=== PATIENT | female | born 1935 | race Caucasian/White ===

== ENCOUNTER → 2016-06-30 | Outpatient (CLI) | payer OTHER ==
[~2016-06-30] MED LIST: ALPR-411 PO; ASPI81TA28 PO; ATOR-22 PO; BROM0.0911 OPR; CALC-214 PO; CHOL20009 PO; CLIN1CAP51 PO; HYDR25TA4 PO; LEVO50TA6 PO; METO1TAB68 PO; MULT-513 PO; POTA20TA16 PO; PRED1SUS3 OPR; TAMO20TA47 PO
[2016-06-30 12:44] LABS: BLOOD UREA NITROGEN 16 mg/dl (7-18)
== END | disposition home or self-care (01) ==
LOC: C.LABPVFM 10:10
PROVIDERS: ATTEND Radiology Radiation Oncology
DX: C50.112 Malignant neoplasm of central portion of left female breast (principal); R91.8 Other nonspecific abnormal finding of lung field

== ENCOUNTER → 2016-07-31 | Outpatient (CLI) | payer OTHER ==
[2016-07-31 13:05] LABS: BLOOD UREA NITROGEN 16 mg/dl (7-18); BUN/CREATININE RATIO 13.5 (10-20); CARBON DIOXIDE 26 mmol/L (21-32); CHLORIDE 100 mmol/L (98-107); GLUCOSE 107 mg/dl (70-99); POTASSIUM 3.7 mmol/L (3.5-5.1); SODIUM 137 mmol/L (136-145)
== END | disposition home or self-care (01) ==
LOC: C.LABPVFM 09:35
PROVIDERS: ATTEND Family Medicine
DX: I10 Essential (primary) hypertension (principal); E03.8 Other specified hypothyroidism; E03.4 Atrophy of thyroid (acquired)

== ENCOUNTER 2022-12-16 22:29 | Inpatient (IN) ==
--- NOTE | 2022-12-16 23:38 | Emergency Department Note ---
History of Present Illness General Chief complaint: Hip Pain Stated complaint: FELL,HURT LEFT HIP Time Seen by Provider: 12/16/22 23:05 History of Present Illness Maximum Pain Intensity: 8 87-year-old female presents to the emergency department accompanied by daughter for evaluation of left hip pain. Patient states she was emptying her garbage can yesterday off of her deck and lost her balance and fell landing onto the left hip. Deck height approximately 1.5 feet. She denies hitting her head or loss of consciousness. She is not on any blood thinner. She notes pain in her left groin and hip and is unable to ambulate. She typically walks with a cane but has been unable to since incident yesterday. She denies numbness/tingling into the distal extremity. She did denies previous hip injury or surgery. She did have her left knee replaced a long time ago. She denies chest pain, shortness of breath, abdominal pain, rib pain, upper extremity pain, fever/chills, nausea/vomiting. She took Tylenol at 1030 for her symptoms. Home Medications Medication Instructions Recorded Confirmed Type ASPIRIN (ASPIRIN EC) 81 mg PO HS ##0 11/24/15 History ATORVASTATIN (LIPITOR) 1 tab PO HS ##0 11/24/15 History Clindamycin HCl 4 cap PO prior to dental ##0 11/24/15 History LEVOTHYROXINE SODIUM 1 tab PO QAM ##0 11/24/15 History METOPROLOL SUCCINATE (TOPROL XL) 1 tab PO QAM ##0 11/24/15 History Multivitamins/Minerals (Mvi With 1 tab PO NOON #0 tabs 11/24/15 History Minerals) CALCIUM W/ MAGNESIUM (CALCIUM & 1 tab PO QAM ##0 11/30/15 History MAGNESIUM) CHOLECALCIFEROL (VITAMIN D) 1 tab PO QAM ##0 11/30/15 History Allergies Allergy/AdvReac Type Severity Reaction Status Date / Time celecoxib Allergy Intermediate shaking Unverified 01/17/16 06:51 sensations erythromycin base Allergy Intermediate ABDOMINAL Verified 01/17/16 06:51 PAIN latex Allergy Intermediate dermatitis Unverified 01/17/16 06:51 Penicillins Allergy Intermediate SWELLING Verified 01/17/16 06:51 Sulfa (Sulfonamide Allergy Intermediate SWELLING Verified 01/17/16 06:51 Antibiotics) NARCOTICS Allergy Intermediate PAIN, Uncoded 11/30/15 08:19 SHAKES, VOMITING Past Med/Surg History Social History Smoking Status: Former smoker Hx Alcohol Use: Yes Alcohol type: wine Hx Substance Use: No Preferred Language: Spanish C Python Developer Required: No Beliefs That Will Affect Care: None Current Living Situation: Alone Feels Safe at Home: Yes Assistive Devices: Cane Physical Exam Vital Signs Vital Signs - 24 hr 12/16/22 22:32 12/17/22 01:31 12/17/22 02:31 Temperature 36.9 C Temperature Source Temporal Artery Scan Pulse Rate 70 Pulse Rate [Apical] 80 68 Respiratory Rate 19 18 17 Respiratory Effort / Characteristics Respiratory Depth Respiratory Pattern Blood Pressure 176/80 H Blood Pressure [Right Arm] 182/98 H 196/96 H Blood Pressure Mean 112 Blood Pressure Mean [Right Arm] 126 129 Pulse Oximetry 95 95 97 Oxygen Delivery Method Room Air Room Air Room Air Sepsis Recent Fever Within 48 Hours No Sepsis New/Unexplained Change in Mental Status N/A Sepsis Action Taken by Nursing No Action Required 12/17/22 04:07 12/17/22 05:26 Temperature Temperature Source Pulse Rate Pulse Rate [Apical] 81 79 Respiratory Rate 14 16 Respiratory Effort / Characteristics Non-Labored Spontaneous Non-Labored Spontaneous Respiratory Depth Normal Normal Respiratory Pattern Regular Blood Pressure Blood Pressure [Right Arm] 182/91 H 202/95 H Blood Pressure Mean Blood Pressure Mean [Right Arm] 121 130 Pulse Oximetry 98 94 Oxygen Delivery Method Room Air Room Air Sepsis Recent Fever Within 48 Hours Sepsis New/Unexplained Change in Mental Status Sepsis Action Taken by Nursing Constitutional: alert and oriented x3. no acute distress. nontoxic. HEENT: normocephalic, atraumatic. normal conjunctiva.PERRLA. EOM's grossly intact. TMs pearly alvarez without effusion. Pharynx pink without exudate. Tonsils nonenlarged. Mucus membranes moist Neck: neck is supple, nontender. midline C-spine nontender Respiratory: lungs are clear to auscultation without wheezes, rhonchi, or rales bilaterally. equal chest rise. normal respiratory effort, no accessory muscle use. Cardiovascular: normal heart sounds without murmur. regular rate and rhythm. GI: abdomen is soft, nontender. No palpable masses. No rebound tenderness or guarding. No CVA tenderness MSK: Tender to palpation left groin. Nontender over the left lateral hip/femur. Knee and ankle nontender. No extremity shortening or rotation. Pain elicited with hip flexion. Left lower extremity range of motion intact. Strength +4 and equal bilateral lower extremities Peripheral vascular: Lower extremities warm and well perfused with palpable pedal pulses. Brisk capillary refill of all digits. Sensation intact Psych:appropriate mood and affect. Course Administered Medications Calcium/Vitamin D (Calcium 600mg + Vit D 400 Iu Tab) [facility] [place]: 01/16/23 08:59 Last Admin: 12/17/22 10:08 Dose: 1 tab Documented By: ANASTACIO Heparin Sodium (Porcine) (Heparin Sod 5,000 Unit/0.5 Ml Vial) 5,000 units SQ Q8 [facility] Stop: 01/16/23 08:49 Last Admin: 12/17/22 10:12 Dose: 5,000 units Documented By: ANASTACIO Hydralazine HCl (Hydralazine Hcl 20 Mg/Ml Vial) 7.5 mg IV Q6H PRN PRN Reason: Hypertension Stop: 01/16/23 08:49 Last Admin: 12/17/22 09:06 Dose: 7.5 mg Documented By: ANASTACIO Levothyroxine Sodium (Levothyroxine Sodium 50 Mcg Tablet) [facility]cg [facility] Stop: 01/16/23 06:29 Last Admin: 12/17/22 10:08 Dose: 50 mcg Documented By: ANASTACIO Metoprolol Succinate (Metoprolol Succ 50mg Ext Rel Tab) 100 mg PO [facility] Stop: 01/16/23 08:59 Last Admin: 12/17/22 10:07 Dose: 100 mg Documented By: ANASTACIO Multivitamins/Minerals (Cerovite Adv Formula Tab) 1 tab PO DAILY@1200 [facility] Stop: 01/16/23 11:59 Last Admin: 12/17/22 10:08 Dose: 1 tab Documented By: ANASTACIO Vitamin D (Cholecalciferol 1,000 Units 25 Mcg Tab) 2,000 units PO QAM TIM Stop: 01/16/23 08:59 Last Admin: 12/17/22 10:07 Dose: 2,000 units Documented By: ANASTACIO Discontinued Medications Sodium Chloride (Nss 1000ml) 1,000 mls @ 75 mls/hr IV .[id number] TIM Stop: 12/17/22 22:09 Last Admin: 12/17/22 09:06 Dose: 75 mls/hr Documented By: ANASTACIO Medical Decision Making Differential Diagnosis Fracture, subluxation, dislocation, contusion, ligamentous injury, neurovascular, compartment syndrome, rhabdomyolysis, as well as other pathologies. Laboratory Data Attestation: I reviewed the patient's lab results. 12/17/22 00:41 12/17/22 09:06 Lab Results 12/17/22 12/17/22 12/17/22 Range/Units 00:41 00:41 01:30 WBC 6.16 (4.8-10.8) K/ul RBC 3.31 L (4.20-5.40) M/uL Hgb 11.0 L (12.0-16.0) g/dl Hct 31.7 L (37.0-47.0) % MCV 95.8 (80.0-100.0) fL MCH 33.2 (25.0-34.0) pg MCHC 34.7 (32.0-36.0) g/dL RDW Std Deviation 40.2 (36.4-46.3) fL RDW Coeff of Gayle 11.5 (11.5-14.5) % Plt Count 184 (130-400) K/uL MPV 9.9 (9.4-12.4) fL Immature Gran % (Auto) 0.3 % Neut % (Auto) 69.0 % Lymph % (Auto) 16.9 % [place] % (Auto) 13.1 % Eos % (Auto) 0.5 % Baso % (Auto) 0.2 % Neut # (Auto) 4.25 (1.40-6.50) K/uL Lymph # (Auto) 1.04 L (1.2-3.4) K/uL [place] # (Auto) 0.81 H (0.11-0.59) K/uL Eos # (Auto) 0.03 (0-0.50) K/uL Baso # (Auto) 0.01 (0-0.2) K/uL Immature Gran # (Auto) 0.02 (0.01-0.20) K/uL Sodium 126 L (136-145) mmol/L Potassium 4.1 (3.5-5.1) mmol/L Chloride 95 L (98-107) mmol/L Carbon Dioxide 25 (21-32) mmol/L Anion Gap 6 (3-11) BUN 16 (6-23) mg/dl Creatinine 1.06 (0.6-1.2) mg/dl Est Cr Clr Drug Dosing Not Reportable Est GFR ( Amer) 55.4 ml/min Est GFR (Non-Af Amer) 47.8 ml/min BUN/Creatinine Ratio 15.1 (10-20) Glucose 121 H (70-99(Fasting)) mg/dl Calcium 9.4 (8.6-10.3) mg/dl SARS-CoV-2, RNA, NAAT NEGATIVE (NEGATIVE) Imaging Data My Impression: Left hip with pelvis x-ray per my interpretation demonstrates left inferior ramus pubic fracture Radiologist's Impression: Hip/Pelvis X-Ray 12/16/22 23:32 XR hip LT 2V w pelvis CLINICAL HISTORY: fall, groin pain COMPARISON: None FINDINGS: No proximal femoral fractures are present. Lucency and subtle cortical irregularity of the medial left pubic bone favors a fracture. There is also a suspected acute nondisplaced inferior left pubic ramus fracture. IMPRESSION: 1. Acute left pubic ring fractures, as above. 2. No proximal femoral fractures. ACT 112: Negative or not required by law. Electronically signed by: Joseph Peña M.D. 12/17/2022 7:[address] 12/17/22 00:04 Exam(s): CT PELVIS Without Contrast EXAM: CT Pelvis Without Intravenous Contrast CLINICAL HISTORY: Reason for exam: concern for L inferior ramus fx on xr. TECHNIQUE: Axial computed tomography images of the pelvis without intravenous contrast. Automated exposure control was utilized for the study. A dose lowering technique was utilized adhering to the principles of ALARA. COMPARISON: No relevant prior studies available. FINDINGS: Bowel: Unremarkable. No obstruction. No mucosal thickening. Appendix: No findings to suggest acute appendicitis. Intraperitoneal space: Unremarkable. No free air. No significant fluid collection. Bladder: Unremarkable. No stones. Reproductive: Unremarkable as visualized. Bones/joints: There is a nondisplaced fracture of the left inferior pubic ramus (image 98 series 3). There are degenerative changes of the lumbar spine. No dislocation. Soft tissues: Residual suture material in the rectus musculature. Vasculature: There is diffuse atherosclerotic calcification of the aorta and its major branch vessels. No lower abdominal aortic aneurysm. Lymph nodes: Unremarkable. No enlarged lymph nodes. IMPRESSION: Nondisplaced left inferior pubic ramus fracture. Electronically signed by: Alvaro Feliciano MD 12/17/22 01:08 AM MDM Narrative 87-year-old female who presents to the emergency department accompanied by family for evaluation of left groin/hip pain s/p mechanical fall yesterday. Review of pertinent visits and past medical history performed. Vital signs stable, afebrile. On exam, patient is nontoxic-appearing in no acute distress. She is tender to palpation over the left groin. No significant tenderness over the left lateral hip. No obvious lower extremity shortening or rotation. Range of motion is intact with pain elicited during hip flexion. The left lower extremity is neurovascularly intact. X-ray of the left hip with pelvis was performed and demonstrates possible left inferior ramus fracture. CT of the pelvis was performed for definitive diagnosis and demonstrate nondisplaced left inferior pubic ramus fracture. Patient declined need for pain medications while in the ED. Upon reevaluation, patient remained stable with no new concerns. They were updated on all exam findings and test results. She has sustained a nondisplaced pelvic fracture. Left lower extremity is neurovascularly intact and her pain is currently adequately controlled. An ambulatory trial was attempted but patient was unable to perform secondary to pain. We discussed treatment options. Given ambulatory dysfunction, I do feel admission to the hospital for inpatient rehab is warranted at this time. Patient and family are agreeable to this. Basic labs were obtained for admission and significant for hyponatremia of 126. Case was discussed with hospitalist, Dr. Lazaro, who graciously excepted patient to his service for further management. Patient was admitted in stable condition. Impression & Plan Pelvic fracture, Hyponatremia Discharge Plan Visit Data Chief Complaint: Hip Pain Stated Complaint: FELL,HURT LEFT HIP ED Provider: Lita Lemus ED Midlevel Provider: Tamy Maier Discharge Problem: Pelvic fracture, Hyponatremia Patient Disposition: Admitted As Inpatient Discharge Instructions Interventions: ED Discharge Assessment Last Done: 12/17/22 08:21
--- NOTE | 2022-12-17 01:09 | CT Scan Report ---
Exam(s): CT PELVIS Without Contrast EXAM: CT Pelvis Without Intravenous Contrast CLINICAL HISTORY: Reason for exam: concern for L inferior ramus fx on xr. TECHNIQUE: Axial computed tomography images of the pelvis without intravenous contrast. Automated exposure control was utilized for the study. A dose lowering technique was utilized adhering to the principles of ALARA. COMPARISON: No relevant prior studies available. FINDINGS: Bowel: Unremarkable. No obstruction. No mucosal thickening. Appendix: No findings to suggest acute appendicitis. Intraperitoneal space: Unremarkable. No free air. No significant fluid collection. Bladder: Unremarkable. No stones. Reproductive: Unremarkable as visualized. Bones/joints: There is a nondisplaced fracture of the left inferior pubic ramus (image 98 series 3). There are degenerative changes of the lumbar spine. No dislocation. Soft tissues: Residual suture material in the rectus musculature. Vasculature: There is diffuse atherosclerotic calcification of the aorta and its major branch vessels. No lower abdominal aortic aneurysm. Lymph nodes: Unremarkable. No enlarged lymph nodes. IMPRESSION: Nondisplaced left inferior pubic ramus fracture. Electronically signed by: Alvaro Feliciano MD 12/17/22 01:08 AM
[2022-12-17 01:20] LABS: Basophils # (auto) 0.01 K/uL (0-0.2); Basophils % (auto) 0.2 %; Eosinophils # (auto) 0.03 K/uL (0-0.50); Eosinophils % (auto) 0.5 %; Hematocrit (blood only) 31.7 % (37.0-47.0); Immature Granulocytes # (auto) 0.02 K/uL (0.01-0.20); Immature Granulocytes % (auto) 0.3 %; Lymphocytes # (auto) 1.04 K/uL (1.2-3.4); Lymphocytes % (auto) 16.9 %; Mean Corpuscular Hemoglobin 33.2 pg (25.0-34.0); Mean Corpuscular Hgb Conc 34.7 g/dL (32.0-36.0); Mean Corpuscular Volume 95.8 fL (80.0-100.0); Mean Platelet Volume 9.9 fL (9.4-12.4); Monocytes # (auto) 0.81 K/uL (0.11-0.59); Monocytes % (auto) 13.1 %; Neutrophils # (auto) 4.25 K/uL (1.40-6.50); Platelet Count 184 K/uL (130-400); RDW Coefficient of Variation 11.5 % (11.5-14.5); RDW Standard Deviation 40.2 fL (36.4-46.3); Red Blood Count 3.31 M/uL (4.20-5.40); White Blood Count 6.16 K/ul (4.8-10.8)
[2022-12-17 01:27] LABS: Anion Gap 6 (3-11); BUN Creatinine Ratio 15.1 (10-20); Blood Urea Nitrogen 16 mg/dl (6-23); Calcium 9.4 mg/dl (8.6-10.3); Carbon Dioxide 25 mmol/L (21-32); Chloride 95 mmol/L (98-107); Est GFR (African American) 55.4 ml/min; Est GFR (Non-African American) 47.8 ml/min; Glucose 121 mg/dl (70-99(Fasting)); Potassium 4.1 mmol/L (3.5-5.1); Sodium 126 mmol/L (136-145)
--- NOTE | 2022-12-17 06:28 | History & Physical Report ---
Date of Service December 17, 2022 Assessment & Plan (1) Pelvic fracture: Plan: 87-year-old female s/p mechanical fall and found to have left pelvic fracture and also hyponatremia. Mechanical fall Left pelvic fracture nondisplaced Pain control Gentle fluids Ortho consult PT OT when able to Hyponatremia Sodium of 126 Getting gentle fluids We will monitor labs closely Urine osmolality, serum osmolality, urine sodium levels, Nephro consult for further recommendations Hypertension Continue on home metoprolol succinate, losartan IV hydralazine as needed Hyperlipidemia On statin Hypothyroidism On Synthyroid DVT prophylaxis heparin subcu Disposition to be determined Full code (2) Hyponatremia: History of Present Illness Chief Complaint: Fall and pelvic fracture Primary Care Provider: Juan Diego Del Rio MD 87-year-old female past medical significant for hypothyroidism, hyperlipidemia, hypertension, chronic kidney disease stage III, congenital absence of 1 kidney, history of cancer of left breast, presents with fall and found to have left pelvic fracture. Day before yesterday evening on dec she was trying to take the trash out when she slipped and fell on the left side, did not hit her head. Was able to get up and walk except for some some soreness in the left hip region. Yesterday evening she was having a lot of pain call her daughter that she has to go to the ER. Patient is very hard of hearing, daughter is in the room helped with H&P. No recent fever chills. No nausea. No chest pain or shortness of breath. No abdominal pain. Normal bowel and bladder movements. Resting comfortably and hemodynamically stable. Past medical history as mentioned above Past surgical history total knee arthroplasty, left breast biopsy, right breast biopsy, cataract surgery, , left knee arthroscopy, left partial mastectomy in 2016 and radiation treatment. Social history former smoker minimal history. Alcohol on holidays. No drug use. Family history father had colon cancer mother had colon cancer Sister with leukemia father had CHF and stroke. Allergies Allergy/AdvReac Type Severity Reaction Status Date / Time celecoxib Allergy Intermediate shaking Unverified 01/17/16 06:51 sensations erythromycin base Allergy Intermediate ABDOMINAL Verified 01/17/16 06:51 PAIN latex Allergy Intermediate dermatitis Unverified 01/17/16 06:51 Penicillins Allergy Intermediate SWELLING Verified 01/17/16 06:51 Sulfa (Sulfonamide Allergy Intermediate SWELLING Verified 01/17/16 06:51 Antibiotics) NARCOTICS Allergy Intermediate PAIN, Uncoded 11/30/15 08:19 SHAKES, VOMITING Home Medications Medication Instructions Recorded Confirmed Type ASPIRIN (ASPIRIN EC) 81 mg PO HS ##0 11/24/15 History ATORVASTATIN (LIPITOR) 1 tab PO HS ##0 11/24/15 History Clindamycin HCl 4 cap PO prior to dental ##0 11/24/15 History LEVOTHYROXINE SODIUM 1 tab PO QAM ##0 11/24/15 History METOPROLOL SUCCINATE (TOPROL XL) 1 tab PO QAM ##0 11/24/15 History Multivitamins/Minerals (Mvi With 1 tab PO NOON #0 tabs 11/24/15 History Minerals) CALCIUM W/ MAGNESIUM (CALCIUM & 1 tab PO QAM ##0 11/30/15 History MAGNESIUM) CHOLECALCIFEROL (VITAMIN D) 1 tab PO QAM ##0 11/30/15 History Past Med/Surg History Social History Smoking Status: Never smoker Preferred Language: Armenian Feels Safe at Home: Yes Review of Systems Review of Systems: All systems reviewed & are unremarkable except as noted in Subjective Physical Exam Physical Exam: General- Not in distress, Hard of hearing Head- atraumatic Eyes- PERRL ENT- oropharynx clear Neck- supple, no JVD, Lungs- clear to auscultation and percussion Heart- regular rhythm; no murmur, no gallop, no rub appreciated Abdomen- normal bowel sounds, soft, nontender, no distension. Extremities- no pretibial edema, no erythema. Neuro- alert, oriented x 3; PERRL, EOMI; no facial palsy; no dysarthria;Moves extremities. Skin- warm & dry Results & Data Results & Data Vital Signs (Past 12 Hours) Vital Signs Temp Pulse Pulse Resp BP BP Pulse Ox 12/17/22 05:26 79 16 202/95 H 94 12/17/22 04:07 81 14 182/91 H 98 12/17/22 02:31 68 17 196/96 H 97 12/17/22 01:31 80 18 182/98 H 95 12/16/22 22:32 36.9 C 70 19 176/80 H 95 O2 Del Method 12/17/22 05:26 Room Air 12/17/22 04:07 Room Air 12/17/22 02:31 Room Air 12/17/22 01:31 Room Air 12/16/22 22:32 Room Air Diagnostic Findings Laboratory Results WBC 6.16 K/ul (4.8-10.8) 12/17/22 00:41 RBC 3.31 M/uL (4.20-5.40) L 12/17/22 00:41 Hgb 11.0 g/dl (12.0-16.0) L 12/17/22 00:41 Hct 31.7 % (37.0-47.0) L 12/17/22 00:41 MCV 95.8 fL (80.0-100.0) 12/17/22 00:41 MCH 33.2 pg (25.0-34.0) 12/17/22 00:41 MCHC 34.7 g/dL (32.0-36.0) 12/17/22 00:41 RDW Std Deviation 40.2 fL (36.4-46.3) 12/17/22 00:41 RDW Coeff of Gayle 11.5 % (11.5-14.5) 12/17/22 00:41 Plt Count 184 K/uL (130-400) 12/17/22 00:41 MPV 9.9 fL (9.4-12.4) 12/17/22 00:41 Immature Gran % (Auto) 0.3 % 12/17/22 00:41 Neut % (Auto) 69.0 % 12/17/22 00:41 Lymph % (Auto) 16.9 % 12/17/22 00:41 [place] % (Auto) 13.1 % 12/17/22 00:41 Eos % (Auto) 0.5 % 12/17/22 00:41 Baso % (Auto) 0.2 % 12/17/22 00:41 Neut # (Auto) 4.25 K/uL (1.40-6.50) 12/17/22 00:41 Lymph # (Auto) 1.04 K/uL (1.2-3.4) L 12/17/22 00:41 [place] # (Auto) 0.81 K/uL (0.11-0.59) H 12/17/22 00:41 Eos # (Auto) 0.03 K/uL (0-0.50) 12/17/22 00:41 Baso # (Auto) 0.01 K/uL (0-0.2) 12/17/22 00:41 Immature Gran # (Auto) 0.02 K/uL (0.01-0.20) 12/17/22 00:41 Sodium 126 mmol/L (136-145) L 12/17/22 00:41 Potassium 4.1 mmol/L (3.5-5.1) 12/17/22 00:41 Chloride 95 mmol/L (98-107) L 12/17/22 00:41 Carbon Dioxide 25 mmol/L (21-32) 12/17/22 00:41 Anion Gap 6 (3-11) 12/17/22 00:41 BUN 16 mg/dl (6-23) 12/17/22 00:41 Creatinine 1.06 mg/dl (0.6-1.2) 12/17/22 00:41 Est Cr Clr Drug Dosing Not Reportable 12/17/22 00:41 Est GFR ( Amer) 55.4 ml/min 12/17/22 00:41 Est GFR (Non-Af Amer) 47.8 ml/min 12/17/22 00:41 BUN/Creatinine Ratio 15.1 (10-20) 12/17/22 00:41 Glucose 121 mg/dl (70-99(Fasting)) H 12/17/22 00:41 Calcium 9.4 mg/dl (8.6-10.3) 12/17/22 00:41 SARS-CoV-2, RNA, NAAT NEGATIVE (NEGATIVE) 12/17/22 01:[address] 12/17/22 00:04 Exam(s): CT PELVIS Without Contrast EXAM: CT Pelvis Without Intravenous Contrast CLINICAL HISTORY: Reason for exam: concern for L inferior ramus fx on xr. TECHNIQUE: Axial computed tomography images of the pelvis without intravenous contrast. Automated exposure control was utilized for the study. A dose lowering technique was utilized adhering to the principles of ALARA. COMPARISON: No relevant prior studies available. FINDINGS: Bowel: Unremarkable. No obstruction. No mucosal thickening. Appendix: No findings to suggest acute appendicitis. Intraperitoneal space: Unremarkable. No free air. No significant fluid collection. Bladder: Unremarkable. No stones. Reproductive: Unremarkable as visualized. Bones/joints: There is a nondisplaced fracture of the left inferior pubic ramus (image 98 series 3). There are degenerative changes of the lumbar spine. No dislocation. Soft tissues: Residual suture material in the rectus musculature. Vasculature: There is diffuse atherosclerotic calcification of the aorta and its major branch vessels. No lower abdominal aortic aneurysm. Lymph nodes: Unremarkable. No enlarged lymph nodes. IMPRESSION: Nondisplaced left inferior pubic ramus fracture. Electronically signed by: Alvaro Feliciano MD 12/17/22 01:08 AM Code Status & VTE Plan VTE Prophylaxis Plan VTE Prophylaxis will be ordered: Yes
--- NOTE | 2022-12-17 07:48 | XRay Report ---
XR hip LT 2V w pelvis CLINICAL HISTORY: fall, groin pain COMPARISON: None FINDINGS: No proximal femoral fractures are present. Lucency and subtle cortical irregularity of the medial left pubic bone favors a fracture. There is also a suspected acute nondisplaced inferior left pubic ramus fracture. IMPRESSION: 1. Acute left pubic ring fractures, as above. 2. No proximal femoral fractures. ACT 112: Negative or not required by law. Electronically signed by: Joseph Peña M.D. 12/17/2022 7:47 AM
[2022-12-17] MEDS ORDERED: SODIUM CHLORIDE 0.9% 1000ML 1,000 ML IV SCH (08:50)
[2022-12-17] MEDS ORDERED: POLYETHYLENE (MIRALAX) 17 GM PACK PO PRN (08:50)
[2022-12-17] MEDS ORDERED: ACETAMINOPHEN 325 MG TAB PO PRN (08:50)
[2022-12-17] MEDS: hydrALAZINE HCL 20 MG/ML VIAL IV PRN (09:06)
[2022-12-17 09:39] LABS: BUN Creatinine Ratio 15.6 (10-20); Calcium 9.6 mg/dl (8.6-10.3); Creatinine Clr Calc Pharmacy 39.4 ml/min; Est GFR (African American) 67.6 ml/min; Est GFR (Non-African American) 58.3 ml/min; Potassium 4.1 mmol/L (3.5-5.1)
[2022-12-17] MEDS: CHOLECALCIFEROL 1,000 UNITS 25 MCG TAB PO SCH (10:07)
[2022-12-17] MEDS: METOPROLOL SUCC 50MG EXT REL TAB PO SCH (10:07)
[2022-12-17] MEDS: CALCIUM 600MG + VIT D 400 IU TAB PO SCH (10:08)
[2022-12-17] MEDS: LEVOTHYROXINE SODIUM 50 MCG TABLET PO SCH (10:08)
[2022-12-17] MEDS: CEROVITE ADV FORMULA TAB PO SCH (10:08)
[2022-12-17] MEDS: HEPARIN SOD 5,000 UNIT/0.5 ML VIAL SQ SCH ×3 (10:12→22:28)
--- NOTE | 2022-12-17 11:57 | Nephrology Consultation ---
Date of Consultation December 17, 2022 Assessment & Plan (1) Hyponatremia: Seems like chronic problem for the last few years. Last outpatient blood work from September 2021 showed a serum sodium of 130. On admission yesterday was 126 and with the use of saline went up slightly to 128. Urine osmolarity is on the lower side she is euvolemic and urine sodium is around 70. 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 However given that she has had somewhat low sodium for years we do not necessarily have to get it although back to normal. At this point daily BMPs is enough and no need for further work-up for hyponatremia. Blood pressure is running high. Will use losartan. Continue IV fluid at 75 mill per hour as long as she is n.p.o. (2) Pelvic fracture: As per primary team. Ortho consult pending History of Present Illness Reason for Consultation: Hyponatremia Attending Physician: Pina Venegas DO History of Present Illness 87-year-old female being seen for hyponatremia. She presented to the hospital following fall and was found to have hyponatremia with a serum sodium of 126. Since being admitted she has received normal saline and this morning sodium is 128. She was not on any medications known to cause hyponatremia at home. Blood work from a few years back also showed slightly low sodium. Last outpatient blood work was from September 2021 and she had a serum sodium of 130. urine sodium is 70 urine osmolarity is 260. Blood pressure is running high. PMH and past surgical hist: Hypertension hyperlipidemia hypothyroidism chronic back pain Review of system----12 systems reviewed and negative she is complaining of pain. Otherwise negative Physical Exam Physical Exam: General- Not in distress, Hard of hearing Head- atraumatic Eyes- PERRL ENT- oropharynx clear Neck- supple, no JVD, Lungs- clear to auscultation and percussion Heart- regular rhythm; no murmur, no gallop, no rub appreciated Abdomen- normal bowel sounds, soft, nontender, no distension. Extremities- no pretibial edema, no erythema. Neuro- alert, oriented x 3; PERRL, EOMI; no facial palsy; no dysarthria;Moves extremities. Skin- warm & dry Allergies Allergy/AdvReac Type Severity Reaction Status Date / Time celecoxib Allergy Intermediate shaking Unverified 01/17/16 06:51 sensations erythromycin base Allergy Intermediate ABDOMINAL Verified 01/17/16 06:51 PAIN latex Allergy Intermediate dermatitis Unverified 01/17/16 06:51 Penicillins Allergy Intermediate SWELLING Verified 01/17/16 06:51 Sulfa (Sulfonamide Allergy Intermediate SWELLING Verified 01/17/16 06:51 Antibiotics) NARCOTICS Allergy Intermediate PAIN, Uncoded 11/30/15 08:19 SHAKES, VOMITING Home Medications Medication Instructions Recorded Confirmed Type ASPIRIN (ASPIRIN EC) 81 mg PO HS ##0 11/24/15 History ATORVASTATIN (LIPITOR) 1 tab PO HS ##0 11/24/15 History Clindamycin HCl 4 cap PO prior to dental ##0 11/24/15 History LEVOTHYROXINE SODIUM 1 tab PO QAM ##0 11/24/15 History METOPROLOL SUCCINATE (TOPROL XL) 1 tab PO QAM ##0 11/24/15 History Multivitamins/Minerals (Mvi With 1 tab PO NOON #0 tabs 11/24/15 History Minerals) CALCIUM W/ MAGNESIUM (CALCIUM & 1 tab PO QAM ##0 11/30/15 History MAGNESIUM) CHOLECALCIFEROL (VITAMIN D) 1 tab PO QAM ##0 11/30/15 History Patient History Social History Smoking Status: Former smoker Hx Alcohol Use: Yes Alcohol type: wine Hx Substance Use: No Preferred Language: [place] Citizen [employer] Manager Required: No Beliefs That Will Affect Care: None Current Living Situation: Alone Feels Safe at Home: Yes Assistive Devices: Cane Results & Data Vital Signs (Past 12 Hours) Vital Signs Temp Pulse Pulse Resp BP Pulse Ox O2 Del Method 12/17/22 10:12 90 182/86 H 12/17/22 08:15 36.7 C 65 18 218/81 H 95 Room Air 12/17/22 08:28 36.7 C 71 16 207/91 H 97 Room Air 12/17/22 07:00 75 16 197/89 H 93 Room Air 12/17/22 05:26 79 16 202/95 H 94 Room Air 12/17/22 04:07 81 14 182/91 H 98 Room Air 12/17/22 02:31 68 17 196/96 H 97 Room Air 12/17/22 01:31 80 18 182/98 H 95 Room Air Laboratory Results Serum sodium on admission 126 most recent 128 and most recent outpatient was from September 2021 and it was 130
--- NOTE | 2022-12-17 12:35 | Hospitalist Progress Note ---
Date of Service December 17, 2022 Assessment & Plan (1) Pelvic fracture: (2) Hyponatremia: (3) HTN (hypertension): Plan 87-year-old female s/p mechanical fall and found to have left pelvic fracture and also hyponatremia. Mechanical fall Left pelvic fracture nondisplaced Pain control WBAT per ortho PT/OT XR of left foot and ankle for soft tissue swelling revealed no acute fractures. 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 Hypertension-uncontrolled Continue on home metoprolol succinate, losartan IV hydralazine as needed Hyperlipidemia chronic, stable, cont statin Hypothyroidism chronic, stable. Cont Synthyroid Heparin Full code Dispo- per PT/OT recommendations. DO [facility] Hospitalist Admission and Anticipated Discharge Date Admission Date: December 17, 2022 Subjective 87 yo F presents after mechanical fall and pelvic fracture pain present with movement but not at rest some pain and dorsal swelling of her left foot describes allergic reactions to narcotics in the past. Physical Exam Physical Exam: CONSTITUTIONAL: WNWD, vitals as above, generally well-appearing, NAD EYES: normal conjunctivae, no scleral icterus ENT: external ear and nose normal NECK: trachea midline RESPIRATORY: clear to auscultation bilaterally, no crackles, rales or wheezes, normal respiratory effort CARDIOVASCULAR: regular rate and rhythm, S1 and 2 heard without murmurs, gallops or rubs, no JVD, no peripheral edema CHEST: inspection of chest was normal GASTROINTESTINAL: soft, nontender, ND, no guarding MUSCULOSKELETAL: generalized limitation in movement related to pelvic fracture. head is normocephalic and atraumatic SKIN: warm and dry NEUROLOGIC: CN 2-12 grossly intact, no sensory deficit, normal cognition, normal speech, no tremor PSYCHIATRIC: alert cooperative and oriented to person, place and time. Results & Data Results & Data Vital Signs (Past 12 Hours) Vital Signs Temp Pulse Pulse Resp BP Pulse Ox O2 Del Method 12/17/22 10:12 90 182/86 H 12/17/22 08:15 36.7 C 65 18 218/81 H 95 Room Air 12/17/22 08:28 36.7 C 71 16 207/91 H 97 Room Air 12/17/22 07:00 75 16 197/89 H 93 Room Air 07/23/23 05:26 79 16 202/95 H 94 Room Air 12/17/22 04:07 81 14 182/91 H 98 Room Air 12/17/22 02:31 68 17 196/96 H 97 Room Air 12/17/22 01:31 80 18 182/98 H 95 Room Air Laboratory Results Short CBC 12/17/22 Range/Units 00:41 WBC 6.16 (4.8-10.8) K/ul Hgb 11.0 L (12.0-16.0) g/dl Hct 31.7 L (37.0-47.0) % Plt Count 184 (130-400) K/uL BMP 12/17/22 12/17/22 00:41 09:06 Sodium 126 L 128 L Potassium 4.1 4.1 Chloride 95 L 95 L Carbon Dioxide 25 27 BUN 16 14 Creatinine 1.06 0.90 Glucose 121 H 105 H Calcium 9.4 9.6 Diagnostic Findings Hip/Pelvis X-Ray 12/16/22 23:32 XR hip LT 2V w pelvis CLINICAL HISTORY: fall, groin pain COMPARISON: None FINDINGS: No proximal femoral fractures are present. Lucency and subtle cortical irregularity of the medial left pubic bone favors a fracture. There is also a suspected acute nondisplaced inferior left pubic ramus fracture. IMPRESSION: 1. Acute left pubic ring fractures, as above. 2. No proximal femoral fractures. ACT 112: Negative or not required by law. Electronically signed by: Joseph Peña M.D. 12/17/2022 7:[address] 12/17/22 00:04 Exam(s): CT PELVIS Without Contrast EXAM: CT Pelvis Without Intravenous Contrast CLINICAL HISTORY: Reason for exam: concern for L inferior ramus fx on xr. TECHNIQUE: Axial computed tomography images of the pelvis without intravenous contrast. Automated exposure control was utilized for the study. A dose lowering technique was utilized adhering to the principles of ALARA. COMPARISON: No relevant prior studies available. FINDINGS: Bowel: Unremarkable. No obstruction. No mucosal thickening. Appendix: No findings to suggest acute appendicitis. Intraperitoneal space: Unremarkable. No free air. No significant fluid collection. Bladder: Unremarkable. No stones. Reproductive: Unremarkable as visualized. Bones/joints: There is a nondisplaced fracture of the left inferior pubic ramus (image 98 series 3). There are degenerative changes of the lumbar spine. No dislocation. Soft tissues: Residual suture material in the rectus musculature. Vasculature: There is diffuse atherosclerotic calcification of the aorta and its major branch vessels. No lower abdominal aortic aneurysm. Lymph nodes: Unremarkable. No enlarged lymph nodes. IMPRESSION: Nondisplaced left inferior pubic ramus fracture. Electronically signed by: Alvaro Feliciano MD 12/17/22 01:08 AM Medications Administered Current Inpatient Medications Acetaminophen (Acetaminophen 325 Mg Tab) 650 mg PO Q4H PRN PRN Reason: pain/fever Stop: 01/16/23 08:49 Aspirin (Aspirin 81 Mg Ectab) 81 mg PO HS [facility] Stop: 01/16/23 20:59 Atorvastatin Calcium (Atorvastatin 20 Mg Tab) 20 mg PO HS [facility] Stop: 01/16/23 20:59 Calcium/Vitamin D (Calcium 600mg + Vit D 400 Iu Tab) [facility] [place] [facility]: 01/16/23 08:59 Last Admin: 12/17/22 10:08 Dose: 1 tab Heparin Sodium (Porcine) (Heparin Sod 5,000 Unit/0.5 Ml Vial) 5,000 units SQ Q8 [facility] Stop: 01/16/23 08:49 Last Admin: 12/17/22 10:12 Dose: 5,000 units Hydralazine HCl (Hydralazine Hcl 20 Mg/Ml Vial) 7.5 mg IV Q6H PRN PRN Reason: Hypertension Stop: 01/16/23 08:49 Last Admin: 12/17/22 09:06 Dose: 7.5 mg Levothyroxine Sodium (Levothyroxine Sodium 50 Mcg Tablet) [facility] Stop: 01/16/23 06:29 Last Admin: 12/17/22 10:08 Dose: 50 mcg Losartan Potassium (Losartan Potassium 50 Mg Tab) [facility] [place] Stop: 01/16/23 12:29 Metoprolol Succinate (Metoprolol Succ 50mg Ext Rel Tab) 100 mg PO [facility] Stop: 01/16/23 08:59 Last Admin: 12/17/22 10:07 Dose: 100 mg Multivitamins/Minerals (Cerovite Adv Formula Tab) 1 tab PO DAILY@1200 [facility] Stop: 01/16/23 11:59 Last Admin: 12/17/22 10:08 Dose: 1 tab Polyethylene Glycol (Polyethylene (Miralax) 17 Gm Pack) 17 gm PO DAILY PRN PRN Reason: Constipation Stop: 01/16/23 08:49 Urea (Urea (Urea-Na) 15 Gm Pack) 15 gm PO BID TIM Stop: 01/16/23 11:59 Vitamin D (Cholecalciferol 1,000 Units 25 Mcg Tab) 2,000 units PO QAM TIM Stop: 01/16/23 08:59 Last Admin: 12/17/22 10:07 Dose: 2,000 units
[2022-12-17] MEDS: UREA (UREA-NA) 15 GM PACK PO SCH ×2 (12:54→20:16)
[2022-12-17] MEDS: LOSARTAN POTASSIUM 50 MG TAB PO SCH (12:54)
[2022-12-17 14:35] LABS: Calcium 9.3 mg/dl (8.6-10.3); Potassium 4.2 mmol/L (3.5-5.1)
--- NOTE | 2022-12-17 14:39 | Orthopedic Consultation ---
Date of Service December 17, 2022 Assessment & Plan (1) Pelvic fracture: Patient has a stable pelvis fracture. This fracture with healed with weightbearing as tolerated. The first 2 weeks of fairly typically painful but gets to get markedly better after that. It is okay for her to get up and ambulate. She will likely need a walker for the first 2 to 4 weeks. She can weight-bear as tolerated. She needs to follow-up in our clinic in about 6 weeks. I DVT prophylaxis as per the primary care service. Any orthopedic questions can be direct ca [phone] History of Present Illness Reason for Consultation: . Pelvis fracture Requesting Physician: . Attending Physician: Pina Venegas DO . Patient is an 87-year-old elderly active female who sustained a fall 2 days ago. She was apparently out on her patio and emptying a garbage can when it was some water when she lost her balance and fell on her left hip. She was initially initially able to get up and walk but yesterday was unable to walk due to severe left groin pain. No pre-existing hip problems. She was brought to emergency room x-rays of the pelvis fracture along with hyponatremia. She has been admitted by the medicine service. We have been consulted for management of her pelvis fracture. Allergies Allergy/AdvReac Type Severity Reaction Status Date / Time celecoxib Allergy Intermediate shaking Unverified 01/17/16 06:51 sensations erythromycin base Allergy Intermediate ABDOMINAL Verified 01/17/16 06:51 PAIN latex Allergy Intermediate dermatitis Unverified 01/17/16 06:51 Penicillins Allergy Intermediate SWELLING Verified 01/17/16 06:51 Sulfa (Sulfonamide Allergy Intermediate SWELLING Verified 01/17/16 06:51 Antibiotics) NARCOTICS Allergy Intermediate PAIN, Uncoded 11/30/15 08:19 SHAKES, VOMITING Home Medications Medication Instructions Recorded Confirmed Type ASPIRIN (ASPIRIN EC) 81 mg PO HS ##0 11/24/15 History ATORVASTATIN (LIPITOR) 1 tab PO HS ##0 11/24/15 History Clindamycin HCl 4 cap PO prior to dental ##0 11/24/15 History LEVOTHYROXINE SODIUM 1 tab PO QAM ##0 11/24/15 History METOPROLOL SUCCINATE (TOPROL XL) 1 tab PO QAM ##0 11/24/15 History Multivitamins/Minerals (Mvi With 1 tab PO NOON #0 tabs 11/24/15 History Minerals) CALCIUM W/ MAGNESIUM (CALCIUM & 1 tab PO QAM ##0 11/30/15 History MAGNESIUM) CHOLECALCIFEROL (VITAMIN D) 1 tab PO QAM ##0 11/30/15 History Past Med/Surg History Social History Smoking Status: Former smoker Hx Alcohol Use: Yes Alcohol type: wine Hx Substance Use: No Preferred Language: [employer] As[employer]er Required: No Beliefs That Will Affect Care: None Current Living Situation: Alone Feels Safe at Home: Yes Assistive Devices: Cane Review of Systems All systems reviewed & are unremarkable except as noted in HPI & below. Physical Exam . Physical examination reveals a pleasant elderly female. She is fairly hard of hearing. She is lying in bed looks completely comfortable watching TV. Examination of both lower extremities reveals no visible deformity. Her leg lengths are equal. She does have some bruising over her left suarez and her right toes. She is unable to do a leg lift on her left side. She is got significant groin pain with any attempted leg lift. On the left side. Minimal pain with passive hip motion. No knee effusion. She is neurologically intact. Examination the right hip reveals the patient can do a good leg lift. No pain with Hip motion. She is neurologically intact. Results & Data Results & Data Laboratory Results . Diagnostic Findings . X-rays of the pelvis and left hip reveal superior and inferior. Pubic rami fractures on the left side. No displacement. Some mild diffuse osteopenia. CT scan was reviewed. Also confirmed the rami fractures on the left side. Minimal displacement. PG Care Time/CCT Total # of Minutes Spent Total Time Spent with Patient: Total time spent is greater than 50% in coordination of care (as documented) at patient's floor/unit and/or counseling patient: Coding Level of Care Code 95322 IN/OBS CONSULT LVL 4,60M Diagnoses Pelvic fracture S32.9XXA
[2022-12-17 14:41] LABS: BUN Creatinine Ratio 19.6 (10-20); Creatinine Clr Calc Pharmacy 33.1 ml/min; Est GFR (African American) 54.8 ml/min; Est GFR (Non-African American) 47.3 ml/min
[2022-12-17] MEDS ORDERED: KETOROLAC TROMETHAMINE 15 MG/ML VIAL IV STA (16:51)
--- NOTE | 2022-12-17 17:37 | XRay Report ---
XR ankle LT min 3V routine CLINICAL HISTORY: left dorsal foot pain and swelling COMPARISON: None FINDINGS: Alignment of the left ankle is anatomic. There is no fracture. There is no osseous lesion. Talar dome is intact. IMPRESSION: Unremarkable left ankle radiographs. ACT 112: Negative or not required by law. Electronically signed by: Joseph Peña M.D. 12/17/2022 5:35 PM
--- NOTE | 2022-12-17 17:38 | XRay Report ---
XR foot LT min 3V routine CLINICAL HISTORY: left dorsal foot pain and swelling COMPARISON: None FINDINGS: There is mild hallux valgus. Alignment of the left foot is otherwise anatomic. The tarsome tatarsal joints are intact. There is no fracture. There is no osseous lesion. There is moderate osteo arthritis of the left first MTP joint. There is moderate mid foot osteoarthritis soft tissue swelling . IMPRESSION: 1. No fracture or dislocation within the left foot. 2. Moderate left first MTP joint osteoarthritis. 3. 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 ACT 112: Negative or not required by law. Electronically signed by: Joseph Peña M.D. 12/17/2022 5:37 PM
[2022-12-17] MEDS: ACETAMINOPHEN 500 MG TAB PO SCH (20:16)
[2022-12-17] MEDS: ATORVASTATIN 20 MG TAB PO SCH (20:17)
[2022-12-17] MEDS: ASPIRIN 81 MG ECTAB PO SCH (20:17)
[2022-12-17 21:48] LABS: Calcium 9.1 mg/dl (8.6-10.3); Potassium 4.1 mmol/L (3.5-5.1)
[2022-12-17 22:05] LABS: Creatinine Clr Calc Pharmacy 29.8 ml/min; Est GFR (African American) 48.2 ml/min; Est GFR (Non-African American) 41.6 ml/min
[2022-12-17] MEDS ORDERED: hydrALAZINE HCL 20 MG/ML VIAL IV STA (22:33)
[2022-12-18 03:29] LABS: Basophils # (auto) 0.02 K/uL (0-0.2); Basophils % (auto) 0.4 %; Eosinophils # (auto) 0.05 K/uL (0-0.50); Eosinophils % (auto) 0.9 %; Hematocrit (blood only) 32.6 % (37.0-47.0); Hemoglobin 11.2 g/dl (12.0-16.0); Immature Granulocytes # (auto) 0.01 K/uL (0.01-0.20); Immature Granulocytes % (auto) 0.2 %; Lymphocytes # (auto) 1.44 K/uL (1.2-3.4); Lymphocytes % (auto) 25.9 %; Mean Corpuscular Hemoglobin 32.7 pg (25.0-34.0); Mean Corpuscular Hgb Conc 34.4 g/dL (32.0-36.0); Mean Corpuscular Volume 95.3 fL (80.0-100.0); Mean Platelet Volume 10.2 fL (9.4-12.4); Monocytes # (auto) 0.91 K/uL (0.11-0.59); Monocytes % (auto) 16.3 %; Neutrophils # (auto) 3.14 K/uL (1.40-6.50); Neutrophils % (auto) 56.3 %; Platelet Count 204 K/uL (130-400); RDW Coefficient of Variation 11.8 % (11.5-14.5); RDW Standard Deviation 40.5 fL (36.4-46.3); Red Blood Count 3.42 M/uL (4.20-5.40); White Blood Count 5.57 K/ul (4.8-10.8)
[2022-12-18 03:46] LABS: BUN Creatinine Ratio 47.8 (10-20); Calcium 9.5 mg/dl (8.6-10.3); Creatinine Clr Calc Pharmacy 31.3 ml/min; Est GFR (African American) 51.3 ml/min; Est GFR (Non-African American) 44.3 ml/min; Magnesium 1.4 mg/dl (1.7-2.4); Potassium 4.4 mmol/L (3.5-5.1)
[2022-12-18] MEDS: ACETAMINOPHEN 500 MG TAB PO SCH ×3 (06:09→20:54)
[2022-12-18] MEDS: HEPARIN SOD 5,000 UNIT/0.5 ML VIAL SQ SCH ×3 (06:09→21:04)
[2022-12-18] MEDS: LEVOTHYROXINE SODIUM 50 MCG TABLET PO SCH (06:10)
[2022-12-18] MEDS: MAGNESIUM SULFATE / D5W 1 GM/100 ML BAG IV SCH ×2 (07:50→09:36)
[2022-12-18] MEDS: CALCIUM 600MG + VIT D 400 IU TAB PO SCH (08:37)
[2022-12-18] MEDS: CHOLECALCIFEROL 1,000 UNITS 25 MCG TAB PO SCH (08:37)
[2022-12-18] MEDS: METOPROLOL SUCC 50MG EXT REL TAB PO SCH (08:38)
[2022-12-18] MEDS: LOSARTAN POTASSIUM 50 MG TAB PO SCH (08:38)
[2022-12-18] MEDS: UREA (UREA-NA) 15 GM PACK PO SCH ×2 (08:39→20:55)
[2022-12-18 09:22] LABS: Calcium 9.7 mg/dl (8.6-10.3); Magnesium 1.7 mg/dl (1.7-2.4); Potassium 4.2 mmol/L (3.5-5.1)
[2022-12-18 09:27] LABS: Est GFR (African American) 54.8 ml/min; Est GFR (Non-African American) 47.3 ml/min
[2022-12-18 09:28] LABS: BUN Creatinine Ratio 42.1 (10-20); Creatinine Clr Calc Pharmacy 33.1 ml/min
[2022-12-18] MEDS ORDERED: SODIUM CHLORIDE 1 GM TABLET PO STA (09:35)
--- NOTE | 2022-12-18 11:08 | Nephrology Progress Note ---
Date of Service December 18, 2022 Assessment & Plan (1) Hyponatremia: Plan: Seems like chronic problem for the last few years. Last outpatient blood work from September 2021 showed a serum sodium of 130. On admission yesterday was 126 and down to 124 today. Urine osmolarity is 265 and urine sodium is around 70. 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 However given that she has had somewhat low sodium for years we do not necessarily have to get it although back to normal. At this point daily BMPs is enough and no need for further work-up for hyponatremia. -Stop IV fluids -Change to regular diet and allowed salt her food. Recommend high-protein diet. -Continue urea 15 g twice daily (2) Pelvic fracture: Plan: As per primary team. Ortho consult pending Admission and Anticipated Discharge Date Admission Date: December 17, 2022 Subjective Seen in follow-up for hyponatremia. She feels better today. Sodium is down to 124. Patient was receiving normal saline. Review of Systems Review of Systems: All other systems were reviewed and negative except as noted in HPI Physical Exam Physical Exam: General exam: Appears comfortable, no acute distress HEENT: Pupils are equal and reactive to light Neck: No JVD, neck is supple trachea is midline Respiratory system: Clear breath sounds bilaterally. Gastrointestinal: Abdomen is soft, non distended, non tender, bowel sounds are present CVS: Regular rate and rhythm. No murmurs, rubs or gallops Musculoskeletal: No joint or muscle tenderness Extremities: Non tender, no edema, peripheral pulses are present Neuro: Oriented, no tremors, no focal neurological deficits Skin: No rashes Results & Data Vital Signs (Past 12 Hours) Vital Signs Temp Pulse Resp BP Pulse Ox O2 Del Method 12/18/22 07:51 36.6 C 77 18 155/77 H 95 Room Air 12/17/22 23:50 89 148/67 H Laboratory Results 12/18/22 08:33 12/18/22 02:59 WBC 5.57 RBC 3.42 L MCV 95.3 MCH 32.7 MCHC 34.4 RDW Std Deviation 40.5 RDW Coeff of Gayle 11.8 Plt Count 204 MPV 10.2
[2022-12-18] MEDS: CEROVITE ADV FORMULA TAB PO SCH (12:33)
[2022-12-18] MEDS: SODIUM CHLORIDE 1 GM TABLET PO SCH ×2 (13:16→20:55)
--- NOTE | 2022-12-18 13:52 | Hospitalist Progress Note ---
Date of Service December 18, 2022 Assessment & Plan (1) Pelvic fracture: (2) Hyponatremia: (3) HTN (hypertension): Plan 87-year-old female s/p mechanical fall and found to have left pelvic fracture and also hyponatremia. Mechanical fall Left pelvic fracture nondisplaced Pelvis CT - Nondisplaced left inferior pubic ramus fracture Pain control w/ scheduled Tylenol. Patient intolerant to narcotics. WBAT per ortho PT/OT Follow-up with Ortho in 6 weeks PT recommending rehab, case management following Hyponatremia SIADH Na+ has been in the mid-high 120s during admission Na+ 124 today (down from 126 yesterday) Outpatient records show Na+ 130 09/2021 Nephrology consulted, likely SIADH Started on urea 15 g BID on 12/17, salt tab 1 g TID started today Daily BMP Hypertension BPs initially uncontrolled, pain likely contributing. Losartan 100mg daily added on 12/17 by nephro BPs now improved. Continue on home metoprolol succinate. IV hydralazine as needed Hyperlipidemia chronic, stable, cont statin Hypothyroidism chronic, stable. Cont Synthyroid DVT PROPHYLAXIS SQ heparin Dispo -PT/OT recommending rehab, case management following, referral to [facility] pending Patient seen in collaboration with Dr. Noonan. Admission and Anticipated Discharge Date Admission Date: December 17, 2022 Supervising Physician Co-Signing Physician Notes Patient seen and examined at bedside as a follow-up of mechanical fall/left pelvic fracture nondisplaced, orthopedic evaluated, WBAT per Ortho. Patient is also being managed for chronic hyponatremia, sodium slightly low today at 124, nephrology on board, appreciate recommendation. Patient has been declining rehab, patient advised to go to rehab before transitioning to home. On examination: Patient on room air, heart/lung/abdomen examination fairly WNL, systolic murmur at the aortic area, left hip tender. I have seen and examined the patient and have discussed the case with the provider above. I agree with the assessment and plan as stated. Subjective Follow-up for pelvic fracture, hyponatremia. Patient seen and examined. Resting in bed, worked with therapy this afternoon and was able to ambulate in the [place] with walker. Pain is controlled current regimen. Denies chest pain and shortness of breath. No lightheadedness or dizziness. Denies abdominal pain and nausea. Urinating and + BM. Review of Systems Review of Systems: ROS per HPI, all other systems reviewed and negative Physical Exam Constitutional: WD/WN, vitals as above Respiratory: normal respiratory effort, lungs clear to auscultation Cardiovascular: Rate/Rhythm: regular rate and regular rhythm Vessels: normal peripheral pulses Extremities: no edema Gastrointestinal (Abdomen): normal bowel sounds, soft, nontender, no hepatosplenomegaly Musculoskeletal: left groin pain that radiates down the left leg with movement Skin: no rashes, warm and dry Neurologic: no focal motor deficits Psychiatric: A+Ox3, euthymic affect Results & Data Results & Data Vital Signs (Past 12 Hours) Vital Signs Temp Pulse Resp BP Pulse Ox O2 Del Method 12/18/22 07:51 36.6 C 77 18 155/77 H 95 Room Air Laboratory Results Short CBC 12/18/22 Range/Units 02:59 WBC 5.57 (4.8-10.8) K/ul Hgb 11.2 L (12.0-16.0) g/dl Hct 32.6 L (37.0-47.0) % Plt Count 204 (130-400) K/uL BMP 12/17/22 12/17/22 12/18/22 14:13 21:07 02:59 Sodium 129 L 126 L 126 L Potassium 4.2 4.1 4.4 Chloride 96 L 95 L 95 L Carbon Dioxide 25 24 24 BUN 21 44 H D 54 H Creatinine 1.07 1.19 1.13 Glucose 127 H 133 H 105 H Calcium 9.3 9.1 9.5 12/18/22 08:33 Sodium 124 L Potassium 4.2 Chloride 94 L Carbon Dioxide 22 BUN 45 H Creatinine 1.07 Glucose 163 H Calcium 9.7
[2022-12-18] MEDS: ATORVASTATIN 20 MG TAB PO SCH (20:54)
[2022-12-18] MEDS: ASPIRIN 81 MG ECTAB PO SCH (20:54)
[2022-12-18] MEDS: hydrALAZINE HCL 20 MG/ML VIAL IV PRN (21:19)
[2022-12-18] MEDS ORDERED: KETOROLAC TROMETHAMINE 15 MG/ML VIAL IV ONE (22:28)
[2022-12-19] MEDS: ACETAMINOPHEN 500 MG TAB PO SCH ×3 (04:12→20:37)
[2022-12-19] MEDS: LEVOTHYROXINE SODIUM 50 MCG TABLET PO SCH (05:29)
[2022-12-19] MEDS: HEPARIN SOD 5,000 UNIT/0.5 ML VIAL SQ SCH ×3 (05:29→21:22)
[2022-12-19 07:18] LABS: BUN Creatinine Ratio 51.4 (10-20); Calcium 9.6 mg/dl (8.6-10.3); Creatinine Clr Calc Pharmacy 33.7 ml/min; Est GFR (African American) 56.1 ml/min; Est GFR (Non-African American) 48.4 ml/min; Potassium 4.2 mmol/L (3.5-5.1)
[2022-12-19] MEDS: CALCIUM 600MG + VIT D 400 IU TAB PO SCH (08:17)
[2022-12-19] MEDS: CHOLECALCIFEROL 1,000 UNITS 25 MCG TAB PO SCH (08:17)
[2022-12-19] MEDS: METOPROLOL SUCC 50MG EXT REL TAB PO SCH (08:18)
[2022-12-19] MEDS: SODIUM CHLORIDE 1 GM TABLET PO SCH (08:18)
[2022-12-19] MEDS: LOSARTAN POTASSIUM 50 MG TAB PO SCH (08:18)
[2022-12-19] MEDS: UREA (UREA-NA) 15 GM PACK PO SCH (08:19)
--- NOTE | 2022-12-19 10:11 | Student Report ---
[facility] Student Progress Note Advanced Practice Practitioner Student Attestation: Not to be used for clinical decision making or plan of care formulation. Date of Service Date of service: December 19, 2022 Subjective Subjective: NAEO. Pt OOB in chair. Only c/o pain are pelvis with movement/ambulation. Feels pain is more tolerable with current pain medications and feels that it has eased some as well. Pt reports having a good nights rest and is looking forward to working with PT today. She denies fever, chills, CP SOB, N/V/D, trouble with bowel/bladder habits. Reports BM yesterday. She is feeling a little anxious about going to rehab, but is hopeful that she will be able to return home afterwards. ROS ROS: See above for pertinent positives & negatives. A total of 10 systems reviewed and were otherwise negative. Physical Exam Physical Exam: Vital signs reviewed. General: Well-appearing, in no significant distress. Converses easily and appropriately. HEENT: No scleral icterus, PERRLA, neck supple. Atraumatic. Cardiovascular: Regular rate and rhythm, no extra sounds. Pulmonary: Clear to auscultation bilaterally, normal work of breathing. Abdomen: Soft, nontender, nondistended, positive bowel sounds. Musculoskeletal: Atraumatic, no peripheral edema. Neurologic: Patient awake alert and oriented x 3, full strength in BUE extremities, +4 BLE. Skin: Warm, dry, no rash Results Results: Laboratory Results WBC 5.57 K/ul (4.8-10.8) 12/18/22 02:59 RBC 3.42 M/uL (4.20-5.40) L 12/18/22 02:59 Hgb 11.2 g/dl (12.0-16.0) L 12/18/22 02:59 Hct 32.6 % (37.0-47.0) L 12/18/22 02:59 MCV 95.3 fL (80.0-100.0) 12/18/22 02:59 MCH 32.7 pg (25.0-34.0) 12/18/22 02:59 MCHC 34.4 g/dL (32.0-36.0) 12/18/22 02:59 RDW Std Deviation 40.5 fL (36.4-46.3) 12/18/22 02:59 RDW Coeff of Gayle 11.8 % (11.5-14.5) 12/18/22 02:59 Plt Count 204 K/uL (130-400) 12/18/22 02:59 MPV 10.2 fL (9.4-12.4) 12/18/22 02:59 Immature Gran % (Auto) 0.2 % 12/18/22 02:59 Neut % (Auto) 56.3 % 12/18/22 02:59 Lymph % (Auto) 25.9 % 12/18/22 02:59 [place] % (Auto) 16.3 % 12/18/22 02:59 Eos % (Auto) 0.9 % 12/18/22 02:59 Baso % (Auto) 0.4 % 12/18/22 02:59 Neut # (Auto) 3.14 K/uL (1.40-6.50) 12/18/22 02:59 Lymph # (Auto) 1.44 K/uL (1.2-3.4) 12/18/22 02:59 [place] # (Auto) 0.91 K/uL (0.11-0.59) H 12/18/22 02:59 Eos # (Auto) 0.05 K/uL (0-0.50) 12/18/22 02:59 Baso # (Auto) 0.02 K/uL (0-0.2) 12/18/22 02:59 Immature Gran # (Auto) 0.01 K/uL (0.01-0.20) 12/18/22 02:59 Sodium 127 mmol/L (136-145) L 12/19/22 05:59 Potassium 4.2 mmol/L (3.5-5.1) 12/19/22 05:59 Chloride 96 mmol/L (98-107) L 12/19/22 05:59 Carbon Dioxide 24 mmol/L (21-32) 12/19/22 05:59 Anion Gap 7 (3-11) 12/19/22 05:59 BUN 54 mg/dl (6-23) H 12/19/22 05:59 Creatinine 1.05 mg/dl (0.6-1.2) 12/19/22 05:59 Est Cr Clr Drug Dosing 33.7 ml/min 12/19/22 05:59 Est GFR ( Amer) 56.1 ml/min 12/19/22 05:59 Est GFR (Non-Af Amer) 48.4 ml/min 12/19/22 05:59 BUN/Creatinine Ratio 51.4 (10-20) H 12/19/22 05:59 Glucose 106 mg/dl (70-99(Fasting)) H 12/19/22 05:59 Osmolality 273 mOsm/kg (280-300) L 12/17/22 09:06 Calcium 9.6 mg/dl (8.6-10.3) 12/19/22 05:59 Magnesium 1.7 mg/dl (1.7-2.4) 12/18/22 08:33 25-OH Vitamin D Total 52.3 ng/ml (30-100) 12/19/22 05:59 Urine Osmolality 265 mOsm/kg (500-800) L 12/17/22 Unknown Ur Random Sodium 70 mmol/L 12/17/22 Unknown SARS-CoV-2, RNA, NAAT NEGATIVE (NEGATIVE) 12/17/22 01:30 Impressions Hip/Pelvis X-Ray 12/16/22 23:32 XR hip LT 2V w pelvis CLINICAL HISTORY: fall, groin pain COMPARISON: None FINDINGS: No proximal femoral fractures are present. Lucency and subtle cortical irregularity of the medial left pubic bone favors a fracture. There is also a suspected acute nondisplaced inferior left pubic ramus fracture. IMPRESSION: 1. Acute left pubic ring fractures, as above. 2. No proximal femoral fractures. ACT 112: Negative or not required by law. Electronically signed by: Joseph Peña M.D. 12/17/2022 7:[address] 12/17/22 00:04 Exam(s): CT PELVIS Without Contrast EXAM: CT Pelvis Without Intravenous Contrast CLINICAL HISTORY: Reason for exam: concern for L inferior ramus fx on xr. TECHNIQUE: Axial computed tomography images of the pelvis without intravenous contrast. Automated exposure control was utilized for the study. A dose lowering technique was utilized adhering to the principles of ALARA. COMPARISON: No relevant prior studies available. FINDINGS: Bowel: Unremarkable. No obstruction. No mucosal thickening. Appendix: No findings to suggest acute appendicitis. Intraperitoneal space: Unremarkable. No free air. No significant fluid collection. Bladder: Unremarkable. No stones. Reproductive: Unremarkable as visualized. Bones/joints: There is a nondisplaced fracture of the left inferior pubic ramus (image 98 series 3). There are degenerative changes of the lumbar spine. No dislocation. Soft tissues: Residual suture material in the rectus musculature. Vasculature: There is diffuse atherosclerotic calcification of the aorta and its major branch vessels. No lower abdominal aortic aneurysm. Lymph nodes: Unremarkable. No enlarged lymph nodes. IMPRESSION: Nondisplaced left inferior pubic ramus fracture. Electronically signed by: Alvaro Feliciano MD 12/17/22 01:08 AM Ankle X-Ray 12/17/22 16:52 XR ankle LT min 3V routine CLINICAL HISTORY: left dorsal foot pain and swelling COMPARISON: None FINDINGS: Alignment of the left ankle is anatomic. There is no fracture. There is no osseous lesion. Talar dome is intact. IMPRESSION: Unremarkable left ankle radiographs. ACT 112: Negative or not required by law. Electronically signed by: Joseph Peña M.D. 12/17/2022 5:35 PM Foot X-Ray 12/17/22 16:52 XR foot LT min 3V routine CLINICAL HISTORY: left dorsal foot pain and swelling COMPARISON: None FINDINGS: There is mild hallux valgus. Alignment of the left foot is otherwise anatomic. The tarsometatarsal joints are intact. There is no fracture. There is no osseous lesion. There is moderate osteoarthritis of the left first MTP joint. There is moderate mid foot osteoarthritis soft tissue swelling. IMPRESSION: 1. No fracture or dislocation within the left foot. 2. Moderate left first MTP joint osteoarthritis. 3. 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 ACT 112: Negative or not required by law. Electronically signed by: Joseph Peña M.D. 12/17/2022 5:37 PM Vital Signs Temp 36.5 C 12/19/22 08:10 Pulse 82 12/19/22 08:10 Resp 16 12/19/22 08:10 BP 167/82 H 12/19/22 08:10 Pulse Ox 97 12/19/22 08:10 O2 Del Method Room Air 12/19/22 08:10 Intake & Output 12/18/22 12/19/22 12/19/22 18:59 06:59 18:59 Intake Total 188.333 / 188.333 Output Total 2 / 2 Balance 186.333 / 186.333 Intake: IV 188.333 / 188.333 Magnesium Sulfate / D5w 1 gm In 188.333 / 188.333 100 ml @ 50 mls/hr IV Q2H TIM Rx#:[id number] Output: # Bowel Movements 2 / 2 Other: # Unmeasured Voids 2 1 A&P A&P: 1. Nondisplaced inferior pubic ramus fracture. Pt tolerating PT, ambulates with walker. Plan to go to rehab, awaiting bed/approval. Ortho recommends follow-up in 6 weeks. Continue acetaminophen PRN for pain. Conts daily PT, WBAT with walker. Continue [employer] vitamin D and calcium supplementation. Vitamin D level, check with am labs, or have pt followup oupt/PCP. 2. 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 Na 127 this am, improved from yesterday. Daily BMP Continue urea-Na and salt tabs 3. HTN, HLD Pt uncontrolled on admission. Home b-mignon continues inpatient. Losartan added per nephrology yesterday. Last LDL 20 (2017). Pt should follow-up with recheck as she is s/p CEA. Continue metoprolol, losartan, atorvastatin Continue ASA 81mg 4. Hypothyroidism Last TSH 0.9 (2018) Continue [employer] synthroid 5. Diet Tolerating regular diet and 1800ml fluid restriction. Continue PRN bowel regimen for constipation 6. DVT prophylaxis Heparin 5000 units every 8hrs 7. Disposition Remains under hospitalist group. Awaiting bed/approval for rehab, [facility].
--- NOTE | 2022-12-19 10:32 | Nephrology Progress Note ---
Date of Service December 19, 2022 Assessment & Plan Admission and Anticipated Discharge Date Admission Date: December 17, 2022 Subjective Assessment & Plan (1) Hyponatremia: Seems like chronic problem for the last few years. Last outpatient blood work from September 2021 showed a serum sodium of 130. On admission yesterday was 126 and with the use of saline went up slightly to 128. Urine osmolarity is on the lower side she is euvolemic and urine sodium is around 70. 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 However given that she has had somewhat low sodium for years we do not necessarily have to get it although back to normal. At this point daily BMPs is enough and no need for further work-up for hyponatremia. Blood pressure is running high. na has not changed at all with Any regimen so far of NS alone, urea and Salt tab. D/c all this. Will try NS at 100 /hr with iv lasix 30 iv q8hr for one day. repeat renal pnl at 8 PM today. Some elderly female can have Chronically Low NA. [place] for Urine measurement and convinience. Physical Exam Physical Exam: General- Not in distress, Hard of hearing Head- atraumatic Eyes- PERRL ENT- oropharynx clear Neck- supple, no JVD, Lungs- clear to auscultation and percussion Heart- regular rhythm; no murmur, no gallop, no rub appreciated Abdomen- normal bowel sounds, soft, nontender, no distension. Extremities- no pretibial edema, no erythema. Neuro- alert, oriented x 3; PERRL, EOMI; no facial palsy; no dysarthria;Moves extremities. Skin- warm & dry Results & Data Vital Signs (Past 12 Hours) Vital Signs Temp Pulse Resp BP Pulse Ox O2 Del Method 12/19/22 08:10 36.5 C 82 16 167/82 H 97 Room Air
[2022-12-19] MEDS: SODIUM CHLORIDE 0.9% 1000ML 1,000 ML IV SCH (11:35)
[2022-12-19] MEDS: CEROVITE ADV FORMULA TAB PO SCH (11:35)
[2022-12-19] MEDS: FUROSEMIDE 40 MG/4 ML VIAL IV SCH ×2 (11:35→20:36)
--- NOTE | 2022-12-19 13:42 | Hospitalist Progress Note ---
Date of Service December 19, 2022 Assessment & Plan (1) Pelvic fracture: (2) Hyponatremia: (3) HTN (hypertension): Plan 87-year-old female s/p mechanical fall and found to have left pelvic fracture and also hyponatremia. Mechanical fall Left pelvic fracture nondisplaced Pelvis CT - Nondisplaced left inferior pubic ramus fracture Pain control w/ scheduled Tylenol. Patient intolerant to narcotics. WBAT per ortho PT/OT Follow-up with Ortho in 6 weeks PT recommending rehab, case management following, referral pending for [facility] Hyponatremia SIADH Na+ has been in the mid-high 120s during admission Na+ 124 on 12/18 --> 127 today Outpatient records show Na+ 130 09/2021 Nephrology consulted, likely SIADH Started on urea 15 g BID on 12/17, salt tab 1 g TID started 12/18 12/19 - since minimal change in Na+ with above treatments, nephro d/c'ing urea and salt tabs and starting NSS @ 100/hr with Lasix 40 mg IV q8h x 24 hours. Repeat BMP at 1999. Daily BMP Hypertension BPs uncontrolled, pain possibly contributing. Losartan 100mg daily added on 12/17 by nephro Continue on home metoprolol succinate. IV hydralazine as needed Receiving diuresis as above Hyperlipidemia chronic, stable, cont statin Hypothyroidism chronic, stable. Cont Synthroid DVT PROPHYLAXIS SQ heparin Dispo -PT/OT recommending rehab, case management following, referral to [facility] pending Patient seen in collaboration with Dr. Noonan. Admission and Anticipated Discharge Date Admission Date: December 17, 2022 Supervising Physician Co-Signing Physician Notes Patient seen and examined at bedside as a follow-up of mechanical fall/left pelvic fracture nondisplaced, orthopedic evaluated, WBAT per Ortho. Patient is also being managed for chronic hyponatremia, sodium slightly low today at 124, nephrology on board, managing Na level. Patient has been declining rehab, patient advised to go to rehab before transitioning to home. On examination: Patient on room air, heart/lung/abdomen examination fairly WNL, systolic murmur at the aortic area, left hip tender. I have seen and examined the patient and have discussed the case with the provider above. I agree with the assessment and plan as stated. Subjective Follow up for pelvic fracture, hyponatremia. Patient seen and examined. Sitting up in the chair. Reports pain is well controlled. Denies chest pain and shortness of breath. No lightheadedness or dizziness No abdominal pain or nausea. Urinating and + BM without difficulty. Review of Systems Review of Systems: ROS per HPI, all other systems reviewed and negative Physical Exam Constitutional: WD/WN, vitals as above Respiratory: normal respiratory effort, lungs clear to auscultation Cardiovascular: Rate/Rhythm: regular rate and regular rhythm Vessels: normal peripheral pulses Extremities: no edema Gastrointestinal (Abdomen): Percussion/Palpation: abdomen soft; abdomen nontender Skin: no rashes, warm and dry Neurologic: no focal motor deficits Psychiatric: A+Ox3, euthymic affect Results & Data Results & Data Vital Signs (Past 12 Hours) Vital Signs Temp Pulse Resp BP Pulse Ox O2 Del Method 12/19/22 08:10 36.5 C 82 16 167/82 H 97 Room Air Laboratory Results [facility] 12/19/22 05:59 Sodium 127 L Potassium 4.2 Chloride 96 L Carbon Dioxide 24 BUN 54 H Creatinine 1.05 Glucose 106 H Calcium 9.6
[2022-12-19] MEDS: ATORVASTATIN 20 MG TAB PO SCH (20:38)
[2022-12-19] MEDS: ASPIRIN 81 MG ECTAB PO SCH (20:39)
[2022-12-19 21:22] LABS: Albumin Level 3.8 gm/dl (3.4-5.0); Calcium 9.6 mg/dl (8.6-10.3); Creatinine Clr Calc Pharmacy 24.4 ml/min; Est GFR (Non-African American) 32.8 ml/min; Phosphorus 3.9 mg/dl (2.5-4.9); Potassium 4.1 mmol/L (3.5-5.1)
[2022-12-20] MEDS: SODIUM CHLORIDE 0.9% 1000ML 1,000 ML IV SCH ×2 (01:55→11:59)
[2022-12-20] MEDS: FUROSEMIDE 40 MG/4 ML VIAL IV SCH ×2 (06:08→11:53)
[2022-12-20] MEDS: LEVOTHYROXINE SODIUM 50 MCG TABLET PO SCH (06:08)
[2022-12-20] MEDS: HEPARIN SOD 5,000 UNIT/0.5 ML VIAL SQ SCH ×3 (06:08→20:53)
[2022-12-20] MEDS: ACETAMINOPHEN 500 MG TAB PO SCH ×3 (06:08→20:48)
[2022-12-20 08:09] LABS: Calcium 9.8 mg/dl (8.6-10.3); Creatinine Clr Calc Pharmacy 30.3 ml/min; Est GFR (African American) 49.2 ml/min; Est GFR (Non-African American) 42.5 ml/min; Potassium 3.6 mmol/L (3.5-5.1)
[2022-12-20] MEDS: CHOLECALCIFEROL 1,000 UNITS 25 MCG TAB PO SCH (08:31)
[2022-12-20] MEDS: LOSARTAN POTASSIUM 50 MG TAB PO SCH (08:32)
[2022-12-20] MEDS: CALCIUM 600MG + VIT D 400 IU TAB PO SCH (08:32)
[2022-12-20] MEDS: METOPROLOL SUCC 50MG EXT REL TAB PO SCH (08:32)
[2022-12-20] MEDS: POLYETHYLENE (MIRALAX) 17 GM PACK PO SCH ×2 (09:36→20:47)
[2022-12-20] MEDS: DOCUSATE SODIUM 100 MG CAP PO SCH ×2 (10:02→20:47)
--- NOTE | 2022-12-20 10:02 | Nephrology Progress Note ---
Date of Service December 20, 2022 Assessment & Plan Admission and Anticipated Discharge Date Admission Date: December 17, 2022 Subjective Assessment & Plan (1) Hyponatremia: Seems like chronic problem for the last few years. Last outpatient blood work from September 2021 showed a serum sodium of 130. On admission yesterday was 126 and with the use of saline went up slightly to 128. Urine osmolarity is on the lower side she is euvolemic and urine sodium is around 70. 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 However given that she has had somewhat low sodium for years we do not necessarily have to get it although back to normal. At this point daily BMPs is enough and no need for further work-up for hyponatremia. Blood pressure is running high but better. na finally went up with combination of NS and Iv lasix. na now 131 where she has been for many years. Can be discharged on FFR 1200 ml per day. High protein diet. Continue this at the rehab f/u nephrology with me within 1-2 week. Important to have BMP on Sunday at the rehab and forward to my clinic. will decide whether she needs any meds that time S--No new issues. Lot of urine with saline and Lasix. na better Physical Exam Physical Exam: General- Not in distress, Hard of hearing Head- atraumatic Eyes- PERRL ENT- oropharynx clear Neck- supple, no JVD, Lungs- clear to auscultation and percussion Heart- regular rhythm; no murmur, no gallop, no rub appreciated Abdomen- normal bowel sounds, soft, nontender, no distension. Extremities- no pretibial edema, no erythema. Neuro- alert, oriented x 3; PERRL, EOMI; no facial palsy; no dysarthria;Moves extremities. Skin- warm & dry Results & Data Vital Signs (Past 12 Hours) Vital Signs Temp Pulse Pulse Resp BP Pulse Ox O2 Del Method 12/20/22 08:26 92 H 154/65 H 94 Room Air 12/20/22 07:39 36.7 C 87 16 103/57 L 96 Room Air 12/19/22 22:07 82 154/76 H
[2022-12-20] MEDS: CEROVITE ADV FORMULA TAB PO SCH (11:53)
--- NOTE | 2022-12-20 14:48 | Hospitalist Progress Note ---
Date of Service December 20, 2022 Assessment & Plan (1) Pelvic fracture: (2) Hyponatremia: (3) HTN (hypertension): Plan 87-year-old female s/p mechanical fall and found to have left pelvic fracture and also hyponatremia. Mechanical fall Left pelvic fracture nondisplaced Pelvis CT - Nondisplaced left inferior pubic ramus fracture Pain control w/ scheduled Tylenol. Patient intolerant to narcotics. WBAT per ortho PT/OT Follow-up with Ortho in 6 weeks PT recommending rehab, case management following, plan for DC to [facility] tomorrow. Hyponatremia SIADH Na+ has been in the mid-high 120s during admission Na+ 124 on 12/18 --> 127 --> 131 Outpatient records show Na+ 130 09/2021 Nephrology consulted, likely SIADH Started on urea 15 g BID on 12/17, salt tab 1 g TID started 12/18 12/19 - since minimal change in Na+ with above treatments, nephro d/c'ing urea and salt tabs and starting NSS @ 100/hr with Lasix 40 mg IV q8h x 24 hours. Repeat BMP at 1999. Na+ improved to 131 today Nephro DC recs: Can be discharged on FFR 1200 ml per day. High protein diet. Continue this at the rehab f/u nephrology with Dr. Matos within 1-2 week. Important to have BMP on Monday 12/25 at the rehab and forward to nephrology clinic. Daily BMP Hypertension BPs uncontrolled, pain possibly contributing. Losartan 100mg daily added on 12/17 by nephro Continue on home metoprolol succinate. IV hydralazine as needed Received diuresis as above Hyperlipidemia chronic, stable, cont statin Hypothyroidism chronic, stable. Cont Synthroid DVT PROPHYLAXIS SQ heparin Dispo -PT/OT recommending rehab, case management following, plan for DC to [facility] tomorrow Patient seen in collaboration with Dr. Noonan. Admission and Anticipated Discharge Date Admission Date: December 17, 2022 Supervising Physician Co-Signing Physician Notes Patient seen and examined at bedside as a follow-up of mechanical fall/left pelvic fracture nondisplaced, orthopedic evaluated, WBAT per Ortho. Patient is also being managed for chronic hyponatremia, sodium better today, nephrology on board, managing Na level. Plan to go to rehab. Pt on RA. I have seen and examined the patient and have discussed the case with the provider above. I agree with the assessment and plan as stated. Subjective Follow-up for pelvic fracture, hyponatremia. Patient seen and examined. Reports she is doing well, offers no complaints. Pain is well controlled. Awaiting placement to [facility]. Physical Exam Constitutional: WD/WN, vitals as above Respiratory: normal respiratory effort, lungs clear to auscultation Cardiovascular: Rate/Rhythm: regular rate and regular rhythm Heart Sounds: + murmur (Grade 3/6, systolic) Vessels: normal peripheral pulses Extremities: no edema Gastrointestinal (Abdomen): Percussion/Palpation: abdomen soft; abdomen nontender Skin: no rashes, warm and dry Neurologic: no focal motor deficits Psychiatric: A+Ox3, euthymic affect Results & Data Results & Data Vital Signs (Past 12 Hours) Vital Signs Temp Pulse Pulse Resp BP Pulse Ox O2 Del Method 12/20/22 08:26 92 H 154/65 H 94 Room Air 12/20/22 07:39 36.7 C 87 16 103/57 L 96 Room Air Laboratory Results [facility] 12/19/22 12/20/22 20:55 07:20 Sodium 128 L 131 L Potassium 4.1 3.6 Chloride 94 L 97 L Carbon Dioxide 25 25 BUN 58 H 48 H Creatinine 1.45 H D 1.17 Glucose 122 H 112 H Calcium 9.6 9.8 Liver Function 12/19/22 Range/Units 20:55 Albumin 3.8 (3.4-5.0) gm/dl
[2022-12-20] MEDS: ASPIRIN 81 MG ECTAB PO SCH (20:47)
[2022-12-20] MEDS: ATORVASTATIN 20 MG TAB PO SCH (20:48)
[2022-12-21] MEDS: HEPARIN SOD 5,000 UNIT/0.5 ML VIAL SQ SCH (06:09)
[2022-12-21] MEDS: LEVOTHYROXINE SODIUM 50 MCG TABLET PO SCH (06:09)
[2022-12-21] MEDS: ACETAMINOPHEN 500 MG TAB PO SCH (06:10)
[2022-12-21] MEDS: CALCIUM 600MG + VIT D 400 IU TAB PO SCH (08:08)
[2022-12-21] MEDS: DOCUSATE SODIUM 100 MG CAP PO SCH (08:09)
[2022-12-21] MEDS: CHOLECALCIFEROL 1,000 UNITS 25 MCG TAB PO SCH (08:09)
[2022-12-21] MEDS: METOPROLOL SUCC 50MG EXT REL TAB PO SCH (08:09)
[2022-12-21] MEDS: LOSARTAN POTASSIUM 50 MG TAB PO SCH (08:09)
[2022-12-21] MEDS: POLYETHYLENE (MIRALAX) 17 GM PACK PO SCH (08:10)
[2022-12-21 08:21] LABS: BUN Creatinine Ratio 34.4 (10-20); Calcium 9.9 mg/dl (8.6-10.3); Creatinine Clr Calc Pharmacy 28.3 ml/min; Est GFR (African American) 45.4 ml/min; Est GFR (Non-African American) 39.2 ml/min
[2022-12-21] MEDS ORDERED: CIPROFLOXACIN 500 MG TAB PO SCH (10:15)
--- NOTE | 2022-12-21 10:24 | Discharge Summary ---
Date of Service December 21, 2022 Admission HPI Per Admitting Provider 87-year-old female past medical significant for hypothyroidism, hyperlipidemia, hypertension, chronic kidney disease stage III, congenital absence of 1 kidney, history of cancer of left breast, presents with fall and found to have left pelvic fracture. Day before yesterday evening on deck she was trying to take the trash out when she slipped and fell on the left side, did not hit her head. Was able to get up and walk except for some some soreness in the left hip region. Yesterday evening she was having a lot of pain call her daughter that she has to go to the ER. Patient is very hard of hearing, daughter is in the room helped with H&P. No recent fever chills. No nausea. No chest pain or shortness of breath. No abdominal pain. Normal bowel and bladder movements. Resting comfortably and hemodynamically stable. Past medical history as mentioned above Past surgical history total knee arthroplasty, left breast biopsy, right breast biopsy, cataract surgery, , left knee arthroscopy, left partial mastectomy in 2015 and radiation treatment. Social history former smoker minimal history. Alcohol on holidays. No drug use. Family history father had colon cancer mother had colon cancer Sister with leukemia father had CHF and stroke. Admission Exam Per Admitting Provider General- Not in distress, Hard of hearing Head- atraumatic Eyes- PERRL ENT- oropharynx clear Neck- supple, no JVD, Lungs- clear to auscultation and percussion Heart- regular rhythm; no murmur, no gallop, no rub appreciated Abdomen- normal bowel sounds, soft, nontender, no distension. Extremities- no pretibial edema, no erythema. Neuro- alert, oriented x 3; PERRL, EOMI; no facial palsy; no dysarthria;Moves extremities. Skin- warm & dry Principal Diagnosis Stable Pelvis Fracture UTI Discharge Exam GENERAL: Alert and oriented x3. NAD, on RA. HEENT: No pallor, no icterus. Pupils equal, round and reactive to light. Oral mucosa moist. NECK: No JVD, no neck masses. HEART: S1 and S2 heard. Regular rate and rhythm. + murmur, no gallop. RESPIRATORY SYSTEM: Normal AP diameter. No accessory muscle use. No wheezing, no crackles. ABDOMEN: Soft, bowel sounds present, nontender, no distention. CENTRAL NERVOUS SYSTEM: No facial droop. Speech is clear. Obeys simple commands. Moves extremities. EXTREMITIES: No edema, no erythema seen. Discharge Data Allergies Allergy/AdvReac Type Severity Reaction Status Date / Time celecoxib Allergy Intermediate shaking Unverified 01/17/16 06:51 sensations erythromycin base Allergy Intermediate ABDOMINAL Verified 01/17/16 06:51 PAIN latex Allergy Intermediate dermatitis Unverified 01/17/16 06:51 Penicillins Allergy Intermediate SWELLING Verified 01/17/16 06:51 Sulfa (Sulfonamide Allergy Intermediate SWELLING Verified 01/17/16 06:51 Antibiotics) NARCOTICS Allergy Intermediate PAIN, Uncoded 11/30/15 08:19 SHAKES, VOMITING Consultations 12/17/22 01:23 ED Decision to Admit Stat 12/17/22 08:50 Consult Nephrology Routine Consult Orthopedic Surgery Routine Ordered Studies 12/17/22 00:04 CT pelvis wo con Stat Hospital Course (1) Pelvic fracture: (2) Hyponatremia: (3) HTN (hypertension): Plan 87-year-old female s/p mechanical fall and found to have left pelvic fracture and also hyponatremia. Mechanical fall Left pelvic fracture nondisplaced Pelvis CT - Nondisplaced left inferior pubic ramus fracture Pain control w/ scheduled Tylenol. Patient intolerant to narcotics. WBAT per ortho PT/OT Follow-up with Ortho in 6 weeks PT recommending rehab, case management following, plan for [facility]. Hyponatremia SIADH Na+ has been in the mid-high 120s during admission Na+ 124 on 12/18 --> 127 --> 131 Outpatient records show Na+ 130 09/2021 Nephrology consulted, likely SIADH Started on urea 15 g BID on 12/17, salt tab 1 g TID started 12/18 12/19 - since minimal change in Na+ with above treatments, nephro d/c'ing urea and salt tabs and starting NSS @ 100/hr with Lasix 40 mg IV q8h x 24 hours. Repeat BMP at 1999. Na+ improved to 130 today Nephro DC recs: Can be discharged on FFR 1200 ml per day. High protein diet. Continue this at the rehab f/u nephrology with Dr. Matos within 1-2 week. Important to have BMP on Monday 12/25 at the rehab and forward to nephrology clinic. Acute UTI: Patient complained of burning sensation while passing urine today, she has severe allergies to penicillin and sulfa drugs. Also allergies to erythromycin base. She is being started on ciprofloxacin -renal dose adjustment, patient's daughter was given the information regarding possible side effects including tendinopathy/rupture and possible confusion. Hypertension BPs uncontrolled, pain possibly contributing. Losartan 100mg daily added on 12/17 by nephro Continue on home metoprolol succinate. IV hydralazine as needed Received diuresis as above Hyperlipidemia chronic, stable, cont statin Hypothyroidism chronic, stable. Cont Synthroid DVT PROPHYLAXIS SQ heparin Patient being discharged to SNF with following instruction at the point of discharge: Follow-up with your primary care physician within a week time and likely you will need labs CBC/CMP/magnesium/phosphorus. For your UTI symptoms, you are being started on ciprofloxacin given multiple allergies with penicillin and sulfa drugs. As discussed at bedside, watch out for side effects including pain near the heel and confusion. Avoid fall precaution. For your low sodium level, nephrology evaluated you, recommendation is clear restriction of 1200 mL/day/high-protein diet. Important to have BMP on Monday 12/25 at the rehab and have the results forwarded to nephrology clinic. Follow- up with nephrology in 1 to 2-week upon discharge. Because of elevated blood pressure, losartan has been uptitrated this admission for your blood pressure management. Measure blood pressure twice a day, maintain a log to take to your primary care office for further evaluation/management of your blood pressure medications. Please make sure that you are able to get your medications today by calling your pharmacy before you leave the hospital so that your treatment continuity is not broken. Home Health Attestation I certify that this patient is under my care and that I, or a physicians speech pathologist assistant working with me, had a face to-face encounter that meets the home health [id number] encounter requirements with this patient. The encounter with the patient was in whole, or in part, for the following medical condition, which is the primary reason for home health care (list medical condition): I certify that, based on my findings, the following services are medically necessary home health services: My clinical findings support the need for the above services because: Further, I certify that my clinical findings support that this patient is ho mebound (i.e. absences from home require considerable and taxing effort and are for medical reasons or mandaen services or infrequently or of short duration when for other reasons) because: Certification for Home Health Services: Based on the above findings, I certify that this patient is confined to the home and needs intermittent residential care, physical therapy and/or speech therapy or continues to need occupational therapy. The patient is under my care, and I have initiated the establishment of the plan of care. This patient will be followed by a physician who will periodically review the plan of care. Total Time Total Time Spent Total Time Spent (In Minutes): 45 Discharge Plan Discharge Items Patient Disposition: Transfer Shelter Fac Reason For Visit: PELVIC FRACTURE Discharge Diagnosis: Stable Pelvis Fracture UTI Activity: Per Instructions section Activity Comment: May fuly weightbear as tolerate Weightbearing: Full weightbearing Non-emergency contact: Primary Care Provider Call non-emergency contact if: you have any medication questions, your symptoms worsen and your temperature is above 101 Follow-up/Referrals: Juan Diego Del Rio MD [Primary Care Provider] - Yimi Dexter MD [Physician] - (Orthopedic follow-up 6 weeks from injury date.) Diet: Regular Fluids: 1200ml (5 cups) Addtl Attending Provider Instructions: Follow-up with your primary care physician within a week time and likely you will need labs CBC/CMP/magnesium/phosphorus. For your UTI symptoms, you are being started on ciprofloxacin given multiple allergies with penicillin and sulfa drugs. As discussed at bedside, watch out for side effects including pain near the heel and confusion. Avoid fall precaution. For your low sodium level, nephrology evaluated you, recommendation is clear restriction of 1200 mL/day/high-protein diet. Important to have BMP on Monday 12/25 at the rehab and have the results forwarded to nephrology clinic. Follow- up with nephrology in 1 to 2-week upon discharge. Because of elevated blood pressure, losartan has been uptitrated this admission for your blood pressure management. Measure blood pressure twice a day, maintain a log to take to your primary care office for further evaluation/management of your blood pressure medications. Please make sure that you are able to get your medications today by calling your pharmacy before you leave the hospital so that your treatment continuity is not broken. Addtl Fruit Trimmer Provider Instructions: May fully weightbear a tolerated. No restrictions other than that limited by pain. Pending Studies at Discharge: Yes (? urine cx) Stand-Alone Forms: My [facility] Skilled Items Patient informed of condition?: Yes DNR: No Discharge Level of Care: Skilled Communicable Disease: No Discharge Prognosis: Stable Lines: None Urinary Catheter: No Medications and DC Order Prescriptions: New ciprofloxacin HCl 500 mg Tablet 500 mg PO DAILY 4 Days Qty: 4 0RF losartan 50 mg Tablet 100 mg PO QAM Qty: 60 0RF acetaminophen [Tylenol Extra Strength] 500 mg Tablet 1,000 mg PO Q8H 7 Days Qty: 42 0RF docusate sodium 100 mg Capsule 100 mg PO BID Qty: 30 0RF polyethylene glycol 3350 [Miralax] 17 gram Powder In Packet 17 g PO DAILY PRN (Reason: laxative effect) Qty: 30 0RF Continued Clindamycin HCl 150 MG capsule 4 cap PO prior to dental Qty: 0 atorvastatin [Lipitor] 20 mg Tablet 20 mg PO HS aspirin 81 mg Tablet,Chewable 81 mg PO HS calcium-magnesium 750-465 mg Tablet 1 tab PO BID metoprolol succinate [Toprol XL] 100 mg Tablet Extended Release 24 Hr 100 mg PO DAILY levothyroxine [Synthroid] 50 mcg Tablet 50 mcg PO DAILY cholecalciferol (vitamin D3) 25 mcg (1,000 unit) Capsule 50 mcg PO DAILY Discontinued losartan 25 mg Tablet 25 mg PO DAILY Discharge Orders: Discharge Order (Routine); Ordered 12/21/22 Ordered By: Andrew Noonan Admission Data Admit Date/Time: 12/17/22 05:50 Attending Provider: Andrew Noonan Admit Provider: Leandro Lazaro Primary Care Provider: Juan Diego Del Rio Other Providers: Leandro Lazaro ; Sissy Simons ; Yimi Dexter ; Deisi Lyles [facility] Other Interventions: Discharge Summary Assessment (RN) Last Done: 12/21/22 09:26
== END 2022-12-21 11:02 | DRG 536 ==
LOC: ED 22:29 → 3E 12-17 05:50 → SUATTDRO 12-17 05:50 → 3E 12-17 08:21

== ENCOUNTER 2024-02-21 14:39 | Inpatient (IN) ==
[2024-02-21 16:22] LABS: Basophils # (auto) 0.03 K/uL (0.00-0.20); Basophils % (auto) 0.2 %; Eosinophils # (auto) 0.01 K/uL (0.00-0.50); Eosinophils % (auto) 0.1 %; Hematocrit (blood only) 35.1 % (37.0-47.0); Hemoglobin 11.3 g/dl (12.0-16.0); Immature Granulocytes # (auto) 0.17 K/uL (0.01-0.20); Immature Granulocytes % (auto) 0.9 %; Lymphocytes # (auto) 0.95 K/uL (1.20-3.40); Lymphocytes % (auto) 4.9 %; Mean Corpuscular Hgb Conc 32.2 g/dL (32.0-36.0); Mean Corpuscular Volume 96.4 fL (80.0-100.0); Mean Platelet Volume 9.3 fL (9.4-12.4); Monocytes # (auto) 1.17 K/uL (0.11-0.59); Neutrophils # (auto) 17.03 K/uL (1.40-6.50); Neutrophils % (auto) 87.9 %; Platelet Count 427 K/uL (130-400); RDW Coefficient of Variation 11.5 % (11.5-14.5); RDW Standard Deviation 40.4 fL (36.4-46.3); Red Blood Count 3.64 M/uL (4.20-5.40); White Blood Count 19.36 K/ul (4.8-10.8)
[2024-02-21 16:40] LABS: Alanine Aminotransferase 17 U/L (7-52); Albumin Globulin Ratio 0.8 (0.9-2); Albumin Level 3.5 gm/dl (3.4-5.0); Alkaline Phosphatase 131 U/L (34-104); Anion Gap 12 (3-11); Aspartate Aminotransferase 28 U/L (13-39); BUN Creatinine Ratio 19.2 (10-20); Bilirubin,Total 0.7 mg/dl (0.2-1.0); Blood Urea Nitrogen 23 mg/dl (6-23); Calcium 9.4 mg/dl (8.6-10.3); Carbon Dioxide 23 mmol/L (21-32); Chloride 92 mmol/L (98-107); Est GFR (African American) 47.4 ml/min; Est GFR (Non-African American) 40.9 ml/min; Globulin 4.6 gm/dl (2.5-4.0); Glucose 262 mg/dl (70-99(Fasting)); Potassium 3.8 mmol/L (3.5-5.1); Sodium 127 mmol/L (136-145); Total Protein 8.1 gm/dl (6.0-8.3)
--- NOTE | 2024-02-21 17:04 | XRay Report ---
XR ribs BI min 4V w [id number] CLINICAL HISTORY: Fall. COMPARISON: Chest CT July 10, 2016. Chest radiograph right rib series February 17, 2024. FINDINGS: There is no pneumothorax or pleural effusion. No airspace opacities are present. Cardiomed iastinal silhouette is unremarkable. No acute rib fractures are identified. Subtle interstitial thick ening is likely chronic. IMPRESSION: No pneumothorax. No acute rib fractures identified. ACT 112: Negative or not required by law. Electronically signed by: Joseph Peña M.D. 02/21/2024 5:03 PM
--- NOTE | 2024-02-21 18:15 | Emergency Department Note ---
Impression & Plan Fall, Hyponatremia, Contusion of right chest wall, Contusion of knee, left, Urinary tract infection ED Provider Note NAME: MARKEL GRANADOS AGE: 88 SEX: F : 1935 ARRIVES VIA: Walk-In INFORMANT: Patient, ED PROVIDER(S): Nadir Valdivia DO CHIEF COMPLAINT: Knee pain HPI: The patient is a an 88-year-old female who presented to the emergency department for an evaluation of lower extremity pain. The patient had a fall over the weekend. She was seen in our facility for this. She was able to go home on pain medication because no acute traumatic injury was found. The patient continues to have left lower extremity pain and swelling. She was seen at her primary care physician's office today. They were concerned she may have either a knee infection or possibly a DVT so she was sent to the emergency room for further evaluation. ROS: See above HPI for pertinent positives & negatives. A total of 10 systems reviewed and were otherwise negative. PAST MEDICAL HISTORY: See Below PAST SURGICAL HISTORY: See Below FAMILY HISTORY: See Below SOCIAL HISTORY: See Below HOME MEDICATIONS: See Below ALLERGIES: See Below VITALS: See Below PHYSICAL EXAMINATION: GENERAL: The is awake and alert. She is very anxious and appears to be uncomfortable. EYES: The conjunctivae are clear. The pupils are round and reactive. EARS, NOSE, MOUTH AND THROAT: The nose is without any evidence of any deformity. NECK: The neck is nontender and supple. RESPIRATORY: Normal respiratory effort is noted there is no evidence of wheezing rhonchi or rales CARDIOVASCULAR: Regular rate and rhythm noted there no murmurs rubs or gallops normal S1 normal S2. GASTROINTESTINAL: The abdomen is soft. Abdomen is nontender. MUSCULOSKELETAL/EXTREMITIES: The is tenderness with range of motion testing of the left knee but also tenderness all the way down to the foot. Pulses are symmetric in both feet. Skin was warm and dry. Patient also has tenderness to palpation over the right lateral chest wall. SKIN: Skin was warm and dry. Trace pedal edema was noted left greater than right. NEUROLOGIC: Patient is awake alert and oriented x3. Include symmetric. MEDICAL DECISION MAKING: The patient is an 88-year-old female who presented to the emergency department for an evaluation of leg pain. The patient had a fall recently where she injured the right side of her chest and her right hip. She continued have right-sided chest pain and follow-up with her family doctor today. She was also having trouble walking because of an injury to her left knee. The patient was found to have swelling of the left leg. Doppler did not show any signs of acute DVT. She does have some swelling in the knee which could be a small effusion. The patient did not have a fever but she did have an elevated white blood cell count. Ultimately I do feel the patient's white blood cell count elevation was secondary to a urinary tract infection. She was treated with IV antibiotics. I discussed her condition with the on-call [facility] hospitalist. They have agreed to evaluate the patient in the emergency department for further management and disposition. Triage Nursing notes reviewed. Prior medical records reviewed Vital Signs: reviewed and remarkable for elevated blood pressure. Differential diagnosis: DVT, musculoskeletal, infection, joint effusion, trauma, lymphedema, idiopathic, CHF, as well as other pathologies. ER treatment provided: See below Diagnostics interpreted by me: ECG: EKG was obtained in the emergency department. My interpretation is normal sinus rhythm at [address] segment abnormalities were noted. LVH was suggested by voltage criteria. There is no PVCs. No previous tracing was available. Cardiac Monitoring: An order was placed for continuous cardiac monitoring. The monitor shows a rate of 88 beats per with sinus rhythm. Laboratory studies: As stated above and show below. Imaging studies: See below. Radiographic imaging was reviewed by myself Consultation(s): I discussed this case with Dr. Garcia [facility] Past Med/Surg History Problem List (Updated 02/21/24 @ 21:17 by Nadir Valdivia DO) Urinary tract infection (Acute) Contusion of knee, left (Acute) Contusion of right chest wall (Acute) Acute hip pain (Acute) Shoulder tendonitis (Acute) Acute shoulder pain (Acute) Fall (Acute) Hyponatremia (Acute) Pelvic fracture (Acute) Conjunctivitis (Acute) Upper respiratory infection (Acute) HTN (hypertension) (Chronic) HTN (hypertension) (Chronic) Heart disease (Chronic) Cancer (Chronic) Cellulitis (Acute) Wound infection (Acute) Social History Smoking Status: Never smoker Hx Alcohol Use: Yes Alcohol type: wine Hx Substance Use: No Preferred Language: Tajik Communication Ability: Effective [employer] Installer Required: No Beliefs That Will Affect Care: None Current Living Situation: Alone Feels Safe at Home: Yes Assistive Devices: Cane Allergies Allergies Allergy/AdvReac Type Severity Reaction Status Date / Time celecoxib Allergy Intermediate shaking Unverified 02/21/24 21:17 sensations erythromycin base Allergy Intermediate ABDOMINAL Verified 02/21/24 21:17 PAIN latex Allergy Intermediate dermatitis Unverified 02/21/24 21:17 Penicillins Allergy Intermediate SWELLING Verified 02/21/24 21:17 Sulfa (Sulfonamide Allergy Intermediate SWELLING Verified 02/21/24 21:17 Antibiotics) NARCOTICS Allergy Intermediate PAIN, Uncoded 02/21/24 21:17 SHAKES, VOMITING Home Meds Home Medications Medication Instructions Recorded Confirmed Clindamycin HCl 4 cap PO prior to dental ##0 11/24/15 12/17/22 aspirin 81 mg chewable tablet 81 mg PO HS 12/17/22 12/17/22 atorvastatin 20 mg tablet (Lipitor) 20 mg PO HS 12/17/22 12/17/22 calcium-magnesium 750 mg-465 mg 1 tab PO BID 12/17/22 12/17/22 tablet cholecalciferol (vitamin D3) 25 50 mcg PO DAILY 12/17/22 12/17/22 mcg (1,000 unit) capsule levothyroxine 50 mcg tablet 50 mcg PO DAILY 12/17/22 12/17/22 (Synthroid) metoprolol succinate 100 mg 100 mg PO DAILY 12/17/22 12/17/22 tablet,extended release 24 hr (Toprol XL) Previous Rx's Medication Instructions Recorded docusate sodium 100 mg capsule 100 mg PO BID #30 caps 12/21/22 losartan 50 mg tablet 100 mg (2 x 50 mg) PO QAM #60 tabs 12/21/22 polyethylene glycol 3350 17 gram 17 g PO DAILY PRN laxative effect 12/21/22 oral powder packet (Miralax) #30 ea Results & Data (ED) Vital Signs Vital Signs - 24 hr 02/21/24 14:40 02/21/24 18:24 02/21/24 18:29 Temperature 36.6 C Temperature Source Temporal Artery Scan Pulse Rate 90 101 H Pulse Rate [Apical] Pulse Rate from SpO2 Sensor Pulse Strength [Apical] Respiratory Rate 18 Respiratory Effort / Characteristics Respiratory Depth Respiratory Pattern Blood Pressure 149/75 H 184/93 H Blood Pressure [Right Arm] Blood Pressure Mean 99 136 Blood Pressure Mean [Right Arm] Pulse Oximetry 96 Oxygen Delivery Method Sepsis Recent Fever Within 48 Hours No Sepsis New/Unexplained Change in Mental Status N/A Sepsis Action Taken by Nursing No Action Required 02/21/24 18:33 02/21/24 18:38 02/21/24 18:51 Temperature Temperature Source Pulse Rate 100 H 108 H Pulse Rate [Apical] Pulse Rate from SpO2 Sensor 99 H Pulse Strength [Apical] Respiratory Rate 23 22 Respiratory Effort / Characteristics Respiratory Depth Respiratory Pattern Blood Pressure 181/86 H Blood Pressure [Right Arm] Blood Pressure Mean 127 Blood Pressure Mean [Right Arm] Pulse Oximetry 99 Oxygen Delivery Method Sepsis Recent Fever Within 48 Hours Sepsis New/Unexplained Change in Mental Status Sepsis Action Taken by Nursing 02/21/24 19:00 02/21/24 19:00 02/21/24 19:00 Temperature Temperature Source Pulse Rate Pulse Rate [Apical] Pulse Rate from SpO2 Sensor Pulse Strength [Apical] Respiratory Rate Respiratory Effort / Characteristics Respiratory Depth Respiratory Pattern Blood Pressure 184/83 H 184/83 H 184/83 H Blood Pressure [Right Arm] Blood Pressure Mean 140 140 140 Blood Pressure Mean [Right Arm] Pulse Oximetry Oxygen Delivery Method Sepsis Recent Fever Within 48 Hours Sepsis New/Unexplained Change in Mental Status Sepsis Action Taken by Nursing 02/21/24 19:00 02/21/24 19:06 02/21/24 19:30 Temperature Temperature Source Pulse Rate 106 H 107 H Pulse Rate [Apical] Pulse Rate from SpO2 Sensor Pulse Strength [Apical] Respiratory Rate 21 26 H Respiratory Effort / Characteristics Respiratory Depth Respiratory Pattern Blood Pressure 187/90 H Blood Pressure [Right Arm] Blood Pressure Mean 129 Blood Pressure Mean [Right Arm] Pulse Oximetry Oxygen Delivery Method Sepsis Recent Fever Within 48 Hours Sepsis New/Unexplained Change in Mental Status Sepsis Action Taken by Nursing 02/21/24 19:36 02/21/24 19:48 02/21/24 20:32 Temperature Temperature Source Pulse Rate 117 H 114 H Pulse Rate [Apical] 110 H Pulse Rate from SpO2 Sensor 115 H 112 H Pulse Strength [Apical] Normal Respiratory Rate 23 23 18 Respiratory Effort / Characteristics Non-Labored Spontaneous Respiratory Depth Normal Respiratory Pattern Regular Blood Pressure Blood Pressure [Right Arm] 168/91 H Blood Pressure Mean Blood Pressure Mean [Right Arm] 116 Pulse Oximetry 97 96 92 Oxygen Delivery Method Room Air Sepsis Recent Fever Within 48 Hours Sepsis New/Unexplained Change in Mental Status Sepsis Action Taken by [facility] Medications Current Medication List: was personally reviewed by me Laboratory Data Attestation: I reviewed the patient's lab results. 02/21/24 16:00 02/21/24 16:00 Lab Results 02/21/24 02/21/24 02/21/24 Range/Units 16:00 18:50 20:42 WBC 19.36 H (4.8-10.8) K/ul RBC 3.64 L (4.20-5.40) M/uL Hgb 11.3 L (12.0-16.0) g/dl Hct 35.1 L (37.0-47.0) % MCV 96.4 (80.0-100.0) fL MCH 31.0 (25.0-34.0) pg MCHC 32.2 (32.0-36.0) g/dL RDW Std Deviation 40.4 (36.4-46.3) fL RDW Coeff of Gayle 11.5 (11.5-14.5) % Plt Count 427 H (130-400) K/uL MPV 9.3 L (9.4-12.4) fL Immature Gran % (Auto) 0.9 % Neut % (Auto) 87.9 % Lymph % (Auto) 4.9 % Bollinger % (Auto) 6.0 % Eos % (Auto) 0.1 % Baso % (Auto) 0.2 % Neut # (Auto) 17.03 H (1.40-6.50) K/uL Lymph # (Auto) 0.95 L (1.20-3.40) K/uL Bollinger # (Auto) 1.17 H (0.11-0.59) K/uL Eos # (Auto) 0.01 (0.00-0.50) K/uL Baso # (Auto) 0.03 (0.00-0.20) K/uL Immature Gran # (Auto) 0.17 (0.01-0.20) K/uL PT Cancelled 10.3 INR Cancelled 0.9 Sodium 127 L (136-145) mmol/L Potassium 3.8 (3.5-5.1) mmol/L Chloride 92 L (98-107) mmol/L Carbon Dioxide 23 (21-32) mmol/L Anion Gap 12 H (3-11) BUN 23 (6-23) mg/dl Creatinine 1.20 (0.6-1.2) mg/dl Est Cr Clr Drug Dosing Not Reportable Est GFR ( Amer) 47.4 ml/min Est GFR (Non-Af Amer) 40.9 ml/min BUN/Creatinine Ratio 19.2 (10-20) Glucose 262 H (70-99(Fasting)) mg/dl Calcium 9.4 (8.6-10.3) mg/dl Total Bilirubin 0.7 (0.2-1.0) mg/dl AST 28 (13-39) U/L ALT 17 (7-52) U/L Alkaline Phosphatase 131 H (34-104) U/L Troponin I High Sens 15.3 H (0-14) pg/ml Total Protein 8.1 (6.0-8.3) gm/dl Albumin 3.5 (3.4-5.0) gm/dl Globulin 4.6 H (2.5-4.0) gm/dl Albumin/Globulin Ratio 0.8 L (0.9-2) Urine Color Yellow Urine Appearance Cloudy A (Clear) Urine pH 5.5 (4.5-7.5) Ur Specific Mico 1.026 (1.000-1.030) Urine Protein 2+ H (Negative) Urine Glucose (UA) Negative (Negative) Urine Ketones Trace H (Negative) Urine Blood Negative (Negative) Urine Nitrite Positive A (Negative) Urine Bilirubin Negative (Negative) Urine Urobilinogen Negative (Negative) Ur Leukocyte Esterase 1+ H (Negative) Urine WBC (Auto) 11-20 H (0-5) /hpf Urine RBC (Auto) 0-2 (0-2) /hpf U Hyaline Cast (Auto) 0-2 (0-2) /lpf U Epithel Cells (Auto) 3-5 H (0-2) /hpf Urine Bacteria (Auto) 4+ H (None Seen) Administered Medications Fentanyl Citrate (Fentanyl Citrate Pf 100 Mcg/2 Ml Vial) 50 mcg IV Q15M PRN PRN Reason: Pain Stop: 03/06/24 18:06 Last Admin: 02/21/24 19:43 Dose: 50 mcg Documented By: Admin: 02/21/24 18:28 Dose: 50 mcg Documented By: ANTHONY Discontinued Medications Sodium Chloride (Nss) 500 mls @ 999 mls/hr IV .Q31M ONE Stop: 02/21/24 18:37 Last Admin: 02/21/24 18:26 Dose: 999 mls/hr Documented By: ANTHONY Ondansetron HCl (Ondansetron Inj 2 Mg/Ml 2 Ml Vial) 4 mg IV NOW STA Stop: 02/21/24 18:08 Last Admin: 02/21/24 18:26 Dose: 4 mg Documented By: ANTHONY Imaging Data Attestation: I personally reviewed and interpreted this imaging study as follows: My Impression: X-ray of the was obtained in the emergency department. My interpretation is no free air or definite infiltrate, final report below. X-ray of the left tib-fib was obtained. My interpretation is no definite fracture, final report below. Radiologist's Impression: Ribs w/Chest X-Ray 02/21/24 14:51 XR ribs BI min 4V w [id number] CLINICAL HISTORY: Fall. COMPARISON: Chest CT July 10, 2016. Chest radiograph right rib series February 17, 2024. FINDINGS: There is no pneumothorax or pleural effusion. No airspace opacities are present. Cardiomediastinal silhouette is unremarkable. No acute rib fractures are identified. Subtle interstitial thickening is likely chronic. IMPRESSION: No pneumothorax. No acute rib fractures identified. ACT 112: Negative or not required by law. Electronically signed by: Joseph Peña M.D. 02/21/2024 5:03 PM Foot X-Ray 02/21/24 18:07 LEFT FOOT 3 VIEWS CLINICAL HISTORY: Fall. Left foot injury. FINDINGS: 3 views of the left foot are compared to study dated 12/17/2022. The oblique view is significantly degraded by motion artifact. The skeletal structures are osteopenic. No fracture is seen. There is mild hallux valgus with moderate osteoarthritic change at the first metatarsophalangeal joint. Milder arthritic change is seen throughout the remainder of the foot. Degenerative spurring is noted along the dorsal aspect of the tarsal bones. There is a tiny plantar calcaneal enthesophyte. The overlying soft tissues are normal as visualized. IMPRESSION: No acute bony abnormality is identified. Electronically signed by: Yobani Baez M.D. 02/21/2024 6:26 PM Knee X-Ray 02/21/24 18:07 LEFT KNEE 2 VIEWS; LEFT TIBIA AND FIBULA 2 VIEWS CLINICAL HISTORY: Fall. Left leg injury/pain. FINDINGS: AP and crosstable lateral views of the left knee with AP and lateral views of the left tibia and fibula are obtained. No prior studies are available for comparison at the time of dictation. The skeletal structures are osteopenic. No fracture is seen at the knee joint. There is no radiographic evidence of left tibial or fibular fracture. A left knee arthroplasty is in near anatomic alignment. There has been undersurface remodeling of the patella. No periprosthetic lucency is identified. There is a small knee joint effusion. Mild soft tissue swelling is seen throughout the left lower extremity. There is atherosclerotic calcification of the popliteal artery. A plantar heel spur is noted. IMPRESSION: 1. No acute fracture seen at the knee joint. 2. Soft tissue swelling with no radiographic evidence of left tibial or fibular fracture. 3. Small knee joint effusion. Electronically signed by: Yobani Baez M.D. 02/21/2024 6:29 PM Tibia/Fibula X-Ray 02/21/24 18:07 LEFT KNEE 2 VIEWS; LEFT TIBIA AND FIBULA 2 VIEWS CLINICAL HISTORY: Fall. Left leg injury/pain. FINDINGS: AP and crosstable lateral views of the left knee with AP and lateral views of the left tibia and fibula are obtained. No prior studies are available for comparison at the time of dictation. The skeletal structures are osteopenic. No fracture is seen at the knee joint. There is no radiographic evidence of left tibial or fibular fracture. A left knee arthroplasty is in near anatomic alignment. There has been undersurface remodeling of the patella. No periprosthetic lucency is identified. There is a small knee joint effusion. Mild soft tissue swelling is seen throughout the left lower extremity. There is atherosclerotic calcification of the popliteal artery. A plantar heel spur is noted. IMPRESSION: 1. No acute fracture seen at the knee joint. 2. Soft tissue swelling with no radiographic evidence of left tibial or fibular fracture. 3. Small knee joint effusion. Electronically signed by: Yobani Baez M.D. 02/21/2024 6:29 PM Venous Doppler Study 02/21/24 18:07 Exam(s): US VENOUS LEFT LOWER EXTREMITY EXAM: US Duplex Left Lower Extremity Veins CLINICAL HISTORY: Reason for exam: fall. TECHNIQUE: Real-time duplex ultrasound scan of the left lower extremity veins integrating B-mode two-dimensional vascular structure, Doppler spectral analysis, color flow Doppler imaging and compression. COMPARISON: No relevant prior studies available. FINDINGS: Deep veins: Unremarkable. No DVT in the visualized common femoral, femoral, proximal deep femoral or popliteal veins. The veins demonstrate normal color flow, are normally compressible, with normal phasic flow and/or augmentation response. Superficial veins: Unremarkable. No thrombus in the visualized great saphenous vein. Soft tissues: Subcutaneous tissue edema seen in the left popliteal fossa. No popliteal cyst. IMPRESSION: Normal left lower extremity duplex venous ultrasound. Electronically signed by: Jackson Guido MD 02/21/24 20:55 PM Discharge Plan Visit Data Chief Complaint: Leg Injury/Pain Stated Complaint: PAIN R RIB/BACK, L KNEE, HIGH WBC COUNT ED Provider: Nadir Valdivia Discharge Problem: Fall, Hyponatremia, Contusion of right chest wall, Contusion of knee, left, Urinary tract infection Patient Disposition: Being Evaluated by Hospitalist Forms Stand Alone Forms: My [facility] Prescriptions Prescriptions: No Action Clindamycin HCl 150 MG capsule 4 cap PO prior to dental Qty: 0 atorvastatin [Lipitor] 20 mg Tablet 20 mg PO HS aspirin 81 mg Tablet,Chewable 81 mg PO HS calcium-magnesium 750-465 mg Tablet 1 tab PO BID metoprolol succinate [Toprol XL] 100 mg Tablet Extended Release 24 Hr 100 mg PO DAILY levothyroxine [Synthroid] 50 mcg Tablet 50 mcg PO DAILY cholecalciferol (vitamin D3) 25 mcg (1,000 unit) Capsule 50 mcg PO DAILY losartan 50 mg Tablet 100 mg PO QAM Qty: 60 0RF docusate sodium 100 mg Capsule 100 mg PO BID Qty: 30 0RF polyethylene glycol 3350 [Miralax] 17 gram Powder In Packet 17 g PO DAILY PRN (Reason: laxative effect) Qty: 30 0RF Referrals Referrals: Juan Diego Del Rio MD [Outside Practitioners] - Discharge Problem: Fall Qualifiers: Encounter type: initial encounter Qualified Code(s): W19.XXXA - Unspecified fall, initial encounter Contusion of right chest wall Qualifiers: Encounter type: initial encounter Qualified Code(s): S20.211A - Contusion of right front wall of thorax, initial encounter Contusion of knee, left Qualifiers: Encounter type: initial encounter Qualified Code(s): S80.02XA - Contusion of left knee, initial encounter Urinary tract infection Qualifiers: Urinary tract infection type: site unspecified Hematuria presence: with hematuria Qualified Code(s): N39.0 - Urinary tract infection, site not specified
[2024-02-21] MEDS: SODIUM CHLORIDE 0.9% 500 ML IV ONE (18:26)
[2024-02-21] MEDS: ONDANSETRON INJ 2 MG/ML 2 ML VIAL IV STA (18:26)
[2024-02-21] MEDS: fentaNYL citrate PF 100 MCG/2 ML VIAL IV PRN (18:28)
--- NOTE | 2024-02-21 18:28 | XRay Report ---
LEFT FOOT 3 VIEWS CLINICAL HISTORY: Fall. Left foot injury. FINDINGS: 3 views of the left foot are compared to study dated 12/17/2022. The oblique view is signifi cantly degraded by motion artifact. The skeletal structures are osteopenic. No fracture is seen. Ther e is mild hallux valgus with moderate osteoarthritic change at the first metatarsophalangeal joint. M ilder arthritic change is seen throughout the remainder of the foot. Degenerative spurring is noted a long the dorsal aspect of the tarsal bones. There is a tiny plantar calcaneal enthesophyte. The overl aneudy soft tissues are normal as visualized. IMPRESSION: No acute bony abnormality is identified. Electronically signed by: Yobani Baez M.D. 02/21/2024 6:26 PM
--- NOTE | 2024-02-21 18:30 | XRay Report ---
LEFT KNEE 2 VIEWS; LEFT TIBIA AND FIBULA 2 VIEWS CLINICAL HISTORY: Fall. Left leg injury/pain. FINDINGS: AP and crosstable lateral views of the left knee with AP and lateral views of the left tibi a and fibula are obtained. No prior studies are available for comparison at the time of dictation. Th e skeletal structures are osteopenic. No fracture is seen at the knee joint. There is no radiographic evidence of left tibial or fibular fracture. A left knee arthroplasty is in near anatomic alignment. There has been undersurface remodeling of the patella. No periprosthetic lucency is identified. Ther e is a small knee joint effusion. Mild soft tissue swelling is seen throughout the left lower extremi ty. There is atherosclerotic calcification of the popliteal artery. A plantar heel spur is noted. IMPRESSION: 1. No acute fracture seen at the knee joint. 2. Soft tissue swelling with no radiographic evidence of left tibial or fibular fracture. 3. Small knee joint effusion. Electronically signed by: Yobani Baez M.D. 02/21/2024 6:29 PM
[2024-02-21 19:35] LABS: INR 0.9 (0.9-1.1); Prothrombin Time 10.3 Seconds (9.0-12.0)
[2024-02-21 20:49] LABS: Appearance Urine Cloudy (Clear); Bacteria Urine Automated 4+ (None Seen); Bilirubin Urine Negative (Negative); Blood Urine Negative (Negative); Cast Urine Automated 0-2 /lpf (0-2); Color Urine Yellow; Glucose Urine UA Negative (Negative); Ketones Urine Trace (Negative); Leukocyte Esterase Urine 1+ (Negative); Nitrite Urine Positive (Negative); Protein Urine 2+ (Negative); RBC Urine Automated 0-2 /hpf (0-2); Specific Gravity Urine 1.026 (1.000-1.030); Urobilinogen Urine Negative (Negative); pH Urine 5.5 (4.5-7.5)
--- NOTE | 2024-02-21 20:56 | Ultrasound Report ---
Exam(s): US VENOUS LEFT LOWER EXTREMITY EXAM: US Duplex Left Lower Extremity Veins CLINICAL HISTORY: Reason for exam: fall. TECHNIQUE: Real-time duplex ultrasound scan of the left lower extremity veins integrating B-mode two-dimensional vascular structure, Doppler spectral analysis, color flow Doppler imaging and compression. COMPARISON: No relevant prior studies available. FINDINGS: Deep veins: Unremarkable. No DVT in the visualized common femoral, femoral, proximal deep femoral or popliteal veins. The veins demonstrate normal color flow, are normally compressible, with normal phasic flow and/or augmentation response. Superficial veins: Unremarkable. No thrombus in the visualized great saphenous vein. Soft tissues: Subcutaneous tissue edema seen in the left popliteal fossa. No popliteal cyst. IMPRESSION: Normal left lower extremity duplex venous ultrasound. Electronically signed by: Jackson Guido MD 02/21/24 20:55 PM
[2024-02-21] MEDS: cefTRIAXone SODIUM 2,000 MG/50 ML BAG IV STA (21:28)
[2024-02-21] MEDS: METOPROLOL TARTRATE 1 MG/ML VIAL IV STA (21:47)
[2024-02-21] MEDS: POTASSIUM CHLORIDE PWD 20 MEQ PACK PO STA (22:05)
[2024-02-21 22:31] LABS: Partial Thromboplastin Ratio 1.2; Partial Thromboplastin Time 31 Seconds (21-31)
[2024-02-21] MEDS: oxyCODONE HCL IR 5 MG TAB (IMMEDIATE RELEASE) PO STA (22:54)
--- NOTE | 2024-02-21 23:01 | History & Physical Report ---
Date of Service February 21, 2024 Assessment & Plan (1) Hypertensive crisis: Plan: Secondary to discomfort Sepsis Multifactorial : Complicated UTI Left knee joint/LLE cellulitis Troponin elevation secondary to illness and uncontrolled blood pressure acute on chronic hyponatremia, secondary to illness, underlying SIADH chronic diastolic heart failure (EF 70%, TTE 2022), patient on the dry side valvular heart disease (mild to moderate , TTE 2022) hyperlipidemia, on statin Rx hypothyroidism, euthyroid as of today's TSH left breast cancer status post surgery/radiation chronic anemia, hemoglobin at baseline Hyperglycemia rule out DM past tobacco abuse Admit to PCU Analgesia, IV Lopressor 1 dose now CS, Ceftriaxone for complicated UTI, Vancomycin for MRSA coverage for possible septic arthritis Orthopedics consult Re: Left knee effusion (Patient known to Dr. Dexter.) N.p.o. in anticipation of procedure Follow troponin, TTE for progression Careful correction of sodium, hyponatremia workup Check hemoglobin A1c DVT prophylaxis. SCDs Re: Possible procedure Recommend pharmacologic anticoagulation with Lovenox 40 mg subcutaneous daily once bleeding risk is deemed to be minimal and negligible pending Orthopedics evaluation. Full code Patient daughter requesting updates providers. Ms. Olya Ramirez, contact #[phone]. Text document was generated using [employer] voice recognition software. It may contain grammatical or spelling errors. Kindly contact undersigned for clarification of any documentation item in question. History of Present Illness Chief Complaint: Worsening back pain, left leg pain/swelling Primary Care Provider: Franco Leal DO History obtained from patient, family, and records. Medical history significant for chronic diastolic heart failure (EF 70%, TTE 2022 ), valvular heart disease (mild to moderate , TTE 2022), hypertension, hyperlipidemia, hypothyroidism, left breast cancer status post surgery/radiation, SIADH, chronic hyponatremia, solitary kidney, chronic anemia (baseline hemoglobin of 11), past tobacco abuse. Last confinement November 2022 for pelvic fracture, UTI and hyponatremia. Fluid restriction of 1.2 L/day as per nephrology recommendations. Patient fell at home subsequently hitting a garbage can 4 days ago. No head trauma or LOC. Achy right side pain. Patient evaluated at [facility] ER. Right shoulder x-ray showed moderate right AC joint osteoarthritis. Findings suggestive of calcific tendinitis of the right rotator cuff. Patient discharged home. Dysuria symptoms noted 3 days ago. Outpatient UA ordered by PCP. Patient noted worsening pain on right rib area and back. Achy left knee pain and swelling Some chills at home. Denies SOB or cough or headache symptoms. Leukocytosis on outpatient blood work today. Patient directed by PCP to ER for evaluation. Ceftriaxone administered at the ER. Medical History as above Surgical History : Knee surgery, breast biopsy, lymph node biopsy, cataract surgery, section, BTL, mastectomy left Family History : Colon cancer, leukemia, heart disease, stroke Personal/Social history : Past tobacco abuse, occasional EtOH intake, retired from insurance work Allergies Allergy/AdvReac Type Severity Reaction Status Date / Time celecoxib Allergy Intermediate shaking Unverified 02/21/24 21:17 sensations erythromycin base Allergy Intermediate ABDOMINAL Verified 02/21/24 21:17 PAIN latex Allergy Intermediate dermatitis Unverified 02/21/24 21:17 Penicillins Allergy Intermediate SWELLING Verified 02/21/24 21:17 Sulfa (Sulfonamide Allergy Intermediate SWELLING Verified 02/21/24 21:17 Antibiotics) NARCOTICS Allergy Intermediate PAIN, Uncoded 02/21/24 21:17 SHAKES, VOMITING Home Medications Medication Instructions Recorded Confirmed Type aspirin 81 mg chewable tablet 81 mg PO HS 12/17/22 02/22/24 History atorvastatin 20 mg tablet (Lipitor) 20 mg PO HS 12/17/22 02/22/24 History calcium-magnesium 750 mg-465 mg 1 tab PO BID 12/17/22 02/22/24 History tablet cholecalciferol (vitamin D3) 25 50 mcg PO DAILY 12/17/22 02/22/24 History mcg (1,000 unit) capsule levothyroxine 50 mcg tablet 50 mcg PO DAILY 12/17/22 02/22/24 History (Synthroid) metoprolol succinate 100 mg 100 mg PO DAILY 12/17/22 02/22/24 History tablet,extended release 24 hr (Toprol XL) docusate sodium 100 mg capsule 100 mg PO BID #30 caps 12/21/22 02/22/24 Rx losartan 50 mg tablet 100 mg (2 x 50 mg) PO QAM #60 tabs 12/21/22 02/22/24 Rx polyethylene glycol 3350 17 gram 17 g PO DAILY PRN laxative effect 12/21/22 02/22/24 Rx oral powder packet (Miralax) #30 ea amlodipine 2.5 mg tablet 0 mg PO DAILY 02/22/24 02/22/24 History clindamycin HCl 300 mg capsule 300 mg PO DIRECTED PRN Other 02/22/24 02/22/24 History Past Med/Surg History Problem List (Updated 02/22/24 @ 05:20 by Wilfredo Rodrigues MD) Hypertensive crisis Urinary tract infection (Acute) Contusion of knee, left (Acute) Contusion of right chest wall (Acute) Acute hip pain (Acute) Shoulder tendonitis (Acute) Acute shoulder pain (Acute) Fall (Acute) Hyponatremia (Acute) Pelvic fracture (Acute) Conjunctivitis (Acute) Upper respiratory infection (Acute) HTN (hypertension) (Chronic) HTN (hypertension) (Chronic) Heart disease (Chronic) Cancer (Chronic) Cellulitis (Acute) Wound infection (Acute) Social History Smoking Status: Never smoker Hx Alcohol Use: Yes Alcohol type: wine Hx Substance Use: No Preferred Language: Burundian Communication Ability: Effective Math Professor Required: No Beliefs That Will Affect Care: None Current Living Situation: Alone Current Living Situation Comment: Lives in home by herself Feels Safe at Home: Yes Assistive Devices: Cane and Walker Review of Systems Review of Systems: As per HPI, all other systems reviewed and negative Physical Exam Physical Exam: GENERAL: uncomfortable, pleasant, looks younger than stated age, slightly hard of hearing, no respiratory distress SKIN: Pallor,, warm HEENT: Pale palpebral conjunctivae, no ptosis, dry buccal mucosa NECK : Supple, no tenderness CHEST : Decreased breath sounds, no tenderness HEART : Tachycardic, systolic murmur ABDOMEN: Some distention, nontender EXTREMITIES : Right shoulder tenderness, tender left knee/LLE swelling, no other conspicuous deformities noted NEUROLOGIC : Coherent, no facial asymmetry, slightly hard of hearing, no other gross focality Results & Data Results & Data Vital Signs (Past 12 Hours) Vital Signs Temp Pulse Pulse Resp BP BP Pulse Ox 02/21/24 22:11 106 H 18 199/93 H 96 02/21/24 21:31 108 H 18 182/84 H 97 02/21/24 20:32 110 H 18 168/91 H 92 02/21/24 19:48 114 H 23 96 02/21/24 19:36 117 H 23 97 02/21/24 19:30 187/90 H 02/21/24 19:06 107 H 26 H 02/21/24 19:00 106 H 21 02/21/24 19:00 184/83 H 02/21/24 19:00 184/83 H 02/21/24 19:00 184/83 H 02/21/24 18:51 108 H 22 02/21/24 18:38 181/86 H 02/21/24 18:33 100 H 23 99 02/21/24 18:29 101 H 02/21/24 18:24 184/93 H 02/21/24 14:40 36.6 C 90 18 149/75 H 96 O2 Del Method 02/21/24 22:11 Room Air 02/21/24 21:31 Room Air 02/21/24 20:32 Room Air 02/21/24 19:48 02/21/24 19:36 02/21/24 19:30 02/21/24 19:06 02/21/24 19:00 02/21/24 19:00 02/21/24 19:00 02/21/24 19:00 02/21/24 18:51 02/21/24 18:38 02/21/24 18:33 02/21/24 18:29 02/21/24 18:24 02/21/24 14:40 Laboratory Results Laboratory Results WBC 19.36 K/ul (4.8-10.8) H 02/21/24 16:00 RBC 3.64 M/uL (4.20-5.40) L 02/21/24 16:00 Hgb 11.3 g/dl (12.0-16.0) L 02/21/24 16:00 Hct 35.1 % (37.0-47.0) L 02/21/24 16:00 MCV 96.4 fL (80.0-100.0) 02/21/24 16:00 MCH 31.0 pg (25.0-34.0) 02/21/24 16:00 MCHC 32.2 g/dL (32.0-36.0) 02/21/24 16:00 RDW Std Deviation 40.4 fL (36.4-46.3) 02/21/24 16:00 RDW Coeff of Gayle 11.5 % (11.5-14.5) 02/21/24 16:00 Plt Count 427 K/uL (130-400) H 02/21/24 16:00 MPV 9.3 fL (9.4-12.4) L 02/21/24 16:00 Immature Gran % (Auto) 0.9 % 02/21/24 16:00 Neut % (Auto) 87.9 % 02/21/24 16:00 Lymph % (Auto) 4.9 % 02/21/24 16:00 [place] % (Auto) 6.0 % 02/21/24 16:00 Eos % (Auto) 0.1 % 02/21/24 16:00 Baso % (Auto) 0.2 % 02/21/24 16:00 Neut # (Auto) 17.03 K/uL (1.40-6.50) H 02/21/24 16:00 Lymph # (Auto) 0.95 K/uL (1.20-3.40) L 02/21/24 16:00 Montgomery # (Auto) 1.17 K/uL (0.11-0.59) H 02/21/24 16:00 Eos # (Auto) 0.01 K/uL (0.00-0.50) 02/21/24 16:00 Baso # (Auto) 0.03 K/uL (0.00-0.20) 02/21/24 16:00 Immature Gran # (Auto) 0.17 K/uL (0.01-0.20) 02/21/24 16:00 PT 10.3 Seconds (9.0-12.0) 02/21/24 18:50 INR 0.9 (0.9-1.1) 02/21/24 18:50 APTT 31 Seconds (21-31) 02/21/24 18:50 PTT Ratio 1.2 02/21/24 18:50 Sodium 127 mmol/L (136-145) L 02/21/24 16:00 Potassium 3.8 mmol/L (3.5-5.1) 02/21/24 16:00 Chloride 92 mmol/L (98-107) L 02/21/24 16:00 Carbon Dioxide 23 mmol/L (21-32) 02/21/24 16:00 Anion Gap 12 (3-11) H 02/21/24 16:00 BUN 23 mg/dl (6-23) 02/21/24 16:00 Creatinine 1.20 mg/dl (0.6-1.2) 02/21/24 16:00 Est Cr Clr Drug Dosing Not Reportable 02/21/24 16:00 Est GFR ( Amer) 47.4 ml/min 02/21/24 16:00 Est GFR (Non-Af Amer) 40.9 ml/min 02/21/24 16:00 BUN/Creatinine Ratio 19.2 (10-20) 02/21/24 16:00 Glucose 262 mg/dl (70-99(Fasting)) H 02/21/24 16:00 Osmolality 281 mOsm/kg (280-300) 02/21/24 18:52 Calcium 9.4 mg/dl (8.6-10.3) 02/21/24 16:00 Total Bilirubin 0.7 mg/dl (0.2-1.0) 02/21/24 16:00 AST 28 U/L (13-39) 02/21/24 16:00 ALT 17 U/L (7-52) 02/21/24 16:00 Alkaline Phosphatase 131 U/L (34-104) H 02/21/24 16:00 Troponin I High Sens 15.3 pg/ml (0-14) H 02/21/24 18:50 Total Protein 8.1 gm/dl (6.0-8.3) 02/21/24 16:00 Albumin 3.5 gm/dl (3.4-5.0) 02/21/24 16:00 Globulin 4.6 gm/dl (2.5-4.0) H 02/21/24 16:00 Albumin/Globulin Ratio 0.8 (0.9-2) L 02/21/24 16:00 Urine Color Yellow 02/21/24 20:42 Urine Appearance Cloudy (Clear) A 02/21/24 20:42 Urine pH 5.5 (4.5-7.5) 02/21/24 20:42 Ur Specific [place] 1.026 (1.000-1.030) 02/21/24 20:42 Urine Protein 2+ (Negative) H 02/21/24 20:42 Urine Glucose (UA) Negative (Negative) 02/21/24 20:42 Urine Ketones Trace (Negative) H 02/21/24 20:42 Urine Blood Negative (Negative) 02/21/24 20:42 Urine Nitrite Positive (Negative) A 02/21/24 20:42 Urine Bilirubin Negative (Negative) 02/21/24 20:42 Urine Urobilinogen Negative (Negative) 02/21/24 20:42 Ur Leukocyte Esterase 1+ (Negative) H 02/21/24 20:42 Urine WBC (Auto) 11-20 /hpf (0-5) H 02/21/24 20:42 Urine RBC (Auto) 0-2 /hpf (0-2) 02/21/24 20:42 U Hyaline Cast (Auto) 0-2 /lpf (0-2) 02/21/24 20:42 U Epithel Cells (Auto) 3-5 /hpf (0-2) H 02/21/24 20:42 Urine Bacteria (Auto) 4+ (None Seen) H 02/21/24 20:42 Urine Osmolality 575 mOsm/kg (500-800) 02/21/24 Unknown Ur Random Sodium 20 mmol/L 02/21/24 Unknown Impressions Ribs w/Chest X-Ray 02/21/24 14:51 XR ribs BI min 4V w [id number] CLINICAL HISTORY: Fall. COMPARISON: Chest CT July 10, 2016. Chest radiograph right rib series February 17, 2024. FINDINGS: There is no pneumothorax or pleural effusion. No airspace opacities are present. Cardiomediastinal silhouette is unremarkable. No acute rib fractures are identified. Subtle interstitial thickening is likely chronic. IMPRESSION: No pneumothorax. No acute rib fractures identified. ACT 112: Negative or not required by law. Electronically signed by: Joseph Peña M.D. 02/21/2024 5:03 PM Foot X-Ray 02/21/24 18:07 LEFT FOOT 3 VIEWS CLINICAL HISTORY: Fall. Left foot injury. FINDINGS: 3 views of the left foot are compared to study dated 12/17/2022. The oblique view is significantly degraded by motion artifact. The skeletal structures are osteopenic. No fracture is seen. There is mild hallux valgus with moderate osteoarthritic change at the first metatarsophalangeal joint. Milder arthritic change is seen throughout the remainder of the foot. Degenerative spurring is noted along the dorsal aspect of the tarsal bones. There is a tiny plantar calcaneal enthesophyte. The overlying soft tissues are normal as visualized. IMPRESSION: No acute bony abnormality is identified. Electronically signed by: Yobani Baez M.D. 02/21/2024 6:26 PM Knee X-Ray 02/21/24 18:07 LEFT KNEE 2 VIEWS; LEFT TIBIA AND FIBULA 2 VIEWS CLINICAL HISTORY: Fall. Left leg injury/pain. FINDINGS: AP and crosstable lateral views of the left knee with AP and lateral views of the left tibia and fibula are obtained. No prior studies are available for comparison at the time of dictation. The skeletal structures are osteopenic. No fracture is seen at the knee joint. There is no radiographic evidence of left tibial or fibular fracture. A left knee arthroplasty is in near anatomic alignment. There has been undersurface remodeling of the patella. No periprosthetic lucency is identified. There is a small knee joint effusion. Mild soft tissue swelling is seen throughout the left lower extremity. There is atherosclerotic calcification of the popliteal artery. A plantar heel spur is noted. IMPRESSION: 1. No acute fracture seen at the knee joint. 2. Soft tissue swelling with no radiographic evidence of left tibial or fibular fracture. 3. Small knee joint effusion. Electronically signed by: Yobani Baez M.D. 02/21/2024 6:29 PM Tibia/Fibula X-Ray 02/21/24 18:07 LEFT KNEE 2 VIEWS; LEFT TIBIA AND FIBULA 2 VIEWS CLINICAL HISTORY: Fall. Left leg injury/pain. FINDINGS: AP and crosstable lateral views of the left knee with AP and lateral views of the left tibia and fibula are obtained. No prior studies are available for comparison at the time of dictation. The skeletal structures are osteopenic. No fracture is seen at the knee joint. There is no radiographic evidence of left tibial or fibular fracture. A left knee arthroplasty is in near anatomic alignment. There has been undersurface remodeling of the patella. No periprosthetic lucency is identified. There is a small knee joint effusion. Mild soft tissue swelling is seen throughout the left lower extremity. There is atherosclerotic calcification of the popliteal artery. A plantar heel spur is noted. IMPRESSION: 1. No acute fracture seen at the knee joint. 2. Soft tissue swelling with no radiographic evidence of left tibial or fibular fracture. 3. Small knee joint effusion. Electronically signed by: Yobani Baez M.D. 02/21/2024 6:29 PM Venous Doppler Study 02/21/24 18:07 Exam(s): US VENOUS LEFT LOWER EXTREMITY EXAM: US Duplex Left Lower Extremity Veins CLINICAL HISTORY: Reason for exam: fall. TECHNIQUE: Real-time duplex ultrasound scan of the left lower extremity veins integrating B-mode two-dimensional vascular structure, Doppler spectral analysis, color flow Doppler imaging and compression. COMPARISON: No relevant prior studies available. FINDINGS: Deep veins: Unremarkable. No DVT in the visualized common femoral, femoral, proximal deep femoral or popliteal veins. The veins demonstrate normal color flow, are normally compressible, with normal phasic flow and/or augmentation response. Superficial veins: Unremarkable. No thrombus in the visualized great saphenous vein. Soft tissues: Subcutaneous tissue edema seen in the left popliteal fossa. No popliteal cyst. IMPRESSION: Normal left lower extremity duplex venous ultrasound. Electronically signed by: Jackson Guido MD 02/21/24 20:[address] chest: No acute findings in the chest. CT abdomen pelvis: 1. Mild fecal retention, correlate for constipation. 2. Hepatic steatosis. 3. Diverticulosis, without acute diverticulitis. No small bowel obstruction. No free intraperitoneal air. 4. Severe atrophy LEFT kidney. Left lower extremity CT: 1. There is metallic artifact from a left total knee arthroplasty. There is a moderate sized knee joint effusion measuring 1.4 cm AP by 5.7 cm transverse with slight rim enhancement. In the setting of infection, septic joint should be considered. 2. Mild skin thickening and subcutaneous edema over the lower left leg and ankle suggesting cellulitis. No subcutaneous emphysema, or abscess, or foreign body is seen. Diagnostic Findings EKG as per my interpretation : Rate 95, NSR, LAD, LSB, LVH, incomplete RBBB, septal infarct, T wave inversions lateral leads
[2024-02-21] MEDS ORDERED: ACETAMINOPHEN 325 MG TAB PO PRN (23:05)
[2024-02-21] MEDS ORDERED: PROMETHAZINE 6.25 MG/50.25 ML BAG IV PRN (23:05)
[2024-02-21] MEDS: OPTIRAY 320 100ml IV ONE (23:51)
[2024-02-22 00:06] LABS: Magnesium 1.4 mg/dl (1.7-2.4)
[2024-02-22 00:14] LABS: Troponin I High Sensitivity 22.5 pg/ml (0-14)
[2024-02-22 00:23] LABS: Thyroid Stimulating Hormone 1.34 uIu/ml (0.300-4.500)
--- OUTSIDE RECORDS SUMMARY | 2024-02-22 00:23 | External Medical Summary ---
Author Name Unknown Address Unknown Organization [id number]:[facility] - [address] [place] [address] Laboratory Report Ordering Provider Test Date Status BEATRICE VARMA 02/18/2024 14:06:39 Final Normal: <30 mg/g creatinine< br/>High: 30-300 mg/g creatinine
Very High: >300 mg/g creatinine
Nephrotic: >2200 mg/g creatinine Observation Date Value Abnormality Reference (Units ) Status Albumin, Urine 02/18/2024 14:06:39 5.00 (mg/dL) Final Creatinine, Urine 02/18/2024 14:06:39 148 (mg/dL) Final Albumin/Creatinine [Mass Ratio] in Urine 02/18/2024 14:06:39 34 Above high normal <30 (mg/g Creat) Final Performing Location [facility] - [address] [place] [address]
--- OUTSIDE RECORDS SUMMARY | 2024-02-22 00:23 | External Medical Summary ---
Author Name Unknown Address Unknown Organization [id number]:[facility] - [address] [place] [address] Laboratory Report Ordering Provider Test Date Status BEATRICE VARMA 02/18/2024 14:06:39 Final Observation Date Value Abnormality Reference (Units ) Status Phosphate 02/18/2024 14:06:39 3.4 2.5-4.8 (m g/dL) Final Performing Location [facility] - [address] [place] [address]
--- OUTSIDE RECORDS SUMMARY | 2024-02-22 00:23 | External Medical Summary ---
Author Name Unknown Address Unknown Organization [id number]:[facility] [place] [address] [facility] [address] Laboratory Report Ordering Provider Test Date Status CALLIEGINOADRIANNE 02/18/2024 14:06:39 Final <10,000 colonies/ml mixed no rmal geovanna Observation Date Value Abnormality Reference (Units ) Status Bacteria identified in Specimen by Culture 02/18/2024 14:06:39 [id number]^ESCHE RICHIA COLI Abnormal Final 10,000 to 100,000 colonies/m L Escherichia coli Performing Location [facility] [place] [address] [facility] [address] Ordering Provider Test Date Status CALLIEROB 02/18/2024 14:06:39 Final Observation Date Value Abnormality Reference (Units ) Status Ampicillin 02/18/2024 14:06:39 <=2 Susceptible Final Cefazolin 02/18/2024 14:06:39 <=4 Susceptible Final Cefepime susceptibility 02/18/2024 14:06:39 <=1 Susceptible Final Ceftriaxone suceptibility 02/18/2024 14:06:39 <=1 Susceptible Final Ciprofloxacin 02/18/2024 14:06:39 <=0.25 Susceptible Final Due to serious side effects, the FDA has advised against using Ciprofloxacin to treat uncomplicated UTIs and respiratory tract infections unless there are no alternative treatment options. Gentamicin susceptibility 02/18/2024 14:06:39 <=1 Susc eptible Final Nitrofurantoin susceptibility 02/18/2024 14:06:39 <=16 Susceptible Final Piperacillin + Tazobactamsusceptibility 02/18/2024 14:06:39 <=4 Susceptible Final TMP-SMZ susceptibility 02/18/2024 14:06:39 <=20 Suscept ible Final Test: Culture, Urine, Quanti tative
Specimen Source: Urine, Clean Catch
Specimen Type: Urine
Specimen Date: 02/18/2024 1406
Result Date: 02/20/2024 1027
Result Status: Final result
Abnormal: Yes
Resulting Lab: [facility]
[address]
[place] [address]

CULTURE

10,000 to 100,000 colonies/mL Escherichia coli (Abnormal)

<10,000 colonies/ml mixed normal geovanna

SUSCEPTIBILITY

Escherichia coli
METHOD MICROBROTH
DILUTIONS

AMPICILLIN <=2 Susceptible
CEFAZOLIN <=4 Susceptible
CEFEPIME <=1 Susceptible
CEFTRIAXONE <=1 Susceptible
CIPROFLOXACIN <=0.25 Susceptible
[1]
GENTAMICIN <=1 Susceptible
NITROFURANTOIN <=16 Susceptible
PIPERACILLIN TAZOBACTAM <=4 Susceptible
TRIMETH/SULFAMETHOXAZOLE <=20 Susceptible

[1] Due to serious side effects, the FDA has advised against using
Ciprofloxacin to treat uncomplicated UTIs and respiratory tract infections
unless there are no alternative treatment options.

null Performing Location [facility] [place] [address] [facility] [address]
--- OUTSIDE RECORDS SUMMARY | 2024-02-22 00:23 | External Medical Summary ---
Author Name Unknown Address Unknown Organization [id number]:[facility] [place] - [address] [place] [address] Laboratory Report Ordering Provider Test Date Status BEATRICE VARMA 02/18/2024 14:06:39 Final Observation Date Value Abnormality Reference (Units ) Status TSH 02/18/2024 14:06:39 3.11 0.27-4.20 (uIU/mL) Final Performing Location [facility] - [address] [place] [address]
--- OUTSIDE RECORDS SUMMARY | 2024-02-22 00:23 | External Medical Summary ---
Author Name Unknown Address Unknown Organization [id number]:[facility] [place] [address] [facility] [address] Laboratory Report Ordering Provider Test Date Status BEATRICE VARMA 02/18/2024 14:06:39 Final Observation Date Value Abnormality Reference (Units ) Status HbA1C 02/18/2024 14:06:39 6.3 Above high normal 4. 0-5.6 (%) Final The use of HbA1c to monitor glycemic status is based on normal hemoglobin and HbA composition. This test should not be used in patients with abnormal hemoglobin that affects the half life of the red blood cell or the in vivo glycation rates. Glucose, estimated average 02/18/2024 14:06:39 134 Above high normal <126 (mg/dL) Fercho vaughan Performing Location [facility] [place] - [address] [facility] [address]
--- OUTSIDE RECORDS SUMMARY | 2024-02-22 00:23 | External Medical Summary ---
Author Name Unknown Address Unknown Organization [id number]:[facility] [address] - [address] [place] [address] Laboratory Report Ordering Provider Test Date Status ROB LEDESMA 02/18/2024 14:06:39 Final Observation Date Value Abnormality Reference (Units ) Status Color of Urine by Auto 02/18/2024 14:06:39 Yellow Light Yellow, Yellow, Dark Yellow Final Clarity, Urine 02/18/2024 14:06:39 Clear Clear Final Glucose [Mass/volume] in Urine by Automated test strip 02/18/2024 14:06:39 Negative Negative (mg/dL) Final Bilirubin.total [Presence] in Urine by Automated test strip 02/18/2024 14:06:39 Negative Negative Final Ketones [Mass/volume] in Urine by Automated test strip 02/18/2024 14:06:39 Negative Negative (mg/dL) Final Specific gravity, Urine 02/18/2024 14:06:39 1.025 1.003-1.030 Final Hemoglobin [Presence] in Urine by Automated test strip 02/18/2024 14:06:39 Negative Negative Final pH, Urine 02/18/2024 14:06:39 5.5 5.0-7.5 (Units) Final Protein [Mass/volume] in Urine by Automated test strip 02/18/2024 14:06:39 30 Abnormal Negative (mg/dL) Final Urobilinogen [Mass/volume] in Urine by Automated test strip 02/18/2024 14:06:39 0.2 0.2, 1.0 (mg/dL) Final Nitrite [Presence] in Urine by Automated test strip 02/18/2024 14:06:39 Negative Negative Final Leukocyte esterase [Presence] in Urine by Automated test strip 02/18/2024 14:06:39 Small Abnormal Negative Final RBC, Urine 02/18/2024 14:06:39 0-2 0-2 (/HPF) Final WBC, Urine 02/18/2024 14:06:39 50+ Abnormal 0-2 (/HPF) Final Bacteria [#/area] in Urine sediment by Microscopy high power field 02/18/2024 14:06:39 51-100 Abnormal 0-25 (/HPF) Final Transitional cells [#/area] in Urine sediment by Microscopy high power field 02/18/2024 14:06:39 1-4 Abnormal None (/HPF) Final Leukocyte clumps [#/area] in Urine sediment by Microscopy high power field 02/18/2024 14:06:39 Present Abnormal None (/HPF) Final Performing Location [facility] [address] - [address] [facility] [address]
--- OUTSIDE RECORDS SUMMARY | 2024-02-22 00:23 | External Medical Summary | Summary of Care ---
Author Name Unknown Organization [facility] Address [address] [place] [address] Phone [phone] Care Team Providers Care Application Developer Name Role Phone rFanco Leal Primary Care Provider Reason for Visit * Reason Comments Outpatient Testing Encounter Details Date Type Department Care Team (Late st Contact Info) Description 02/18/2024 2:10 PM EDT Laboratory Laboratory, [facility] [address] [place] [address] [facility] [address] [place] [address] Hypertensive kidney disease with stage 3a chronic kidney disease (HCC); SIADH (syndrome of inappropriate ADH production) ([facility]); Mixed hyperlipidemia; Benign hypertension with stage 3b chronic kidney disease (HCC); Acquired hypothyroidism; Dysuria Allergies Active Allergy Reactions Criticality Noted Date Comments Bactrim Nausea/vomiting Low 08/06/2013 shakiness Celecoxib Other (Please comment) 06/03/2010 " makes me jittery" Propoxyphene Hcl Abdominal pain 06/03/2010 Hydromorphone Hcl Nausea/vomiting 01/22/2012 Erythromycin 10/18/2011 Abdominal pain Erythromycin Estolate Abdominal pain 06/03/2010 Latex 10/18/2011 rash Penicillins Hives 06/03/2010 Oxycodone-Acetaminophen Abdominal pain 06/03/19 11 Silver Sulfadiazine Other (Please comment) 03/08/2016 Burning sensation Sulfa Antibiotics 12/21/2022 documented as of this encounter (statuses as of 02/18/2024) Medications Medication Sig Dispensed Refills Start Date End Date Status CALCIUM-MAGNESIUM 500-250 MG PO TABS Take by mouth. Ac tive VITAMIN D 2000 UNIT PO TABS 1 tab with evening meal Active CLINDAMYCIN HCL 150 MG PO CAPSIndications:S/P total knee replacement TAKE FOUR CAPSULES ONE HOUR PRIOR TO DENTAL PROCEDURE 4 Cap 6 10/28/2012 Active Aspirin 81 MG Oral Tablet Delayed Release Take 1 Tablet by mouth in the morning. Active Multiple Vitamins-Minerals (MULTIVITAMIN ADULT) TABS Take 2 Tabs by mouth daily with lunch. Active Melatonin 3 MG Oral Tablet Take 1 Tablet by mouth at bedtime as needed for Sleep. Active Lidocaine 4 % External Patch (Aspercreme) Place 1 Patch topically on the skin daily. To right knee 30 Patch 12/28/2022 Active Calcium Carbonate 600 MG Oral Tablet Take 1 Tablet by mouth 2 times a day with morning and evening meals. Active Metoprolol Succinate ER 100 MG Oral Tablet Extended Release 24 Hour (toPROL XL)Indications:HTN, goal below 140/90 Take 1 Tablet by mouth at bedtime. 90 Tablet 3 05/17/2023 Active Levothyroxine Sodium 50 MCG Oral Tablet (Levoxyl)Indications :Hypothyroidism due to acquired atrophy of thyroid Take 1 Tablet by mouth daily first thing in the morning. 90 Tablet 3 09/03/2023 Active Atorvastatin Calcium 20 MG Oral Tablet (Lipitor)Indications :Dyslipidemia, goal LDL below 130 TAKE ONE TABLET AT BEDTIME 90 Tablet 3 09/06/2023 Active amLODIPine Besylate 2.5 MG Oral Tablet (Norvasc)Indications :HTN, goal below 140/90 TAKE 1 TABLET BY MOUTH IN THE MORNING 90 Tablet 2 10/30/2023 Active Losartan Potassium 100 MG Oral Tablet (Cozaar)Indications: HTN, goal below 140/90 TAKE 1 TABLET BY MOUTH IN THE MORNING 90 Tablet 2 10/30/2023 Active Gabapentin 100 MG Oral Capsule (Neurontin)Indicatio ns:Acute right-sided thoracic back pain Take 1 Capsule by mouth at bedtime. 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 2017-declines colonoscopy for now. 05/07/13 [facility] Labs-gluc 110, K 3.3 otherwise BMP WNL Lipids TC 164, LDL 102, HDL 47, TG 97 Outside lab : 12/07 TSH 1.64, 04/08 CMP WNLTC 184, LDL 105, HDL 38, TG 200 03/08 mammo WNl 06/08 pap WNL--stop. 09/05 colonoscopy-2 adenomatous polyps 0.5cm HTN, goal below 140/90 04/22/2013 Vitamin D deficiency 04/22/2013 Hypothyroidism 04/14/2013 Neuropathy 04/14/2013 Right knee DJD 02/17/2013 S/P total knee replacement 10/31/2011 documented as of this encounter (statuses as of 02/18/2024) Resolved Problems Problem Noted Date Diagnosed Date Resolved Date Chronic kidney disease, stage 3b 11/09/2020 12/28/2022 Overview: Per CKD protocol Benign hypertension with sta ge 3b chronic kidney disease 10/05/2020 02/06/2024 Overview: Per CKD protocol Current GFR supports N18.3a Benign hypertension with CKD (chronic kidney disease) stage III 08/19/2018 10/07/2020 Overview: Per CKD protocol Kidney disease, chronic, sta ge III (GFR 30-59 ml/min) 10/02/2016 01/09/2019 Overview: Per CKD protocol #1 SOHAN (acute kidney injury) 08/14/2013 Overview: 08/10 Cr 1.2 08/08 Cr inc from 1.1 .>1.9 > 1.7. Renal US--absent left kidney Allergic rhinitis 04/22/2013 12/15/2019 Overview: Acute. Calcaneal spur 04/22/2013 12/15/2019 Overview: Acute. documented as of this encounter (statuses as of 02/18/2024) Immunizations Name Administration Dates Next Due COVID-19 mRNA, LNP-s, No Pre serve, 2-Dose Series (MOVE Guides) 06/17/2021,08/09/2020,07/12/2020 COVID-19, LNP-s, No Preserve , Ashwin-sucrose, Ages 12+ (Pfizer) 12/06/2021 Covid-19, Mrna, Lnp-s, Pf, B ivalent, 30 Mcg, IM, 12 yrs and above (MOVE Guides) 04/18/2022 Pneumococcal Conjugate Vacc, 13 Valent (Prevnar) 03/08/2016 Pneumococcal Polysaccharide PPV23 (Pneumovax) 2002 Seasonal Influenza, PF, 6 M & above, IM , (FluLaval or Fluzone) 02/25/2019,03/05/2018 Seasonal Influenza, Quad, Na mary (Flumist) 02/25/2020 Seasonal Influenza, Quadriva lent Hd, 65+ Yrs 03/05/2022 Seasonal Influenza, Quadriva lent, No Preserve, IM 03/02/2017,03/08/2016,02/25/2015 Seasonal Influenza, Trivalen t, (IIV3), with Preserv, (Fluzone) 03/11/2014,02/25/2013,02/28/2012,01/26,03/22/2010 TDAP (age 10 and older)(Boostrix) 10/20/2014, Varicella Zoster Vaccine (Adult) 01/09/2012 Zoster Vaccine Recombinant (Shingrix) 11/19/2019 ,07/24/2019 documented as of this encounter Social History Tobacco Use Types Packs/Day Years Used Date Smoking Tobacco: Former Smokeless Tobacco: Never Comments:minimal history Alcohol Use Standard Drinks/Week Comments Yes 0 (1 standard drink = 0.6 oz pur e alcohol) holidays PHQ-2 Answer Date Recorded PHQ Adult Total Score 0 10/03/2021 Hunger Vital Sign Answer Date Recorded Within the past 12 months, y ou worried that your food would run out before you got the money to buy more. Never true 01/04/20 23 Within the past 12 months, t he food you bought just didn't last and you didn't have money to get more. Never true 01/03/2023 Childcare Answer Date Recorded Do you feel overwhelmed with taking care of a child, family member or friend? No 01/03/2023 Does your family need help f inding childcare? (Household - for ages 0-17 years) Not on file 01/03/2023 Clothing Answer Date Recorded Have you been unable to get clothing when it was really needed? No 01/03/2023 Is your family able to get c lothes or diapers when needed? (Household - for ages 0-17 years) Not on file 01/03/2023 Personal Safety Answer Date Recorded Do you feel unsafe or have concerns for your saf ety? No 01/03/2023 Do you have concerns for you r family's safety? (Household - for ages 0-17 years) Not on file 01/03/2023 Utilities Answer Date Recorded Do you have trouble paying y our heating, water, or electric bill? (Adult - for ages 18 years and over) Not on file 01/07/2024 Is your family able to pay t he heat, water, or electric bill? (Household - for ages 0-17 years) Not on file 01/07/2024 Does your family have access to good internet? (Household - for ages 0-17 years) Not on file 01/07/2024 Employment Status Answer Date Recorded Are you unemployed or without regular income? No 01/03/2023 Does the household have a re gular source of income? (Household - for ages 0-17 years) Not on file 01/03/2023 Social Connections Answer Date Recorded How often do you feel lonely or isolated from those around you? (Adult - for ages 18 years and over) Not on file 01/07/2024 Financial Resource Strain Answer Date R ecorded Do you have any trouble payi ng for your medications, or do you think you might in the future? No 01/03/2023 Does your family have troubl e paying for medicine? (Household - for ages 0-17 years) Not on file 01/03/2023 Transportation Needs Answer Date Record ed READ ONLY Do you have troubl e getting a ride to medical visits or work? Never True 01/03/2023 Does your family have a hard time getting a ride to doctors visits? (Household - for ages 0-17 years) Not on file 01/03/2023 Has lack of transportation k ept you from medical appointments, meetings, work, or from getting things needed for daily living? Check all that apply. (Adult - for ages 18 years and over) Not on file 01/03/2023 Do you (or your family) have trouble finding or paying for a ride (transportation)? (Household - for ages 0-17 years) Not on file 01/03/2023 Housing Stability Answer Date Recorded Do you currently live in a s helter or have no steady place to sleep at night? No 01/03/2023 READ ONLY Do you think you a re at risk of becoming homeless? No 01/03/2023 Does your family worry about paying for your home or becoming homeless? (Household - for ages 0-17 years) Not on file 0 01/03/2023 Are you homeless or worried that you might be in the future? (Adult - for ages 18 years and over) Not on file Are you (or your family) annel eless or worried that you might be in the future? (Household - for ages 0-17 years) Not on file Food Insecurity Answer Date Recorded Do you need food for this week? No 01/03/2023 Are you able to get enough f ood for your family? (Household - for ages 0-17 years) Not on file 01/03/2023 Does your family need food t his week? (Household - for ages 0-17 years) Not on file 01/03/2023 Do you always have enough fo od for your family? (Household - for ages 0-17 years) Not on file 01/03/2023 Sex and Gender Information Value Date Recorded Sex Assigned at Female 08/19/2018 11:30 AM EDT Gender Identity Female 08/19/2018 11:30 AM EDT Sexual Orientation Straight 08/19/2018 11 :30 AM EDT Job Start Date Occupation Industry Not on file Not on file Not on file documented as of this encounter Plan of Treatment Upcoming Encounters Date Type Department Care Team (Late st Contact Info) Description 03/19/2024 1:30 PM EDT Imaging Radiology [address] [place] [address] 08/11/2024 2:20 PM EDT Office Visit [place]rology, [facility] [place] [address] [facility] [place] [address] Noah Matos MD [address] [facility] [place] [address] 08/18/2024 3:00 PM EDT Office Visit Family Practice [facility] [address] [place] [address] Franco Leal DO [address] [place] [address] Pending Results Name Type Priority Associated Diagnoses Date /Time COMPREHENSIVE METABOLIC PANEL Lab Routine SIADH (syndrome of inappropriate ADH production) ([facility]) Mixed hyperlipidemia 02/18/2024 2:06 PM EDT HEMOGLOBIN A1C Lab Routine Benign hypertension with stage 3b chronic kidney disease (HCC) 02/18/2024 2:06 PM EDT ALBUMIN / CREATININE RATIO, URINE Lab Routine SIADH (syndrome of inappropriate ADH production) ([facility]) 02/18/2024 2:06 PM EDT LIPID PANEL WITH DIRECT LDL IF TG IS HIGH Lab Routine Mixed hyperlipidemia 02/18/2024 2:06 PM EDT TSH WITH FREE T4 IF INDICATED Lab Routine Acquired hypothyroidism 02/18/2024 2:06 PM EDT PHOSPHORUS Lab Routine Benign hypertension with stage 3b chronic kidney disease (HCC) 02/18/2024 2:06 PM EDT URINALYSIS WITH MICROSCOPIC EXAM Lab Routine Dysuria 02/18/2024 2:06 PM EDT CULTURE, URINE, QUANTITATIVE Lab Routine Dysuria 02/18/2024 2:06 PM EDT Health Maintenance Due Date Last Done Comments Adult Wellness Visit 10/31/2018 10/31/2017 DXA Scan 10/06/2020 10/06/2013, 10/06/2013 Depression Screening 10/03/2022 10/03/2021 COVID-19 Vaccine ( season) 2024 04/18/2022, 04/18/2022, 12/06/2021, Additional history exists Influenza Vaccine (FLU shot) (#1) 2024 03/05/2022, 02/25/2020, 03/04/2019, Additional history exists Albumin/Creatinine Ratio 07/24/2024 024, 10/31/2017, 11/20/2016, Additional history exists CKD HGB USE SMARTSET 37401 07/24/202402/17, 02/18/2024, 07/24/2023, Additional history exists CKD PHOS USE SMARTSET 77782 07/24/202406/29, 01/03/2023, 10/03/2021, Additional history exists TSH 07/24/2024 07/24/2023, 05/0 01/2022, 12/29/2019, Additional history exists DTap/Tdap Vaccines (4 - Td or Tdap) 10/20/2024 10/20/2014, 10/18/2014, 05/14/2013 Colonoscopy Discontinued 09/08/2010 Pneumococcal Vaccine: 65+ Years Completed 03/08/2016, 2002, 05/28/2002 Zoster Vaccines Completed 11/19/2019, 06/29, 01/09/2012 HPV (Gardasil) Vaccine Aged Out No lo nger eligible based on patient's age to complete this topic Hepatitis B Vaccine Aged Out No longe r eligible based on patient's age to complete this topic MENINGOCOCCAL (MENACTRA/MENVEO) Aged Out No longer eligible based on patient's age to complete this topic documented as of this encounter Medical Devices Implanted Type Area Director Of Retention Device Identifier Shelf Expiration Date Model / Serial / Lot Cement Bone Full Mix Surg Simp - [id number] Implanted:Qty: 1 on 10/31/2011 at [place] [facility] [place] Knee [place] : [employer] 12/30/2012 [id number] / / [id number] Cement Bone 1/2 Mix Surg Simpl - [id number] Implanted:Qty: 1 on 10/31/2011 at [place] [facility] [place]: Knee [employer] : ORTH[employer] 09/29/2013 [id number] / / [id number] Component Femoral Size 3 - [id number] Implanted:Qty: 1 on 10/31/2011 at [place] [facility] [place]: Knee [employer] : ORTH[employer] 08/30/2016 [id number] / [id number] / [id number] Triathlon X3 Tibial Bearing Insert- Ps Size 3, 9mm Thickness Implanted:Qty: 1 on 10/31/2011 at [place] [facility] [place]: Knee [employer] : ORTH[employer] 01/25/2015 [id number] / / [id number] Triathlon Primary Tibial Baseplate Size 3 Implanted:Qty: 1 on 10/31/2011 at [place] [facility] [place]: Knee [employer]O : ORTH[employer] 08/25/2016 [id number] / / [id number] Triathlon X3 Symmetric Patella Size S29mm, 8mm Thickness Implanted:Qty: 1 on 10/31/2011 at [place] [facility] [place]: Knee [employer]O : ORTH[employer] 09/24/2016 [id number] / / [id number] documented as of this encounter Procedures Procedure Name Priority Date/Time Associated Diagnosis Comments DIFFERENTIAL, AUTOMATED Routine 02/18/2024 2:06 PM EDT Hypertensive kidney disease with stage 3a chronic kidney disease (HCC) CBC Routine 02/18/2024 2:06 PM EDT Hypertensive kidney disease with stage 3a chronic kidney disease (HCC) CBC Routine 02/18/2024 2:06 PM EDT Hypertensive kidney disease with stage 3a chronic kidney disease (HCC) documented in this encounter Results * (ABNORMAL) DIFFERENTIAL, AUTOMATED (02/18/2024 2:06 PM EDT) WBC 13.64(H) 4.00 - 10.80 K/uL 02/18/2024 2:23 PM EDT [facility] Neutrophils % 83.9(H) 40.0 - 75.0 % 02/18/2024 2:23 PM EDT [facility] Lymphocytes % 7.0(L) 18.0 - 42.0 % 02/18/2024 2:23 PM EDT [facility] Monocytes % 8.9 1.0 - 11.0 % 02/18/2024 2:23 PM EDT [facility] Eosinophils % 0.1 0.0 - 6.0 % 02/18/2024 2:23 PM EDT [facility] Basophils % 0.1 0.0 - 2.0 % 02/18/2024 2:23 PM EDT [facility] Absolute Neutrophils 11.46(H) 1.80 - 7.70 K/uL 02/18/2024 2:23 PM EDT [facility] Absolute Lymphocytes 0.95(L) 1.00 - 4.80 K/ul 02/18/2024 2:23 PM EDT [facility] Absolute Monocytes 1.21(H) 0.00 - 1.10 K/uL 02/18/2024 2:23 PM EDT [facility] Absolute Eosinophils 0.01 0.00 - 0.70 K/uL 02/18/2024 2:23 PM EDT [facility] Absolute Basophils 0.01 0.00 - 0.20 K/uL 02/18/2024 2:23 PM EDT [facility] Blood Venous blood specimen / Unknown Venipuncture / Unknown 02/18/2024 2:06 PM EDT 02/18/2024 2:06 PM EDT Franco Leal DO LAB BLOOD ORDER [facility] [address] [facility] [place] [address] * (ABNORMAL) CBC (02/18/2024 2:06 PM EDT) [facility] Signature WBC 13.64(H) 4.00 - 10.80 K/uL 02/18/2024 2:23 PM EDT [facility] RBC 3.62 3.85 - 5.15 M/uL 02/18/2024 2:23 PM EDT [facility] HGB 11.7(L) 12.0 - 15.3 g/dL 02/18/2024 2:23 PM EDT [facility] HCT 35.3(L) 36.0 - 45.2 % 02/18/2024 2:23 PM EDT [facility] MCV 97.5 81.5 - 97.5 fL 02/18/2024 2:23 PM EDT [facility] MCH 32.3 27.0 - 34.0 pg 02/18/2024 2:23 PM EDT [facility] MCHC 33.1 32.0 - 36.0 g/dL 02/18/2024 2:23 PM EDT [facility] RDW 11.3 11.5 - 15.5 % 02/18/2024 2:23 PM EDT [facility] PLT 333 140 - 400 K/uL 02/18/2024 2:23 PM EDT [facility] MPV 9.6 6.6 - 11.1 fL 02/18/2024 2:23 PM EDT [facility] Blood Venous blood specimen / Unknown Venipuncture / Unknown 02/18/2024 2:06 PM EDT 02/18/2024 2:06 PM EDT Franco Leal DO LAB BLOOD ORDER [facility] [address] [place] [address] documented in this encounter Visit Diagnoses Diagnosis Hypertensive kidney disease with stage 3a chronic kidney disease (HCC) SIADH (syndrome of inappropriate ADH production) (HCC) Other disorders of neurohypophysis Mixed hyperlipidemia Benign hypertension with stage 3b chronic kidney disease (HCC) Acquired hypothyroidism Unspecified hypothyroidism Dysuria documented in this encounter Advance Directives * Full Code (Latest Code Status on File) Date Activated Date Inactivated Comments 10/31/2011 10:49 AM 11/03/2011 7:38 PM This order re flects the patients wishes and were consensually agreed upon. Healthcare Agents on File Name Relationship Healthcare Agent [facility] Communication Olya Ramirez Adult Child Health Care Repr esentative (appointed verbally by patient or by statute hierarchy) Care Teams Application Developer Relationship Specialty Start Date End Date Franco Leal DO [address] [place] [address] PCP - General Family Medicine 06/30/19 documented as of this encounter
--- OUTSIDE RECORDS SUMMARY | 2024-02-22 00:23 | External Medical Summary ---
Author Name Unknown Address Unknown Organization [id number] [address] [place] [id number] Laboratory Report Ordering Provider Test Date Status BEATRICE VARMA 02/18/2024 14:06:39 Final Observation Date Value Abnormality Reference (Units ) Status WBC, Total 02/18/2024 14:06:39 13.64 Above high normal 4 .00-10.80 (K/uL) Final RBC 02/18/2024 14:06:39 3.62 3.85-5.15 (M/uL) Final Hemoglobin 02/18/2024 14:06:39 11.7 Below low normal 12 .0-15.3 (g/dL) Final HCT 02/18/2024 14:06:39 35.3 Below low normal 36. 0-45.2 (%) Final MCV 02/18/2024 14:06:39 97.5 81.5-97.5 (fL) Final MCH 02/18/2024 14:06:39 32.3 27.0-34.0 (pg) Final MCHC 02/18/2024 14:06:39 33.1 32.0-36.0 (g/dL) Final RDW 02/18/2024 14:06:39 11.3 11.5-15.5 (%) Final Platelets 02/18/2024 14:06:39 333 140-400 (K /uL) Final MPV 02/18/2024 14:06:39 9.6 6.6-11.1 ( fL) Final Performing Location [facility] [place] [address]
--- OUTSIDE RECORDS SUMMARY | 2024-02-22 00:23 | External Medical Summary ---
Author Name Unknown Address Unknown Organization [id number] [address] [place] [address] Laboratory Report Ordering Provider Test Date Status BEATRICE VARMA 02/18/2024 14:06:39 Final Observation Date Value Abnormality Reference (Units ) Status SYNC LEUKOCYTES IN BLOOD BY AUTOMATED COUNT 02/18/2024 14:06:39 13.64 Above high normal 4.00-10.80 (K/uL) Final Segs 02/18/2024 14:06:39 83.9 Above high normal 40.0-75.0 (%) Final Lymphs % 02/18/2024 14:06:39 7.0 Below low normal 18.0-42.0 (%) Final Monos 02/18/2024 14:06:39 8.9 1.0-11.0 (%) Final Eosinophils 02/18/2024 14:06:39 0.1 0.0-6.0 (%) Final Basos 02/18/2024 14:06:39 0.1 0.0-2.0 (%) Final Absolute Segs 02/18/2024 14:06:39 11.46 Above high normal 1.80-7.70 (K/uL) Final Lymphs, absolute 02/18/2024 14:06:39 0.95 Below low normal 1.00-4.80 (K/ul) Final Monos, Abs 02/18/2024 14:06:39 1.21 Above high normal 0.00-1.10 (K/uL) Final Eos, Abs 02/18/2024 14:06:39 0.01 0.00-0.70 (K/uL) Final Basos, Abs 02/18/2024 14:06:39 0.01 0.00-0.20 (K/uL) Final Performing Location [facility] [place] [address]
--- OUTSIDE RECORDS SUMMARY | 2024-02-22 00:23 | External Medical Summary | Summary of Care ---
Author Name Unknown Organization [facility] Address [address] [place] [address] Phone [phone] Care Team Providers Care Dispatcher Radio Name Role Phone LealFrancokathy Primary Care Provider Reason for Referral * Evaluate & Treat - Unlimited Visits (Within 10 days (routine)) - Authorized Specialty Diagnoses / Procedures Referred By Yadiel ross Referred To Contact HOME CARE / Home Care Diagnoses Personal history of fall Acute right-sided thoracic back pain Right shoulder tendonitis Kaykay Lui CRNP [address] [place] [address] Referral ID Status Reason Start Date Expiration Date Visits Requested Visits Authorized [id number] Authorized Specialty Services Required 02/18/2024 999 999 Question Answer Referral Priority Within 10 days (routine) Where should this appointment be scheduled? Farhad Comments Documentation of Duja-in-Tagw Encounter Addendum Patient Name: Ania Jack I certify that this patient is under my care and that I, or a nurse practitioner or physician's health education assistant working with me, had a cdcx-xc-eysi encounter that meets the physician vbdo-ln-crfe encounter requirements with this patient on: 02/18/24 The encounter with the patient was in whole, or in part, for the following medical condition, which is the primary reason for home health care (List medical condition): Gait dysfunction I certify that, based on my findings, the following services are medically necessary home health services: Physical Therapy and OT To provide the following care/treatments: (All hospitalists not following the patient after discharge should complete this section): PT and OT for repeated falls at home, balance, and thoracic back pain after recent fall Primary Care Physician to follow home care plan of care after discharge: Franco Leal My clinical findings support the need for the above services because: the patient is medically frail and at risk for additional falls. Further, I certify that my clinical findings support that this patient is homebound (i.e. Absences from home require considerable and taxing effort and are for medical reasons or gnosticist services or infrequently or of short duration when for other reason) because: Absences from home require considerable and taxing effort and are for medical reasons Physician Signature: Date of Signature: Physician Printed Name: STEPHANIE Michael Reason for Visit * Reason Comments Return Visit 6 month f/u Emergency Department Follow-Up [facility]--01/27 2 had fall last week, fell on top on garbage can. R sided lower back/hib/rib. Nothing broken, Rx oxy.. asking for other pain tx. Encounter Details Date Type Department Care Team (Late st Contact Info) Description 02/18/2024 1:00 PM EDT Office Visit Family Practice 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 2017-declines colonoscopy for now. 05/07/13 [facility] Labs-gluc 110, K 3.3 otherwise BMP WNL [...] mRNA, LNP-s, No Pre serve, 2-Dose Series ([address]) 06/17/2021,08/09/2020,07/12/2020 COVID-19, LNP-s, No Preserve , Ashwin-sucrose, Ages 12+ ([address]) 12/06/2021 Covid-19, Mrna, Lnp-s, Pf, B ivalent, 30 Mcg, IM, 12 yrs and above (Pfizer) 04/18/2022 Pneumococcal Conjugate Vacc, 13 Valent (Prevnar) [...] on file documented as of this encounter Last Filed Vital Signs Vital Sign Reading Time Taken Comments Blood Pressure 138/62 02/18/2024 12:56 PM EDT Pulse 89 02/18/2024 12:56 PM EDT Temperature 36.3 C (97.3 F) 02/18/2024 12:56 PM E DT Respiratory Rate - - Oxygen Saturation 98% 02/18/2024 12:56 PM EDT Inhaled Oxygen Concentration - - Weight 61.9 kg (136 lb 8 oz) 02/18/2024 12:56 PM EDT Height - - Body Mass Index 22.54 08/02/2023 10:16 AM EST documented in this encounter Progress Notes * Kaykay Lui CRNP - 02/18/2024 1:09 PM EDT Images from the original note were not included. History of Present Illness Ania Jack is a 88 year old female that presents for Return Visit (6 month f/u ) and EmergencyDepartment Follow-Up ([facility]--02/16 had fall last week, fell on top on garbage can. R sided lower back/hib/rib. Nothing broken, Rx oxy.. asking for other pain tx. ) HPI Ania here with mathieu in law [place] for routine follow up. She did fall 3 days ago - caught her foot on trash can - and pain in R back worsened so she went to ER yesterday. Xrays without anyfracture. Did note R shoulder tendonitis. Was given 4 oxycodone tabs to take - would like non-opioid option. Pain with deep breaths. Walking worsens pain so she's been using wheelchair instead of walker. She did not hit head or lose consciousness. She lives alone but has several family members who helpher out. Interested in PT. Not driving right now due to pain. Otherwise taking medications as prescribed. Due for labs which she will get on her way out today. She notices it bae when she urinates in the late afternoon only - not when she wakes up or beforebed or overnight. Ears with some wax in both sides - wears hearing aids Current Outpatient Medications Medication Sig Dispense Refill Gabapentin 100 MG Oral Capsule (Neurontin) Take 1 Capsule by mouth at bedtime. 30 Capsule 3 amLODIPine Besylate 2.5 MG Oral Tablet (Norvasc) TAKE 1 TABLET BY MOUTH IN THE MORNING 90 Tablet 2 Losartan Potassium 100 MG Oral Tablet (Cozaar) TAKE 1 TABLET BY MOUTH IN THE MORNING 90 Tablet 2 Atorvastatin Calcium 20 MG Oral Tablet (Lipitor) TAKE ONE TABLET AT BEDTIME 90 Tablet 3 Levothyroxine Sodium 50 MCG Oral Tablet (Levoxyl) Take 1 Tablet by mouth daily first thing in the morning. 90 Tablet 3 Metoprolol Succinate ER 100 MG Oral Tablet Extended Release 24 Hour (toPROL XL) Take 1 Tablet by mouth at bedtime. 90 Tablet 3 Calcium Carbonate 600 MG Oral Tablet Take 1 Tablet by mouth 2 times a day with morning and evening meals. Lidocaine 4 % External Patch (Aspercreme) Place 1 Patch topically on the skin daily. To right knee 30 Patch 0 Melatonin 3 MG Oral Tablet Take 1 Tablet by mouth at bedtime as needed for Sleep. Multiple Vitamins-Minerals (MULTIVITAMIN ADULT) TABS Take 2 Tabs by mouth daily with lunch. Aspirin 81 MG Oral Tablet Delayed Release Take 1 Tablet by mouth in the morning. CLINDAMYCIN HCL 150 MG PO CAPS TAKE FOUR CAPSULES ONE HOUR PRIOR TO DENTAL PROCEDURE 4 Cap 6 CALCIUM-MAGNESIUM 500-250 MG PO TABS Take by mouth. VITAMIN D 2000 UNIT PO TABS 1 tab with evening meal No current facility-administered medications for this visit. Physical Exam Vitals: 02/18/24 1256 Temp: 36.3 C (97.3 F) Pulse: 89 SpO2: 98% BP: 138/62 Physical Exam Vitals reviewed. Constitutional: General: She is not in acute distress. Comments: In wheelchair due to pain in back HENT: Head: Normocephalic and atraumatic. Right Ear: Tympanic membrane, ear canal and external ear normal. There is impacted cerumen. Left Ear: Tympanic membrane, ear canal and external ear normal. There is impacted cerumen. Nose: Nose normal. Mouth/Throat: Mouth: Mucous membranes are moist. Eyes: Extraocular Movements: Extraocular movements intact. Conjunctiva/sclera: Conjunctivae normal. Pupils: Pupils are equal, round, and reactive to light. Cardiovascular: Rate and Rhythm: Normal rate. Pulmonary: Effort: No respiratory distress. Abdominal: General: There is no distension. Palpations: Abdomen is soft. Tenderness: There is no abdominal tenderness. There is no right CVA tenderness or left CVA tenderness. Musculoskeletal: Arms: Cervical back: Neck supple. Right lower leg: No edema. Left lower leg: No edema. Lymphadenopathy: Cervical: No cervical adenopathy. Skin: General: Skin is warm and dry. Capillary Refill: Capillary refill takes less than 2 seconds. Neurological: Mental Status: She is alert and oriented to person, place, and time. Psychiatric: Behavior: Behavior normal. Thought Content: Thought content normal. Assessment and Plan Acute right-sided thoracic back pain Discussed r/b/ae Do not take gabapentin with other sedating medications such as oxycodone Family will reach out after asking about home health with insurance - Gabapentin 100 MG Oral Capsule (Neurontin); Take 1 Capsule by mouth at bedtime. 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 | For: Labs Today | Check-out note: Home health PT referral Time: I spent a total of 30-39 minutes (exact time 35 mins) on the date of service in preparation, delivery, and documentation of the care provided to Ania Jack excluding any time spent in the performance of separately billed services. documented in this encounter Nursing Notes * Makayla Kirk LPN - 02/18/2024 12:55 PM EDT The patient has been properly identified by confirmation of name and date of . Chief Complaint Patient presents with Return Visit 6 month f/u Emergency Department Follow-Up [facility]--02/16 had fall last week, fell on top on garbage can. R sided lower back/hib/rib. Nothing broken, Rx oxy.. asking for other pain tx. documented in this encounter Plan of Treatment Upcoming Encounters Date Type Department Care Team (Late st Contact Info) Description 03/19/2024 1:30 PM EDT Imaging Radiology [facility] 1st [facility] [address] [facility] [address] [place] [address] 08/11/2024 2:20 PM EDT Office Visit Nephrology, [facility] [address] [place] [address] Noah Matos MD [address] [address] 08/18/2024 3:00 PM EDT Office Visit Family Practice [facility] [address] [place] [address] Franco Leal DO [address] [place] [address] Pending Results Name Type Priority Associated Diagnoses Date /Time URINALYSIS WITH MICROSCOPIC EXAM Lab Routine Dysuria 02/18/2024 2:06 PM EDT CULTURE, URINE, QUANTITATIVE Lab Routine Dysuria 02/18/2024 2:06 PM EDT Scheduled Orders Name Type Priority Associated Diagnoses Orde r Schedule URINALYSIS WITH MICROSCOPIC EXAM Lab Routine Dysuria Expected: 02/18/2024 (Approximate), Expires: 02/17/2025 CULTURE, URINE, QUANTITATIVE Lab Routine Dysuria Expected: 02/18/2024, Expires: 02/17/2025 REMOVAL IMPACTED CERUMEN IRRIGATION/LAVAGE, UNILAT Procedures Routine Personal history of fall Ordered: 02/18/2024 Scheduled Referrals Name Type Priority Associated Diagnoses Orde r Schedule HOME HEALTH REFERRAL OP Referral Within 10 days (routine) Personal history of fall Acute right-sided thoracic back pain Right shoulder tendonitis Ordered: 02/18/2024 Health Maintenance Due Date Last Done Comments Adult Wellness Visit 10/31/2018 10/31/2017 DXA Scan 10/06/2020 10/06/2013, 10/06/2013 Depression Screening 10/03/2022 10/03/2021 COVID-19 Vaccine ( season) 2024 04/18/2022, 04/18/2022, 12/06/2021, Additional history exists Influenza Vaccine (FLU shot) (#1) 2024 03/05/2022, 02/25/2020, 03/04/2019, Additional history exists Albumin/Creatinine Ratio 07/24/2024 024, 10/31/2017, 11/20/2016, Additional history exists CKD HGB USE SMARTSET 59782 07/24/202407/24, 07/24/2023, 01/03/2023, Additional history exists CKD PHOS USE SMARTSET 62573 07/24/202406/29, 01/03/2023, 10/03/2021, Additional history exists TSH [...] this encounter Medical Devices Implanted Type Area Greek Professor Device Identifier Shelf Expiration Date Model / Serial / Lot Cement Bone Full Mix Surg Simp - [id number] Implanted:Qty: 1 on 10/31/2011 at [facility] [place] Left: Knee [employer] : ORTHOPAEDICS 12/30/2012 6191-1-010 / / [id number] Cement Bone 1/2 Mix Surg Simpl - [id number] Implanted:Qty: 1 on 10/31/2011 at [facility] Left: Knee [employer] : ORTHOPAEDICS 09/29/2013 6188-1-010 / / [id number] Component Femoral Size 3 - [id number] Implanted:Qty: 1 on 10/31/2011 at [facility] Left: Knee [employer] : ORTHOPAEDICS 08/30/2016 5510-F-301 / [id number] / [id number] Triathlon X3 Tibial Bearing Insert- Ps Size 3, 9mm Thickness Implanted:Qty: 1 on 10/31/2011 at [facility] Left: Knee [employer] : ORTHOPAEDICS 01/25/2015 5532-G-309 / / [id number] Triathlon Primary Tibial Baseplate Size 3 Implanted:Qty: 1 on 10/31/2011 at [facility] Left: Knee [employer] : ORTHOPAEDICS 08/25/2016 5520-B-300 / / [id number] Triathlon X3 Symmetric Patella Size S29mm, 8mm Thickness Implanted:Qty: 1 on 10/31/2011 at [facility] Left: Knee [employer] : ORTHOPAEDICS 09/24/2016 5550-G-298 / / [id number] documented as of this encounter Visit Diagnoses Diagnosis Acute right-sided thoracic back pain- Primary Personal history of fall Right shoulder tendonitis Dysuria 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 Healthcare Agents on File Name Relationship Healthcare Agent [facility] Communication Olya [place] Adult Child Health Care Repr esentative (appointed verbally by patient or by statute hierarchy) Care Teams Dispatcher Radio Relationship Specialty Start Date End Date Franco Leal DO [address] [place] [address] PCP - General Family Medicine 06/30/19 documented as of this encounter
--- OUTSIDE RECORDS SUMMARY | 2024-02-22 00:23 | External Medical Summary | Summary of Care ---
Author Name Unknown Organization [facility] Address [address] [place] [address] Phone [phone] Care Team Providers Care Belt Molder Name Role Phone LealFrancokathy Primary Care Provider Reason for Referral * Evaluate & Treat - Unlimited Visits (Within 10 days (routine)) - Authorized Specialty Diagnoses / Procedures Referred By Yadiel ross Referred To Contact HOME CARE / Home Care Diagnoses Personal history of fall Acute right-sided thoracic back pain Right shoulder tendonitis Kaykay Lui CRNP [address] [place] [address] Referral ID Status Reason Start Date Expiration Date Visits Requested Visits Authorized [id number] Authorized Specialty Services Required 02/18/2024 999 999 Question Answer Referral Priority Within 10 days (routine) Where should this appointment be scheduled? Farhad Comments Documentation of Wdzx-vt-Kkit Encounter Addendum Patient Name: Ania Jack I certify that this patient is under my care and that I, or a nurse practitioner or physician's office assistant receptionist working with me, had a oytl-ez-nvll encounter that meets the physician olul-ka-hyov encounter requirements with this patient on: 02/18/24 [...] effort and are for medical reasons or episcopal services or infrequently or of short duration [...] 1:00 PM EDT Office Visit Family Practice [facility] [address] [address] Kaykay Lui CRNP [address] [place] [address] Acute right-sided thoracic back pain*; Personal history [...] July 2018. 2017-declines colonoscopy for now. 05/07/13 [facility] Labs-gluc 110, K 3.3 otherwise [...] mRNA, LNP-s, No Pre serve, 2-Dose Series ([employer]) 06/17/2021,08/09/2020,07/12/2020 COVID-19, LNP-s, No Preserve , Ashwin-sucrose, Ages 12+ ([employer]) 12/06/2021 Covid-19, Mrna, Lnp-s, Pf, B ivalent, [...] documented in this encounter Progress Notes * Makayla Kirk LPN - 02/18/2024 2:18 PM EDT Ear Irrigation Procedure: Irrigation Solution: Up to 200 ml of solution may be instilled with one Procedure Solution Used: Water 180 ml/ Hydrogen Peroxide 20 ml (Mixed) Ear(s) Irrigated: Right Response: Clear Fluid Returned, Particulate Returned, and Patient Tolerated Well Makayla Kirk LPN * Kaykay Lui CRNP - 02/18/2024 1:09 [...] ) HPI Ania here with mathieu in [facility] for routine follow up. She did fall [...] Description 03/19/2024 1:30 PM EDT Imaging Radiology [facility]st [facility] [address] [place] [address] 08/11/2024 2:20 PM EDT Office Visit Nephrology, [facility] [address] [place] [address] Noah Matos MD [address] [facility] [place] [address] 08/18/2024 3:00 PM EDT Office Visit Family Practice [facility] [address] [place] [address] Franco Leal DO [address] [place] [address] Pending Results Name Type Priority Associated Diagnoses [...] Additional history exists CKD HGB USE SMARTSET 23218 07/24/202407/24, 07/24/2023, 01/03/2023, Additional history exists CKD PHOS USE SMARTSET 70572 07/24/202406/29, 01/03/2023, 10/03/2021, Additional history exists TSH [...] this encounter Medical Devices Implanted Type Area Muffler Hand Device Identifier Shelf Expiration Date Model / Serial / Lot Cement Bone Full Mix Surg Simp - [id number] Implanted:Qty: 1 on 10/31/2011 at [place] [facility] [place] Left: Knee [employer] : ORTHOPAEDICS 12/30/2012 6191-1-010 / / [id number] Cement Bone 1/2 Mix Surg Simpl - [id number] Implanted:Qty: 1 on 10/31/2011 at [place] [facility] [place] Left: Knee [employer] : ORTHOPAEDICS 09/29/2013 6188-1-010 / / [id number] Component Femoral Size 3 - [id number] Implanted:Qty: 1 on 10/31/2011 at [place] [facility] [place] Left: Knee [employer] : ORTHOPAEDICS 08/30/2016 5510-F-301 / [id number] / [id number] Triathlon X3 Tibial Bearing Insert- Ps Size 3, 9mm Thickness Implanted:Qty: 1 on 10/31/2011 at [place] [facility] [place] Left: Knee [employer] : ORTHOPAEDICS 01/25/2015 5532-G-309 / / [id number] Triathlon Primary Tibial Baseplate Size 3 Implanted:Qty: 1 on 10/31/2011 at [place] [facility] [place] Left: Knee [employer]O : ORTHOPAEDICS 08/25/2016 5520-B-300 / / [id number] Triathlon X3 Symmetric Patella Size S29mm, 8mm Thickness Implanted:Qty: 1 on 10/31/2011 at [place] [facility] [place] Left: Knee [employer] : ORTHOPAEDICS 09/24/2016 5550-G-298 [...] Agents on File Name Relationship Healthcare Agent [facility] Communication Olya [place] Adult Child Health Care Repr esentative (appointed verbally by patient or by statute hierarchy) Care Teams Belt Molder Relationship Specialty Start Date End Date Franco Leal DO [address] [place] [address] PCP - General Family Medicine 06/30/19 documented as of this encounter
--- OUTSIDE RECORDS SUMMARY | 2024-02-22 00:24 | External Medical Summary ---
Author Name Unknown Address Unknown Organization [id number]:[facility] [place] [address] [facility] [address] Laboratory Report Ordering Provider Test Date Status BEATRICE VARMA 02/18/2024 14:06:39 Final Observation Date Value Abnormality Reference (Units ) Status Triglyceride 02/18/2024 14:06:39 74 <=174 ( mg/dL) Final Triglyceride Reference Range s (mg/dL):
<150 Acceptable
150-174 Borderline high
175-499 High
>=500 Very high Cholesterol 02/18/2024 14:06:39 127 <200 (mg /dL) Final Total Cholesterol Reference Ranges (mg/dL):
<200 Desirable
200-239 Borderline high
>=240 High HDL 02/18/2024 14:06:39 47 Below low normal >49 (mg/dL) Final HDL Cholesterol Reference Ra nges (mg/dL):
>=60 High (Desirable)
<50 Low (Undesirable) For Females
<40 Low (Undesirable) For Males NON-HDL CHOLESTEROL 02/18/2024 14:06:39 80 <=159 (mg/dL) Final Non-HDL Cholesterol Referenc e Range (mg/dL):
<100 Target level for high risk ASCVD patient
<130 Optimal for general population
130-159 Near optimal for general population
160-189 Borderline High
190-219 High
>=220 Very High LDL, (calculated) 02/18/2024 14:06:39 65 <= 129 (mg/dL) Final LDL Cholesterol Reference Ra nges (mg/dL):
<70 Target level for high risk ASCVD patient
<100 Optimal for general population
100-129 Near optimal for general population
130-159 Borderline high
160-189 High
>=190 Very high Performing Location [facility] [place] [address] [facility] [address]
--- OUTSIDE RECORDS SUMMARY | 2024-02-22 00:24 | External Medical Summary ---
Author Name Unknown Address Unknown Organization [id number]:[facility] [address] - [address] [place] [address] Laboratory Report Ordering Provider Test Date Status BEATRICE VARMA 02/18/2024 14:06:39 Final Observation Date Value Abnormality Reference (Units ) Status BUN 02/18/2024 14:06:39 23 Above high normal 6-20 (mg/dL) Final Creatinine 02/18/2024 14:06:39 1.3 Above high normal 0.5-1.0 (mg/dL) Final Glomerular filtration rate/1.73 sq M.predicted [Volume Rate/Area] in Serum, Plasma or Blood by Creatinine-based formula (CKD-EPI) 02/18/2024 14:06:39 39 Below low normal >=60 (mL/min) Final eGFR is calculated based on the CKD-EPI 2020 equation. Sodium 02/18/2024 14:06:39 131 Below low normal 135 -146 (mmol/L) Final Potassium 02/18/2024 14:06:39 4.7 3.5-5.1 (m mol/L) Final Cl 02/18/2024 14:06:39 92 Below low normal 98- 107 (mmol/L) Final CO2 02/18/2024 14:06:39 21 Below low normal 22- 32 (mmol/L) Final Anion gap 02/18/2024 14:06:39 18 Above high normal 7- 15 (mmol/L) Final Glucose 02/18/2024 14:06:39 133 Above high normal 70 -120 (mg/dL) Final Albumin 02/18/2024 14:06:39 3.7 Below low normal 3.8 -5.0 (g/dL) Final AST (Aspartate aminotransferase) 02/18/2024 14:06:39 19 10-35 (U/L) Fin al Alk Phos 02/18/2024 14:06:39 104 35-130 (U/ L) Final Bilirubin, Total 02/18/2024 14:06:39 0.9 <=1 .2 (mg/dL) Final Calcium 02/18/2024 14:06:39 10.0 8.4-10.2 ( mg/dL) Final Protein 02/18/2024 14:06:39 7.7 6.0-8.3 (g /dL) Final ALT (Alanine aminotransferase) 02/18/2024 14:06:39 13 10-35 (U/L) Fercho vaughan Performing Location LAB[facility]ATORY [facility] [address] - [address] [facility] [address]
[2024-02-22] MEDS: DOXYCYCLINE HYCLATE 100 MG in DEXTROSE 5% MINI-B 100 ML IV STA (00:39)
--- NOTE | 2024-02-22 00:54 | CT Scan Report ---
Exam(s): CT CHEST With Contrast IV Amt: 92 ml opti 320 EXAM: CT Chest With Intravenous Contrast CLINICAL HISTORY: Reason for exam: back pain, trauma. TECHNIQUE: Axial computed tomography images of the chest with intravenous contrast. CTDI is 11.01 mGy and DLP is 338.96 mGy-cm. Automated exposure control was utilized for the study. A dose lowering technique was utilized adhering to the principles of ALARA. CONTRAST: Patient received 92 ml opti 320 of IV contrast COMPARISON: No relevant prior studies available. FINDINGS: Lungs: Unremarkable. No mass. No consolidation. Pleural space: Unremarkable. No pneumothorax. No significant effusion. Heart: Unremarkable. No cardiomegaly. No significant pericardial effusion. No significant coronary artery calcifications. Bones/joints: Degenerative changes of the spine. No acute fracture. No dislocation. Soft tissues: Unremarkable. Vasculature: Atherosclerotic changes of the aorta. No thoracic aortic aneurysm. Lymph nodes: Unremarkable. No enlarged lymph nodes. IMPRESSION: No acute findings in the chest. Electronically signed by: Emanuel Tyler MD 02/22/24 00:53 AM
--- NOTE | 2024-02-22 01:03 | CT Scan Report ---
Exam(s): CT ABDOMEN + PELVIS With Contrast IV Amt: 92 ml opti 320 EXAM: CT Abdomen and Pelvis With Intravenous Contrast CLINICAL HISTORY: Reason for exam: back pain, trauma. TECHNIQUE: Axial computed tomography images of the abdomen and pelvis with intravenous contrast. CTDI is 15.09 mGy and DLP is 660.6 mGy-cm. Automated exposure control was utilized for the study. A dose lowering technique was utilized adhering to the principles of ALARA. CONTRAST: Patient received 92 ml opti 320 of IV contrast COMPARISON: No relevant prior studies available. FINDINGS: Lung bases: Unremarkable. No mass. No consolidation. ABDOMEN: Liver: Hepatic steatosis. Gallbladder and bile ducts: Unremarkable. No calcified stones. No ductal dilation. Pancreas: Unremarkable. No mass. No ductal dilation. Spleen: Unremarkable. No splenomegaly. Adrenals: Unremarkable. No mass. Kidneys and ureters: Severe atrophy of LEFT kidney. No hydronephrosis. Stomach and bowel: Mild fecal retention, correlate for constipation. Diverticulosis, without acute diverticulitis. No small bowel obstruction. No free intraperitoneal air. PELVIS: Appendix: No findings to suggest acute appendicitis. Bladder: Unremarkable. No mass. Reproductive: Calcified uterine fibroids. ABDOMEN and PELVIS: Intraperitoneal space: Unremarkable. No free air. No significant fluid collection. Bones/joints: Degenerative changes of the spine. No acute fracture. No dislocation. Soft tissues: Unremarkable. Vasculature: Atherosclerotic changes of the aorta. No abdominal aortic aneurysm. Lymph nodes: Unremarkable. No enlarged lymph nodes. IMPRESSION: 1. Mild fecal retention, correlate for constipation. 2. Hepatic steatosis. 3. Diverticulosis, without acute diverticulitis. No small bowel obstruction. No free intraperitoneal air. 4. Severe atrophy LEFT kidney. Electronically signed by: Emanuel Tyler MD 02/22/24 01:02 AM
--- NOTE | 2024-02-22 01:12 | CT Scan Report ---
Exam(s): CT EXTREMITY LEFT LOWER With Contrast IV Amt: 92 ml opti 320 EXAM: CT Left Lower Extremity With Intravenous Contrast CLINICAL HISTORY: Reason for exam: swelling, sepsis. TECHNIQUE: Axial computed tomography images of the left lower extremity with intravenous contrast. CTDI is 7.08 mGy and DLP is 370.23 mGy-cm. Automated exposure control was utilized for the study. A dose lowering technique was utilized adhering to the principles of ALARA. CONTRAST: Patient received 92 ml opti 320 of IV contrast COMPARISON: No relevant prior studies available. FINDINGS: Bones/joints: There is metallic artifact from a left total knee arthroplasty. There is a moderate sized knee joint effusion measuring 1. 4 cm AP by 5.7 cm transverse with slight rim enhancement. The osseous structures are intact and normally aligned. No acute fracture or dislocation is seen. Soft tissues: Mild skin thickening and subcutaneous edema over the lower left leg and ankle suggesting cellulitis. No subcutaneous emphysema, or abscess, or foreign body is seen. IMPRESSION: 1. There is metallic artifact from a left total knee arthroplasty. There is a moderate sized knee joint effusion measuring 1.4 cm AP by 5.7 cm transverse with slight rim enhancement. In the setting of infection, septic joint should be considered. 2. Mild skin thickening and subcutaneous edema over the lower left leg and ankle suggesting cellulitis. No subcutaneous emphysema, or abscess, or foreign body is seen. Communications: Call Doctor Above results Electronically signed by: Anuj Dexter MD 02/22/24 01:11 AM
[2024-02-22] MEDS ORDERED: VANCOMYCIN CONSULT ACTIVE PRN (01:21)
[2024-02-22] MEDS: METOPROLOL TARTRATE 1 MG/ML VIAL IV STA ×2 (01:24→23:45)
[2024-02-22] MEDS ORDERED: POLYETHYLENE (MIRALAX) 17 GM PACK PO PRN (01:35)
[2024-02-22] MEDS: MAGNESIUM SULFATE / D5W 1 GM/100 ML BAG IV SCH (01:53)
[2024-02-22] MEDS: VANCOMYCIN HCL 1,500 MG in SODIUM CHLORIDE 0.9% 500 ML IV STA (01:53)
[2024-02-22 05:38] LABS: Basophils # (auto) 0.02 K/uL (0.00-0.20); Basophils % (auto) 0.1 %; Eosinophils # (auto) 0.03 K/uL (0.00-0.50); Eosinophils % (auto) 0.2 %; Hematocrit (blood only) 29.9 % (37.0-47.0); Hemoglobin 9.7 g/dl (12.0-16.0); Immature Granulocytes # (auto) 0.09 K/uL (0.01-0.20); Immature Granulocytes % (auto) 0.6 %; Lymphocytes # (auto) 1.34 K/uL (1.20-3.40); Lymphocytes % (auto) 8.6 %; Mean Corpuscular Hemoglobin 30.9 pg (25.0-34.0); Mean Corpuscular Hgb Conc 32.4 g/dL (32.0-36.0); Mean Corpuscular Volume 95.2 fL (80.0-100.0); Mean Platelet Volume 8.9 fL (9.4-12.4); Monocytes # (auto) 1.65 K/uL (0.11-0.59); Monocytes % (auto) 10.6 %; Neutrophils # (auto) 12.46 K/uL (1.40-6.50); Neutrophils % (auto) 79.9 %; Platelet Count 351 K/uL (130-400); RDW Coefficient of Variation 11.5 % (11.5-14.5); RDW Standard Deviation 40.2 fL (36.4-46.3); Red Blood Count 3.14 M/uL (4.20-5.40); White Blood Count 15.59 K/ul (4.8-10.8)
[2024-02-22 05:54] LABS: BUN Creatinine Ratio 21.4 (10-20); Calcium 8.8 mg/dl (8.6-10.3); Creatinine Clr Calc Pharmacy 37.4 ml/min; Est GFR (African American) 60.5 ml/min; Est GFR (Non-African American) 52.2 ml/min; Potassium 4.4 mmol/L (3.5-5.1)
[2024-02-22 06:13] LABS: C Reactive Protein 33.17 mg/dl (0-0.5)
[2024-02-22] MEDS: LEVOTHYROXINE SODIUM 50 MCG TABLET PO SCH (06:30)
--- OUTSIDE RECORDS SUMMARY | 2024-02-22 06:35 | External Medical Summary | Summary of Care ---
Author Name Unknown Organization [facility] Address [address] [place] [address] Phone [phone] Care Team Providers Care Application Development Specialist Name Role Phone Franco Leal Primary Care Provider Reason for Visit * Reason Comments Acute Increasing pain-- R side rib/lower back/ hip pain, L leg & foot (swelling). Pt had L knee replaced, 15 yrs ago. Encounter Details Date Type Department Care Team (Late st Contact Info) Description 02/21/2024 1:20 PM EDT Office Visit Family Practice [facility] [address] [place] [address] Kaykay Lui CRNP [address] [place] [address] Leukocytosis, unspecified type*; Pain and swelling of left knee; Pain and swelling of lower leg, left; Rib pain on right side Allergies Active Allergy Reactions Criticality Noted Date [...] as of this encounter (statuses as of 02/21/2024) Medications Medication Sig Dispensed Refills Start Date [...] as of this encounter (statuses as of 02/21/2024) Active Problems Problem Noted Date Diagnosed Date [...] July 2018. 2017-declines colonoscopy for now. 05/07/13 [facility] Labs-gluc 110, K 3.3 otherwise BMP [...] as of this encounter (statuses as of 02/21/2024) Resolved Problems Problem Noted Date Diagnosed Date [...] as of this encounter (statuses as of 02/21/2024) Immunizations Name Administration Dates Next Due COVID-19 mRNA, LNP-s, No Pre serve, 2-Dose Series ([facility]) 06/17/2021,08/09/2020,07/12/2020 COVID-19, LNP-s, No Preserve , Ashwin-sucrose, Ages 12+ (Pfizer) 12/06/2021 Covid-19, Mrna, Lnp-s, Pf, B ivalent, 30 Mcg, IM, 12 yrs and above ([facility]) 04/18/2022 Pneumococcal Conjugate Vacc, 13 Valent (Prevnar) [...] Sign Reading Time Taken Comments Blood Pressure 114/64 02/21/2024 1:22 PM EDT Pulse 92 02/21/2024 1:22 PM EDT Temperature 36.7 C (98.1 F) 02/21/2024 1:22 PM ED T Respiratory Rate - - Oxygen Saturation 98% 02/21/2024 1:22 PM EDT Inhaled Oxygen Concentration - - Weight - - Height - - Body Mass Index - - documented in this encounter Progress Notes * Kaykay Lui CRNP - 02/21/2024 1:57 PM EDT Images from the original note were not included. History of Present Illness Aina Jack is a 88 year old female that presents for Acute (Increasing pain-- R side rib/lowerback/ hip pain, L leg & foot (swelling). Pt had L knee replaced, 15 yrs ago. ) HPI Here for increased pain in her rib area and left knee and left calf. I saw her two days ago for ER follow up after a mechanical fall. She had undergone imaging of her R hip and R ribs/back after the fall which were unremarkable. She was having a lot of rib pain so advised to use tylenol and gabapentin. Her labs came back after that visit showing a WBC count of 13.64. She complains today of severeL knee pain and L calf swelling in addition to continued rib pain. She is shaking which she attributes to pain but are concerning for rigors. She has not had a measured fever but has been taking tylenol regularly. She is tearful from the level of pain she is in. Her daughter and son in law will transport her to ER. Current Outpatient Medications Medication Sig Dispense Refill [...] medications for this visit. Physical Exam Vitals: 02/21/24 1322 Temp: 36.7 C (98.1 F) Pulse: 92 SpO2: 98% BP: 114/64 Physical Exam Vitals reviewed. Constitutional: General: She is in acute distress. Comments: + rigors Cardiovascular: Rate and Rhythm: Regular rhythm. Tachycardia present. Heart sounds: Murmur heard. Pulmonary: Effort: No respiratory distress. Breath sounds: No wheezing, rhonchi or rales. Neurological: Mental Status: She is alert and oriented to person, place, and time. Psychiatric: Behavior: Behavior normal. Thought Content: Thought content normal. Assessment and Plan Leukocytosis, unspecified type Concern for pneumonia/sepsis, joint infection, and/or DVT Given severe pain and new onset L lower leg swelling recommend ER - daughter and son in law will take her Pain and swelling of left knee As above Pain and swelling of lower leg, left As above Rib pain on right side As above Wrap-Up Follow Up: Return if symptoms worsen or fail to improve. Time: I spent a total of 20-29 minutes (exact time 20 mins) on the date of service in preparation, delivery, and documentation of the care provided to Ania Jack excluding any time spent in the performance of separately billed services. documented in this encounter Nursing Notes * Makayla Kirk LPN - 02/21/2024 1:17 PM EDT The patient has been properly identified by confirmation of name and date of . Chief Complaint Patient presents with Acute Increasing pain-- R side rib/lower back/ hip pain, L leg & foot (swelling). Pt had L knee replaced, 15 yrs ago. Pt can't take opioids. Taking her cosme & extra strength tylenol. Pt interested in pain medication or muscle relaxer's. Pt heaving muscle spasm, twitches. Had labs on 02/17-- needs reviewed. documented in this encounter Plan of Treatment Upcoming Encounters Date Type Department Care Team (Late st Contact Info) Description 03/19/2024 1:30 PM EDT Imaging Radiology [facility] [address] [place] [address] 08/11/2024 2:20 PM EDT Office Visit Nephrology, [facility] [address] [place] [address] Noah Matos MD [address] [place] [id number] 08/18/2024 3:00 PM EDT Office Visit Family Practice [facility] [address] [place] [address] Franco Leal, DO [address] [place] [address] Health Maintenance Due Date Last Done Comments Adult Wellness Visit 10/31/2018 10/31/2017 DXA Scan 10/06/2020 10/06/2013, 10/06/2013 Depression Screening 10/03/2022 10/03/2021 COVID-19 Vaccine ( season) 2024 04/18/2022, 04/18/2022, 12/06/2021, Additional history exists Influenza Vaccine (FLU shot) (#1) 2024 03/05/2022, 02/25/2020, 03/04/2019, Additional history exists DTap/Tdap Vaccines (4 - Td or Tdap) 10/20/2024 10/20/2014, 10/18/2014, 05/14/2013 Albumin/Creatinine Ratio 02/17/2025 024, 07/24/2023, 10/31/2017, Additional history exists CKD HGB USE SMARTSET 18733 02/17/202502/17, 02/18/2024, 07/24/2023, Additional history exists CKD PHOS USE SMARTSET 81762 02/17/202501/27, 07/24/2023, 01/03/2023, Additional history exists TSH 02/17/2025 02/18/2024, 06/29, 10/03/2021, Additional history exists Colonoscopy Discontinued 09/08/2010 Pneumococcal Vaccine: 65+ Years [...] this encounter Medical Devices Implanted Type Area Snipper Device Identifier Shelf Expiration Date Model / Serial / Lot Cement Bone Full Mix Surg Simp - [id number] Implanted:Qty: 1 on 10/31/2011 at OR [facility] Left: Knee [employer] : ORTHOPAEDICS 12/30/2012 6191-1-010 / / [id number] Cement Bone 1/2 Mix Surg Simpl - [id number] Implanted:Qty: 1 on 10/31/2011 at OR [facility] Left: Knee [employer] : ORTHOPAEDICS 09/29/2013 [id number] / / [id number] Component Femoral Size 3 - [id number] Implanted:Qty: 1 on 10/31/2011 at OR [facility] Left: Knee [employer] : ORTHOPAEDICS 08/30/2016 [id number] / [id number] / [id number] Triathlon X3 Tibial Bearing Insert- Ps Size 3, 9mm Thickness Implanted:Qty: 1 on 10/31/2011 at OR [facility] Left: Knee [employer] : ORTHOPAEDICS 01/25/2015 [id number] / / [id number] Triathlon Primary Tibial Baseplate Size 3 Implanted:Qty: 1 on 10/31/2011 at OR [facility] Left: Knee [employer] : ORTHOPAEDICS 08/25/2016 [id number] / / [id number] Triathlon X3 Symmetric Patella Size S29mm, 8mm Thickness Implanted:Qty: 1 on 10/31/2011 at OR [facility] Left: Knee [employer] : ORTHOPAEDICS 09/24/2016 [id number]-[id number] / / [id number] documented as of this encounter Visit Diagnoses Diagnosis Leukocytosis, unspecified type- Primary Pain and swelling of left knee Pain and swelling of lower leg, left Rib pain on right side Chest pain, unspecified documented in this encounter Advance Directives * Full Code (Latest Code Status on File) Date Activated Date Inactivated Comments 10/31/2011 10:49 AM 11/03/2011 7:38 PM This order re flects the patients wishes and were consensually agreed upon. Healthcare Agents on File Name Relationship Healthcare Agent Yolisne verna Communication Olya Ramirez Adult Child Health Care Repr esentative (appointed verbally by patient or by statute hierarchy) Care Teams Application Development Specialist Relationship Specialty Start Date End Date Franco Leal DO [address] [place] [address] PCP - General Family Medicine 06/30/19 documented as of this encounter
[2024-02-22 07:40] LABS: Estimated Average Glucose 134 mg/dl; Hemoglobin A1C 6.3 % (4.5-5.6)
[2024-02-22] MEDS ORDERED: DOXYCYCLINE HYCLATE 100 MG CAP PO SCH (09:00)
[2024-02-22] MEDS: LOSARTAN POTASSIUM 50 MG TAB PO SCH (09:32)
[2024-02-22] MEDS: METOPROLOL SUCC 50MG EXT REL TAB PO SCH (09:32)
[2024-02-22] MEDS: amLODIPine BESYLATE 5 MG TAB PO SCH (09:32)
[2024-02-22] MEDS: oxyCODONE HCL IR 5 MG TAB (IMMEDIATE RELEASE) PO PRN (09:33)
[2024-02-22] MEDS: SODIUM CHLORIDE 0.9% 500 ML IV ONE (09:36)
--- NOTE | 2024-02-22 11:05 | Pharmacy Report ---
Pharmacy PK ABX Note - Date of Service February 22, 2024 - Assessment and Plan Assessment 88 year old F receiving vancomycin for treatment of possible septic arthritis and ceftriaxone for a complicated UTI. Pertinent microbiologic data includes: gram(-) bacilli growing in preliminary urine culture and blood culture is pending. * + leukocytosis and afebrile Day # 2 of antimicrobial therapy. Plan Vancomycin * Loading dose: 1500 mg IV x 1 on 02/20 * Maintenance dose: 1000 mg IV every 24 hours * Regimen is predicted to achieve target AUC/JOSELITO of 400-600 mg/L.hr * Trough level ordered for: 02/25/24 with morning labs Pharmacy will continue to follow and will adjust dose/frequency as necessary. Thank you. Pharmacy has transitioned to AUC monitoring for vancomycin. AUC/JOSELITO is the preferred PK/PD target and is associated with decreased risk of nephrotoxicity compared to traditional trough targets.
[2024-02-22] MEDS: DOCUSATE SODIUM 100 MG CAP PO SCH (12:44)
--- NOTE | 2024-02-22 13:32 | Hospitalist Progress Note ---
Date of Service February 22, 2024 Assessment & Plan (1) Hypertensive crisis: Plan: Secondary to discomfort Blood pressure was noted to be very high on admission with systolic more than 199 Likely secondary to multiple factors including pain and anxiety has been getting amlodipine, losartan and metoprolol to control the blood pressure Seems to be towards control now Will monitor Troponin elevation secondary to illness and uncontrolled blood pressure Doubt any ACS Chronic diastolic heart failure (EF 70%, TTE 2022), patient on the dry side Valvular heart disease (mild to moderate , TTE 2022) (2) Sepsis: Plan: Met sepsis criteria on admission Multifactorial : Complicated UTI Left knee joint/LLE cellulitis- to rule out septic arthritis Blood cultures have been taken Has been on intravenous ceftriaxone and vancomycin for now (3) Urinary tract infection: (4) Fall: Plan: Recent fall on Sunday without any loss of consciousness Since that time she has had multiple x-rays including hip, rib, shoulder, foot, knee, tibia and fibula, and lately lower extremity CT No evidence of fractures identified Will get PT and OT evaluation on improvement (5) Contusion of knee, left: Plan: History of left knee prosthesis Has been complaining of more pain following the fall and the knee joint Knee joint is acutely swelled with increasing local temperature and also increasing pain with movement CT of the left knee joint showed moderate-sized knee joint effusion measuring 1.7 cm AP by 5.7 cm transverse with slight rim enhancement. 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 SCDs Re: Possible procedure Recommend pharmacologic anticoagulation with Lovenox 40 mg subcutaneous daily once bleeding risk is deemed to be minimal and negligible pending Orthopedics evaluation. Full code Patient daughter requesting updates providers. Ms. Olya Ramirez, contact #[phone].- discussed with the daughter and other family member Admission and Anticipated Discharge Date Admission Date: February 21, 2024 Subjective 02/22/2024 The patient was seen and examined in emergency room in presence of the family members She has been complaining of pain in multiple areas following a fall on Sunday last Also noted to have very high blood pressure on admission She has been feeling little better since admission Review of Systems Review of Systems: all systems reviewed and are unremarkable except as noted below Physical Exam Physical Exam: lying in bed without any apparent distress Constitutional: + ill appearing and average body habitus Eyes: PERRL, conjunctivae normal, anicteric sclerae ENMT: external ear and nose normal, oropharynx normal Neck: trachea midline, no thyromegaly Respiratory: no respiratory distress Auscultation: lungs clear to auscultation bilaterally Cardiovascular: Rate/Rhythm: regular rate and regular rhythm; not tachycardic Heart Sounds: normal S1, normal S2 and + murmur Extremities: + edema ( trace edema bilaterally) Gastrointestinal (Abdomen): Inspection/Auscultation: normal bowel sounds; abdomen not distended Percussion/Palpation: abdomen soft; abdomen nontender Musculoskeletal: Mild arthritis involving multiple joints, swelling and increasing warmth and significant pain with movement of the left knee joint Neurologic: normal touch/pain/proprioception and moves all extremities; no focal motor deficits Psychiatric: A+Ox3, euthymic affect Lymphatic: no cervical or axillary lymphadenopathy Results & Data Results & Data Vital Signs (Past 12 Hours) Vital Signs Temp Pulse Pulse Resp BP BP Pulse Ox 02/22/24 12:45 97 H 02/22/24 10:56 90 20 157/78 H 93 02/22/24 09:18 110 H 20 176/98 H 95 02/22/24 04:30 93 H 22 148/81 H 96 02/22/24 04:12 93 H 21 157/78 H 96 02/22/24 03:30 96 H 24 151/77 H 94 02/22/24 03:00 94 H 24 161/88 H 97 02/22/24 02:04 36.8 C 88 20 151/81 H 94 02/22/24 02:00 89 22 151/81 H 96 02/22/24 01:59 92 H 151/8 H 02/22/24 01:24 96 H 155/76 H 02/22/24 01:15 101 H 21 155/76 H 95 O2 Del Method O2 Flow Rate 02/22/24 12:45 02/22/24 10:56 Room Air 02/22/24 09:18 Room Air 02/22/24 04:30 Nasal Cannula 2 02/22/24 04:12 Nasal Cannula 2 02/22/24 03:30 Nasal Cannula 2 02/22/24 03:00 Nasal Cannula 2 02/22/24 02:04 Room Air 02/22/24 02:00 Nasal Cannula 2 02/22/24 01:59 02/22/24 01:24 02/22/24 01:15 Room Air Laboratory Results Short CBC 02/21/24 02/22/24 Range/Units 16:00 05:18 WBC 19.36 H 15.59 H (4.8-10.8) K/ul Hgb 11.3 L 9.7 L (12.0-16.0) g/dl Hct 35.1 L 29.9 L (37.0-47.0) % Plt Count 427 H 351 (130-400) K/uL BMP 02/21/24 02/21/24 02/22/24 16:00 23:30 05:18 Sodium 127 L 129 L 129 L Potassium 3.8 4.4 Chloride 92 L 100 Carbon Dioxide 23 22 BUN 23 21 Creatinine 1.20 0.98 Glucose 262 H 149 H Calcium 9.4 8.8 Cardiac Enzymes 02/21/24 Range/Units 23:30 Total Creatine Kinase 86 (26-192) U/L Liver Function 02/21/24 Range/Units 16:00 Total Bilirubin 0.7 (0.2-1.0) mg/dl AST 28 (13-39) U/L ALT 17 (7-52) U/L Alkaline Phosphatase 131 H (34-104) U/L Albumin 3.5 (3.4-5.0) gm/dl Urine 02/21/24 Range/Units 20:42 Urine Color Yellow Urine Appearance Cloudy A (Clear) Urine pH 5.5 (4.5-7.5) Ur Specific [place] 1.026 (1.000-1.030) Urine Protein 2+ H (Negative) Urine Glucose (UA) Negative (Negative) Medications Administered Current Inpatient Medications Acetaminophen (Acetaminophen 325 Mg Tab) 650 mg PO QID PRN PRN Reason: pain/fever Stop: 03/22/24 23:04 Amlodipine Besylate (Amlodipine Besylate 5 Mg Tab) 2.5 mg PO DAILY TIM Stop: 03/23/24 08:59 Last Admin: 02/22/24 09:32 Dose: 2.5 mg Aspirin (Aspirin 81 Mg Chew) 81 mg PO HS [facility] Stop: 03/23/24 20:59 Atorvastatin Calcium (Atorvastatin 20 Mg Tab) 20 mg PO HS TIM Stop: 03/23/24 20:59 Docusate Sodium (Docusate Sodium 100 Mg Cap) 100 mg PO BID TIM Stop: 03/23/24 08:59 Last Admin: 02/22/24 12:44 Dose: 100 mg Ceftriaxone Sodium (Rocephin) 2,000 mg in 50 mls @ 100 mls/hr IV Q24H TIM Stop: 03/03/24 21:59 Promethazine HCl (Phenergan) 6.25 mg in 50.25 mls @ 201 mls/hr IV Q6H PRN PRN Reason: Nausea And Vomiting Stop: 03/22/24 23:04 Vancomycin HCl 1,000 mg/ (Sodium Chloride) 270 mls @ 200 mls/hr IV Q24H [facility] Stop: 04/04/24 13:59 Sodium Chloride (Nss) 500 mls @ 50 mls/hr IV .Q10H ONE Stop: 02/22/24 17:08 Last Admin: 02/22/24 09:36 Dose: 50 mls/hr Levothyroxine Sodium (Levothyroxine Sodium 50 Mcg Tablet) 50 mcg PO DAILYBB [facility] Stop: 03/23/24 06:29 Last Admin: 02/22/24 06:30 Dose: 50 mcg Losartan Potassium (Losartan Potassium 50 Mg Tab) 100 mg PO QAM [facility] Stop: 03/23/24 08:59 Last Admin: 02/22/24 09:32 Dose: 100 mg Metoprolol Succinate (Metoprolol Succ 50mg Ext Rel Tab) 100 mg PO DAILY [facility] Stop: 03/23/24 08:59 Last Admin: 02/22/24 09:32 Dose: 100 mg Miscellaneous Information (Vancomycin Consult Active) 1 each N/A UD PRN PRN Reason: Consult Stop: 03/23/24 01:20 Morphine Sulfate (Morphine Sulfate 2 Mg/Ml Carp) 2 mg IV Q3H PRN PRN Reason: Pain Stop: 03/06/24 23:04 Oxycodone HCl (Oxycodone Hcl Ir 5 Mg Tab (Immediate Release)) 5 mg PO Q4H PRN PRN Reason: Pain Stop: 03/06/24 23:04 Last Admin: 02/22/24 09:33 Dose: 5 mg Polyethylene Glycol (Polyethylene (Miralax) 17 Gm Pack) 17 gm PO DAILY PRN PRN Reason: laxative effect Stop: 03/23/24 01:34 (3) Urinary tract infection Hematuria presence: with hematuria Urinary tract infection type: site unspecified Qualified Code(s): N39.0 - Urinary tract infection, site not specified; R31.9 - Hematuria, unspecified (4) Fall Encounter type: initial encounter Qualified Code(s): W19.XXXA - Unspecified fall, initial encounter (5) Contusion of knee, left Encounter type: initial encounter Qualified Code(s): S80.02XA - Contusion of left knee, initial encounter
[2024-02-22] MEDS: VANCOMYCIN HCL 1,000 MG in SODIUM CHLORIDE 0.9% 250 ML IV SCH (16:21)
--- NOTE | 2024-02-22 20:45 | Orthopedic Consultation ---
Date of Service February 22, 2024 Assessment & Plan (1) S/P TKR (total knee replacement): (2) Effusion, left knee: Plan Patient admitted with elevated white blood cell count, symptomatic chills, urinary tract infection, and left knee effusion. Obvious concern is to rule out periprosthetic knee infection. The effusion was aspirated today at the bedside and sent to laboratory for analysis. Will wait for cell count, crystal analysis, and culture results to direct further care. She may be weightbearing and range of motion as tolerated to the knee. She can use ice as needed for pain control. Please keep n.p.o. after midnight while we await cell count results. History of Present Illness Reason for Consultation: Left knee pain and swelling Requesting Physician: . Attending Physician: Nilam Gilman MD 88-year-old female admitted to [facility] the ER due to progressive left knee pain and difficulty walking. She had a fall about last week into the garbage can. She had injured her shoulder back and her ribs. She is having increasing back pain. She also notes some chills at home. Her outpatient blood work showed an elevated white blood cell count, so she was sent to the ER because of the progressive knee pain. ER and hospitalist workup revealed an effusion of the knee on CT scan. No fractures of concern. The patient reports that the left total knee arthroplasty was performed about 15 years ago at [facility] in [place]. She has had no issues with that knee since the arthroplasty. She reports there is pain at the knee when she tries to move it and put weight on it. The pain radiates towards her foot. She noticed some redness on the top of her foot. Allergies Allergy/AdvReac Type Severity Reaction Status Date / Time celecoxib Allergy Intermediate shaking Unverified 02/21/24 21:17 sensations erythromycin base Allergy Intermediate ABDOMINAL Verified 02/21/24 21:17 PAIN latex Allergy Intermediate dermatitis Unverified 02/21/24 21:17 Penicillins Allergy Intermediate SWELLING Verified 02/21/24 21:17 Sulfa (Sulfonamide Allergy Intermediate SWELLING Verified 02/21/24 21:17 Antibiotics) NARCOTICS Allergy Intermediate PAIN, Uncoded 02/21/24 21:17 SHAKES, VOMITING Home Medications Medication Instructions Recorded Confirmed Type aspirin 81 mg chewable tablet 81 mg PO HS 12/17/22 02/22/24 History atorvastatin 20 mg tablet (Lipitor) 20 mg PO HS 12/17/22 02/22/24 History calcium-magnesium 750 mg-465 mg 1 tab PO BID 12/17/22 02/22/24 History tablet cholecalciferol (vitamin D3) 25 50 mcg PO DAILY 12/17/22 02/22/24 History mcg (1,000 unit) capsule levothyroxine 50 mcg tablet 50 mcg PO DAILY 12/17/22 02/22/24 History (Synthroid) metoprolol succinate 100 mg 100 mg PO DAILY 12/17/22 02/22/24 History tablet,extended release 24 hr (Toprol XL) docusate sodium 100 mg capsule 100 mg PO BID #30 caps 12/21/22 02/22/24 Rx losartan 50 mg tablet 100 mg (2 x 50 mg) PO QAM #60 tabs 12/21/22 02/22/24 Rx polyethylene glycol 3350 17 gram 17 g PO DAILY PRN laxative effect 12/21/22 02/22/24 Rx oral powder packet (Miralax) #30 ea amlodipine 2.5 mg tablet 0 mg PO DAILY 02/22/24 02/22/24 History clindamycin HCl 300 mg capsule 300 mg PO DIRECTED PRN Other 02/22/24 02/22/24 History Past Med/Surg History Problem List (Updated 02/22/24 @ 20:43 by Shane Joyce MD) Effusion, left knee Sepsis Hypertensive crisis Urinary tract infection (Acute) Contusion of knee, left (Acute) Contusion of right chest wall (Acute) Acute hip pain (Acute) Shoulder tendonitis (Acute) Acute shoulder pain (Acute) Fall (Acute) Hyponatremia (Acute) Pelvic fracture (Acute) Conjunctivitis (Acute) Upper respiratory infection (Acute) HTN (hypertension) (Chronic) HTN (hypertension) (Chronic) Heart disease (Chronic) Cancer (Chronic) Cellulitis (Acute) Wound infection (Acute) Social History Smoking Status: Never smoker Hx Alcohol Use: Yes Alcohol type: wine Hx Substance Use: No Preferred Language: Danish Communication Ability: Effective Director Of Cardiac Cath Lab Required: No Beliefs That Will Affect Care: None Current Living Situation: Alone Current Living Situation Comment: Lives in home by herself Feels Safe at Home: Yes Assistive Devices: Cane and Walker Review of Systems All systems reviewed & are unremarkable except as noted in HPI & below. Physical Exam Left knee: She has a healed anterior incision. There is no particular erythema about the knee but there is warmth to the touch. There is mild erythema of the dorsum of her foot. No particular edema about the foot. She is diffusely and exquisitely tender about the knee and tibia down to the foot. She is able to perform a straight leg raise with gentle assistance. She is irritable and painful with attempts to bend the knee but she gets to about 60 degrees. There is a palpable effusion. Constitutional WD/WN, vitals as above Respiratory normal respiratory effort; no respiratory distress Cardiovascular Extremities: normal capillary refill; no edema Chest (Breasts) Chest: normal inspection of chest Skin no rashes, warm and dry Psychiatric A+Ox3, euthymic affect Results & Data Results & Data Laboratory Results H & H 02/21/24 02/22/24 Range/Units 16:00 05:18 Hgb 11.3 L 9.7 L (12.0-16.0) g/dl Hct 35.1 L 29.9 L (37.0-47.0) % Coagulation 02/21/24 02/21/24 Range/Units 16:00 18:50 INR Cancelled 0.9 Microbiology 02/21/24 20:42 Urine Culture - Preliminary Urine,Clean Catch Gram negative bacilli Laboratory Tests 12/18/22 02/21/24 02/21/24 02:59 16:00 16:00 WBC 5.57 Plt Count 427 H Neut # (Auto) 17.03 H ESR Hemoglobin A1c C-Reactive Protein 02/21/24 02/21/24 02/22/24 16:00 23:30 05:18 WBC 19.36 H 15.59 H Plt Count Neut # (Auto) ESR Hemoglobin A1c 6.3 H C-Reactive Protein 02/22/24 02/22/24 02/22/24 05:18 05:18 05:18 WBC Plt Count 351 Neut # (Auto) 12.46 H ESR 93 H Hemoglobin A1c C-Reactive Protein 33.17 H Diagnostic Findings Left knee x-rays from 02/20 include 2 views. These AP and lateral views show a well-fixed knee arthroplasty. No evidence of loosening. CT scan of the lower extremity from 02/20 shows no fractures or implant loosening. There is an effusion. PG Care Time/CCT Total # of Minutes Spent Total Time Spent with Patient: Total time spent is greater than 50% in coordination of care (as documented) at patient's floor/unit and/or counseling patient: Coding Level of Care Code 75725 IN/OBS CONSULT LVL 4,60M Diagnoses S/P TKR (total knee replacement) Z96.659 Effusion, left knee M25.462
[2024-02-22] MEDS: LIDOCAINE 2%/EPINEPHRINE 1:200,000 20 ML PF INFIL ONE (21:00)
[2024-02-22] MEDS: cefTRIAXone SODIUM 2,000 MG/50 ML BAG IV SCH (21:47)
[2024-02-22 21:49] LABS: Appearance Synovial Fluid Cloudy; Color Synovial Fluid Yellow; Mononuclear WBC Synovial 6.6 %; Polynuclear WBC Synovial 93.4 %; RBC Synovial Fluid Auto 5000 /uL; Source Synovial Fluid Left Knee; WBC Synovial Fluid Auto 22455 /ul (0-200)
[2024-02-22] MEDS: ASPIRIN 81 MG CHEW PO SCH (21:49)
[2024-02-22] MEDS: ATORVASTATIN 20 MG TAB PO SCH (21:49)
--- NOTE | 2024-02-22 22:21 | Electrocardiogram Report ---
Test Reason : Blood Pressure : */* mmHG Vent. Rate : 97 BPM Atrial Rate : 97 BPM P-R Int : 170 ms QRS Dur : 92 ms QT Int : 334 ms P-R-T Axes : * -28 144 degrees QTcB Int : 424 ms Normal sinus rhythm Incomplete right bundle branch block Left ventricular hypertrophy with repolarization abnormality Cannot rule out Septal infarct , age undetermined Abnormal ECG No previous ECGs available Confirmed by Casey Ivan ([id number]) on 02/22/2024 10:20:43 PM Referred By: REFERRED SELF Confirmed By: Casey Ivan
[2024-02-23 06:24] LABS: Basophils # (auto) 0.02 K/uL (0.00-0.20); Basophils % (auto) 0.1 %; Eosinophils # (auto) 0.04 K/uL (0.00-0.50); Eosinophils % (auto) 0.3 %; Hematocrit (blood only) 31.8 % (37.0-47.0); Hemoglobin 10.2 g/dl (12.0-16.0); Immature Granulocytes % (auto) 0.7 %; Lymphocytes % (auto) 7.1 %; Mean Corpuscular Hemoglobin 31.3 pg (25.0-34.0); Mean Corpuscular Hgb Conc 32.1 g/dL (32.0-36.0); Mean Corpuscular Volume 97.5 fL (80.0-100.0); Mean Platelet Volume 9.1 fL (9.4-12.4); Monocytes # (auto) 1.39 K/uL (0.11-0.59); Monocytes % (auto) 9.9 %; Neutrophils # (auto) 11.51 K/uL (1.40-6.50); Neutrophils % (auto) 81.9 %; Platelet Count 370 K/uL (130-400); RDW Coefficient of Variation 11.7 % (11.5-14.5); RDW Standard Deviation 42.4 fL (36.4-46.3); Red Blood Count 3.26 M/uL (4.20-5.40); White Blood Count 14.06 K/ul (4.8-10.8)
[2024-02-23 06:35] LABS: BUN Creatinine Ratio 18.9 (10-20); Calcium 9.1 mg/dl (8.6-10.3); Creatinine Clr Calc Pharmacy 38.9 ml/min; Est GFR (African American) 62.9 ml/min; Est GFR (Non-African American) 54.2 ml/min; Potassium 4.1 mmol/L (3.5-5.1)
--- NOTE | 2024-02-23 09:14 | Orthopedic Progress Note ---
Date of Service February 23, 2024 Assessment & Plan (1) S/P TKR (total knee replacement): (2) Effusion, left knee: Plan Left knee periprosthetic effusion with less than 1 week of symptoms. Gram stain shows gram-positive cocci and elevated WBC. Concern for periprosthetic infection. May eat today. Will discuss with arthroplasty partners potential need for irrigation and debridement with polyethylene exchange. This is a major operation to be considered. Will need medical records from [facility] to determine the total knee arthroplasty implant that was utilized 15 years ago. I have reached out to [facility] on-call and will request records transfer. With aspiration obtained already, continue empiric antibiotics. Subjective Reports that her knee pain is somewhat improved since the drainage yesterday. Denies nausea/vomiting/chills. Understands that it might be infected. Review of Systems All systems reviewed & are unremarkable except as noted in HPI & below. Physical Exam LLE: No overall change. No significant reaccumulation of fluid. Able to form straight leg raise is more comfortable range of motion Constitutional WD/WN, vitals as above no acute distress and not intoxicated appearing Respiratory normal respiratory effort; no labored breathing Cardiovascular Extremities: normal capillary refill Results & Data Results & Data Laboratory Results Laboratory Tests 02/23/24 05:52 WBC 14.06 H Neut # (Auto) 11.51 H Gram Stain Final 02/22/24-2248 Gram Stain Result Many WBCs Seen Few Gram Positive Cocci Diagnostic Findings . PG Care Time/CCT Total # of Minutes Spent Total Time Spent with Patient: Total time spent is greater than 50% in coordination of care (as documented) at patient's floor/unit and/or counseling patient: Coding Level of Care Code 11249 SUB INP/OBS CARE 3/50MIN Diagnoses S/P TKR (total knee replacement) Z96.659 Effusion, left knee M25.462
--- NOTE | 2024-02-23 10:00 | Procedure Note ---
Procedure Note Date of Service February 22, 2024 Left knee aspiration: The purpose, technique, expectations, and risk of knee aspiration were explained to the patient. She was agreeable to proceed. Nursing staff was present for the discussion and procedure. The superior lateral portal of the left knee was prepped with alcohol and iodine. The skin was then infused with 3 cc of 1% lidocaine with epinephrine. This was allowed to take effect. The skin was prepped again with ChloraPrep. Using sterile technique, and an 18-gauge needle, 32 cc of opaque yellow thin synovial fluid was easily obtained. Site was dressed with a gauze and a Band- Aid. She tolerated the procedure well. Specimen was sent for laboratory analysis. Coding Additional Codes Date of Service (PG.SURGERY)
--- NOTE | 2024-02-23 12:14 | Electrocardiogram Report ---
Test Reason : Blood Pressure : */* mmHG Vent. Rate : 108 BPM Atrial Rate : 108 BPM P-R Int : 186 ms QRS Dur : 94 ms QT Int : 326 ms P-R-T Axes : 75 -24 72 degrees QTcB Int : 436 ms Sinus tachycardia with Premature atrial complexes Otherwise normal ECG When compared with ECG of 21-Feb-2024 18:22, Premature atrial complexes are now Present Incomplete right bundle branch block is no longer Present Minimal criteria for Septal infarct are no longer Present Confirmed by Tatiana Funez (Amado) on 02/23/2024 9:28:22 AM Referred By: REFERRED SELF Confirmed By: Tatiana Funez
[2024-02-23] MEDS: MoRPHine SULFATE 2 MG/ML CARP IV PRN (14:53)
--- NOTE | 2024-02-23 15:56 | Hospitalist Progress Note ---
Date of Service February 23, 2024 Assessment & Plan (1) Hypertensive crisis: Plan: Secondary to discomfort Blood pressure was noted to be very high on admission with systolic more than 199 Likely secondary to multiple factors including pain and anxiety Has been getting amlodipine, losartan and metoprolol to control the blood pressure Seems to be towards control now Blood pressure remains stable minimally high at 150/87 Will monitor in the hospital Troponin elevation secondary to illness and uncontrolled blood pressure Doubt any ACS Chronic diastolic heart failure (EF 70%, TTE 2022), patient on the dry side Valvular heart disease (mild to moderate , TTE 2022) Cardiac assessment History of chronic diastolic heart failure with EF of 70% on TTE in 2022 and also mild to moderate AAS but no significant aortic stenosis She denies any symptoms of chest pain, palpitation or shortness of breath with usual exertion Her EKG remains unremarkable and mild troponin elevation is secondary to stress due to very high blood pressure at presentation She does not have any increased risk related to cardiac condition of proposed surgery given with stable cardiac condition No contraindication for proposed surgery tomorrow She will need to have her beta-mignon taken in the morning of surgery (2) Septic arthritis of knee, left: Plan: Met sepsis criteria on admission Multifactorial : Complicated UTI Left knee joint/LLE cellulitis- to rule out septic arthritis Blood cultures have been taken Has been on intravenous ceftriaxone and vancomycin for now Status post joint aspiration and the fluid showed a few gram-positive cocci and fluid WBC of 22,000 455 suggestive of septic arthritis Appreciate Ortho input and recommendation for proposed surgery of Left knee washout tomorrow (3) Sepsis: (4) Urinary tract infection: Plan: Urine culture is positive for infection with E. coli which is pansensitive (5) Fall: Plan: Recent fall on Sunday without any loss of consciousness Since that time she has had multiple x-rays including hip, rib, shoulder, foot, knee, tibia and fibula, and lately lower extremity CT No evidence of fractures identified Will get PT and OT evaluation on improvement (6) Contusion of knee, left: Plan: History of left knee prosthesis Has been complaining of more pain following the fall and the knee joint Knee joint is acutely swelled with increasing local temperature and also increasing pain with movement CT of the left knee joint showed moderate-sized knee joint effusion measuring 1.7 cm AP by 5.7 cm transverse with slight rim enhancement. 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 SCDs Re: Possible procedure Recommend pharmacologic anticoagulation with Lovenox 40 mg subcutaneous daily once bleeding risk is deemed to be minimal and negligible pending Orthopedics evaluation. Full code Patient daughter requesting updates providers. Ms. Olya Ramirez, contact #[phone].- discussed with the daughter and other family member Admission and Anticipated Discharge Date Admission Date: February 21, 2024 Subjective 02/22/2024 The patient was seen and examined in emergency room in presence of the family members She has been complaining of pain in multiple areas following a fall on Sunday last Also noted to have very high blood pressure on admission She has been feeling little better since admission 02/23/2024 The patient was seen and examined in telemetry unit She is free from any pain at rest but any movement causes pain in the left knee mainly Denies any chest pain, shortness of breath or palpitation No fever and or chills and does not have any nausea and/or vomiting Review of Systems Review of Systems: all systems reviewed and are unremarkable except as noted below Physical Exam Physical Exam: lying in bed without any apparent distress Constitutional: + ill appearing and average body habitus Eyes: PERRL, conjunctivae normal, anicteric sclerae ENMT: external ear and nose normal, oropharynx normal Neck: trachea midline, no thyromegaly Respiratory: no respiratory distress Auscultation: lungs clear to auscultation bilaterally Cardiovascular: Rate/Rhythm: regular rate and regular rhythm; not tachycardic Heart Sounds: normal S1, normal S2 and + murmur Extremities: + edema ( trace edema bilaterally) Gastrointestinal (Abdomen): Inspection/Auscultation: normal bowel sounds; abdomen not distended Percussion/Palpation: abdomen soft; abdomen nontender Musculoskeletal: Knee: + knee abnormal to inspection (Left knee is swollen with effusion, redness and tenderness) Neurologic: normal touch/pain/proprioception and moves all extremities; no focal motor deficits Psychiatric: A+Ox3, euthymic affect Lymphatic: no cervical or axillary lymphadenopathy Results & Data Results & Data Vital Signs (Past 12 Hours) Vital Signs Temp Pulse Resp BP Pulse Ox O2 Del Method 02/23/24 11:15 36.9 C 105 H 18 150/87 H 95 Room Air 02/23/24 07:29 36.9 C 109 H 18 168/56 H 93 Room Air 02/23/24 04:05 36.9 C 111 H 18 152/80 H 95 Room Air Laboratory Results Short CBC 02/23/24 Range/Units 05:52 WBC 14.06 H (4.8-10.8) K/ul Hgb 10.2 L (12.0-16.0) g/dl Hct 31.8 L (37.0-47.0) % Plt Count 370 (130-400) K/uL BMP 02/23/24 05:52 Sodium 130 L Potassium 4.1 Chloride 99 Carbon Dioxide 23 BUN 18 Creatinine 0.95 Glucose 123 H Calcium 9.1 Medications Administered Current Inpatient Medications Acetaminophen (Acetaminophen 325 Mg Tab) 650 mg PO QID PRN PRN Reason: pain/fever Stop: 03/22/24 23:04 Amlodipine Besylate (Amlodipine Besylate 5 Mg Tab) 2.5 mg PO DAILY TIM Stop: 03/23/24 08:59 Last Admin: 02/23/24 07:57 Dose: 2.5 mg Aspirin (Aspirin 81 Mg Chew) 81 mg PO HS TIM Stop: 03/23/24 20:59 Last Admin: 02/22/24 21:49 Dose: 81 mg Atorvastatin Calcium (Atorvastatin 20 Mg Tab) 20 mg PO HS TIM Stop: 03/23/24 20:59 Last Admin: 02/22/24 21:49 Dose: 20 mg Docusate Sodium (Docusate Sodium 100 Mg Cap) 100 mg PO BID TIM Stop: 03/23/24 08:59 Last Admin: 02/23/24 07:59 Dose: 100 mg Ceftriaxone Sodium (Rocephin) 2,000 mg in 50 mls @ 100 mls/hr IV Q24H TIM Stop: 03/03/24 21:59 Last Infusion: 02/22/24 22:20 Dose: Infused Promethazine HCl (Phenergan) 6.25 mg in 50.25 mls @ 201 mls/hr IV Q6H PRN PRN Reason: Nausea And Vomiting Stop: 03/22/24 23:04 Vancomycin HCl 1,000 mg/ (Sodium Chloride) 270 mls @ 200 mls/hr IV Q24H TIM Stop: 04/04/24 13:59 Last Infusion: 02/23/24 15:10 Dose: Infused Levothyroxine Sodium (Levothyroxine Sodium 50 Mcg Tablet) 50 mcg PO DAILYBB [facility] Stop: 03/23/24 06:29 Last Admin: 02/23/24 06:28 Dose: 50 mcg Losartan Potassium (Losartan Potassium 50 Mg Tab) 100 mg PO QAM [facility] Stop: 03/23/24 08:59 Last Admin: 02/23/24 07:58 Dose: 100 mg Metoprolol Succinate (Metoprolol Succ 50mg Ext Rel Tab) 100 mg PO DAILY [facility] Stop: 03/23/24 08:59 Last Admin: 02/23/24 07:58 Dose: 100 mg Miscellaneous Information (Vancomycin Consult Active) 1 each N/A UD PRN PRN Reason: Consult Stop: 03/23/24 01:20 Morphine Sulfate (Morphine Sulfate 2 Mg/Ml Carp) 2 mg IV Q3H PRN PRN Reason: Pain Stop: 03/06/24 23:04 Last Admin: 02/23/24 14:53 Dose: 2 mg Oxycodone HCl (Oxycodone Hcl Ir 5 Mg Tab (Immediate Release)) 5 mg PO Q4H PRN PRN Reason: Pain Stop: 03/06/24 23:04 Last Admin: 02/23/24 13:32 Dose: 5 mg Polyethylene Glycol (Polyethylene (Miralax) 17 Gm Pack) 17 gm PO DAILY PRN PRN Reason: laxative effect Stop: 03/23/24 01:34 (4) Urinary tract infection Hematuria presence: with hematuria Urinary tract infection type: site unspecified Qualified Code(s): N39.0 - Urinary tract infection, site not specified; R31.9 - Hematuria, unspecified (5) Fall Encounter type: initial encounter Qualified Code(s): W19.XXXA - Unspecified fall, initial encounter (6) Contusion of knee, left Encounter type: initial encounter Qualified Code(s): S80.02XA - Contusion of left knee, initial encounter
--- NOTE | 2024-02-23 15:59 | Communication Note ---
Date of Service: February 23, 2024 Please give metoprolol before going to the OR tomorrow Dr Donte chávez
[2024-02-23] MEDS: SODIUM CHLORIDE 0.9% 1,000 ML IV SCH (16:44)
[2024-02-24 05:10] LABS: Basophils # (auto) 0.03 K/uL (0.00-0.20); Basophils % (auto) 0.2 %; Eosinophils # (auto) 0.08 K/uL (0.00-0.50); Eosinophils % (auto) 0.6 %; Hematocrit (blood only) 27.3 % (37.0-47.0); Hemoglobin 9.1 g/dl (12.0-16.0); Immature Granulocytes # (auto) 0.14 K/uL (0.01-0.20); Lymphocytes # (auto) 1.22 K/uL (1.20-3.40); Lymphocytes % (auto) 9.1 %; Mean Corpuscular Hemoglobin 31.4 pg (25.0-34.0); Mean Corpuscular Hgb Conc 33.3 g/dL (32.0-36.0); Mean Corpuscular Volume 94.1 fL (80.0-100.0); Mean Platelet Volume 8.9 fL (9.4-12.4); Monocytes # (auto) 1.35 K/uL (0.11-0.59); Neutrophils # (auto) 10.65 K/uL (1.40-6.50); Neutrophils % (auto) 79.1 %; Platelet Count 397 K/uL (130-400); RDW Coefficient of Variation 11.8 % (11.5-14.5); RDW Standard Deviation 40.6 fL (36.4-46.3); White Blood Count 13.47 K/ul (4.8-10.8)
[2024-02-24 05:16] LABS: BUN Creatinine Ratio 20.8 (10-20); Calcium 8.8 mg/dl (8.6-10.3); Creatinine Clr Calc Pharmacy 38.5 ml/min; Est GFR (African American) 62.1 ml/min; Est GFR (Non-African American) 53.6 ml/min; Magnesium 1.4 mg/dl (1.7-2.4)
[2024-02-24] MEDS: MAGNESIUM SULFATE / D5W 1 GM/100 ML BAG IV SCH (05:57)
[2024-02-24] MEDS ORDERED: fentaNYL citrate PF 100 MCG/2 ML VIAL ONE (07:22)
[2024-02-24] MEDS ORDERED: ROCURONIUM BROMIDE 10 MG/ML 5 ML VIAL IV ONE (07:22)
[2024-02-24] MEDS ORDERED: PROPOFOL IV EMULSION 10 MG/ML 20 ML VIAL IV ONE (07:22)
--- NOTE | 2024-02-24 07:24 | History & Physical Bridge Note ---
Date of Service February 24, 2024 History & Physical Bridge Note I have examined the patient, reviewed the History & Physical and in the interval since the performance of the History & Physical I have noted the following changes of clinical significance: no changes noted
[2024-02-24] MEDS ORDERED: ATROPINE SULFATE 0.1 MG/ML 10ML SYR IV PRN (07:34)
[2024-02-24] MEDS ORDERED: HYDROmorphone INJ 1 MG/ML SYRINGE IV PRN (07:34)
[2024-02-24] MEDS ORDERED: ePHEDrine sulfate 50 MG/ML AMP IV PRN (07:34)
[2024-02-24] MEDS ORDERED: ONDANSETRON INJ 2 MG/ML 2 ML VIAL IV PRN (07:34)
[2024-02-24] MEDS ORDERED: fentaNYL citrate PF 100 MCG/2 ML VIAL IV PRN (07:34)
--- NOTE | 2024-02-24 07:34 | Anesthesiology Consultation ---
Date of Service February 24, 2024 Assessment & Plan ASA ASA3 Proposed Anesthesia Anesthesia Type: General Risk / Benefits Reviewed With: PT / POA / Parent / Guardian, Accepts Plan and Informed Consent Obtained History Surgery Operation Date: 02/24/24 07:30 Proposed Procedures p Irrigation and Debridement Left Total Knee, Poly Exchange - Yimi Dexter MD Height/Weight Height: 5 ft 3 in Weight: 66.9 kg Allergies Allergy/AdvReac Type Severity Reaction Status Date / Time celecoxib Allergy Intermediate shaking Unverified 02/21/24 21:17 sensations erythromycin base Allergy Intermediate ABDOMINAL Verified 02/21/24 21:17 PAIN latex Allergy Intermediate dermatitis Unverified 02/21/24 21:17 Penicillins Allergy Intermediate SWELLING Verified 02/21/24 21:17 Sulfa (Sulfonamide Allergy Intermediate SWELLING Verified 02/21/24 21:17 Antibiotics) NARCOTICS Allergy Intermediate PAIN, Uncoded 02/21/24 21:17 SHAKES, VOMITING Medications Home Medications Medication Instructions Recorded Confirmed Last Taken aspirin 81 mg chewable tablet 81 mg PO HS 12/17/22 02/22/24 Unknown atorvastatin 20 mg tablet (Lipitor) 20 mg PO HS 12/17/22 02/22/24 Unknown calcium-magnesium 750 mg-465 mg 1 tab PO BID 12/17/22 02/22/24 Unknown tablet cholecalciferol (vitamin D3) 25 50 mcg PO DAILY 12/17/22 02/22/24 Unknown mcg (1,000 unit) capsule levothyroxine 50 mcg tablet 50 mcg PO DAILY 12/17/22 02/22/24 Unknown (Synthroid) metoprolol succinate 100 mg 100 mg PO DAILY 12/17/22 02/22/24 Unknown tablet,extended release 24 hr (Toprol XL) docusate sodium 100 mg capsule 100 mg PO BID #30 caps 12/21/22 02/22/24 Unknown losartan 50 mg tablet 100 mg (2 x 50 mg) PO QAM #60 tabs 12/21/22 02/22/24 Unknown polyethylene glycol 3350 17 gram 17 g PO DAILY PRN laxative effect 12/21/22 02/22/24 Unknown oral powder packet (Miralax) #30 ea amlodipine 2.5 mg tablet 0 mg PO DAILY 02/22/24 02/22/24 Unknown clindamycin HCl 300 mg capsule 300 mg PO DIRECTED PRN Other 02/22/24 02/22/24 Unknown Active Medications Generic Name Dose Route Start Last Admin Trade Name Noelle PRN Reason Stop Dose Admin Amlodipine Besylate 2.5 mg 02/22/24 09:00 02/23/24 07:57 Amlodipine Besylate 5 Mg Tab PO 03/23/24 08:59 2.5 mg DAILY TIM Administration Aspirin 81 mg 02/22/24 21:00 02/23/24 21:02 Aspirin 81 Mg Chew PO 03/23/24 20:59 81 mg HS TIM Administration Atorvastatin Calcium 20 mg 02/22/24 21:00 02/23/24 21:02 Atorvastatin 20 Mg Tab PO 03/23/24 20:59 20 mg HS TIM Administration Docusate Sodium 100 mg 02/22/24 09:00 02/23/24 21:02 Docusate Sodium 100 Mg Cap PO 03/23/24 08:59 100 mg BID TIM Administration Ceftriaxone Sodium 2,000 mg in 50 mls @ 100 mls/hr 02/22/24 22:00 02/23/24 21:34 Rocephin IV 03/03/24 21:59 Infused Q24H TIM Infusion Vancomycin HCl 1,000 mg/ 270 mls @ 200 mls/hr 02/22/24 14:00 02/23/24 15:10 Sodium Chloride IV 04/04/24 13:59 Infused Q24H TIM Infusion Sodium Chloride 1,000 mls @ 70 mls/hr 02/23/24 16:00 02/24/24 05:57 Nss IV 02/25/24 10:51 70 mls/hr .[id number] TIM Administration Magnesium Sulfate/Dextrose 1 gm in 100 mls @ 50 mls/hr 02/24/24 05:30 02/24/24 05:57 Magnesium Sulfate / D5w IV 02/24/24 09:29 50 mls/hr Q2H TIM Administration Levothyroxine Sodium 50 mcg 02/22/24 06:30 02/24/24 05:58 Levothyroxine Sodium 50 Mcg Tablet PO 03/23/24 06:29 50 mcg DAILYBB TIM Administration Losartan Potassium 100 mg 02/22/24 09:00 02/23/24 07:58 Losartan Potassium 50 Mg Tab PO 03/23/24 08:59 100 mg QAM TIM Administration Metoprolol Succinate 100 mg 02/22/24 09:00 02/24/24 06:37 Metoprolol Succ 50mg Ext Rel Tab PO 03/23/24 08:59 100 mg DAILY TIM Administration Morphine Sulfate 2 mg 02/21/24 23:05 02/23/24 19:50 Morphine Sulfate 2 Mg/Ml Carp IV 03/06/24 23:04 2 mg Q3H PRN Administration Pain Oxycodone HCl 5 mg 02/21/24 23:05 02/23/24 21:02 Oxycodone Hcl Ir 5 Mg Tab (Immediate Release) PO 03/06/24 23:04 5 mg Q4H PRN Administration Pain NPO Date Last Intake of Fluids: 02/24/24 Time Last Intake of Fluids: 06:30 Last Intake of Fluids Comment: sip with meds Date Last Intake of Solids: 02/23/24 Time Last Intake of Solids: 18:00 Exercise / Class Metabolic Activity II 4-5 Yardwork/Stairs/Walk up hill Past Anesthesia History No Hx of Anesthesia Complications and No Family Hx of Anesthesia Complications History of PONV No Hx of PONV and No Hx of Motion Sickness Social History Smoking Status: Never smoker Hx Alcohol Use: Yes Alcohol type: wine alcohol intake frequency: holidays/special occasions only Hx Substance Use: No substance use type: does not use Review of Systems denies fever/cough/ colds/ chest pain/ SOB/ MONIQUE denies MONIQUE Physical Exam Vital Signs Last Vital Signs Temp 37.1 C 02/24/24 03:19 Pulse 97 H 02/24/24 03:19 Resp 22 02/24/24 03:19 BP 172/82 H 02/24/24 03:19 Pulse Ox 92 02/24/24 03:19 O2 Del Method Room Air 02/24/24 03:19 O2 Flow Rate 2 02/22/24 04:30 ENMT Mouth: + dentures; no TMJ abnormality and no dentition abnormality Thyromental Distance: > or= 3.5 Finger Breadths Mallampati Class: II Neck neck extension not limited Respiratory normal respiratory effort; no respiratory distress Auscultation: lungs clear to auscultation bilaterally Cardiovascular Rate/Rhythm: regular rate and regular rhythm Neurologic moves all extremities Psychiatric Orientation: alert and oriented x 3 Testing Laboratory Results 02/24/24 04:20 02/24/24 04:20 PT 10.3 Seconds (9.0-12.0) 02/21/24 18:50 INR 0.9 (0.9-1.1) 02/21/24 18:50 APTT 31 Seconds (21-31) 02/21/24 18:50 Hemoglobin A1c 6.3 % (4.5-5.6) H 02/21/24 23:30 Urine Color Yellow 02/21/24 20:42 Urine Appearance Cloudy (Clear) A 02/21/24 20:42 Urine pH 5.5 (4.5-7.5) 02/21/24 20:42 Ur Specific [place] 1.026 (1.000-1.030) 02/21/24 20:42 Urine Protein 2+ (Negative) H 02/21/24 20:42 Urine Glucose (UA) Negative (Negative) 02/21/24 20:42 Urine Ketones Trace (Negative) H 02/21/24 20:42 Urine Nitrite Positive (Negative) A 02/21/24 20:42 Ur Leukocyte Esterase 1+ (Negative) H 02/21/24 20:42 Urine WBC (Auto) 11-20 /hpf (0-5) H 02/21/24 20:42 Urine RBC (Auto) 0-2 /hpf (0-2) 02/21/24 20:42 U Hyaline Cast (Auto) 0-2 /lpf (0-2) 02/21/24 20:42 U Epithel Cells (Auto) 3-5 /hpf (0-2) H 02/21/24 20:42 Urine Bacteria (Auto) 4+ (None Seen) H 02/21/24 20:42 Blood Type B Positive 02/23/24 21:18 Antibody Screen NEGATIVE 02/23/24 21:18 02/21/24 23:19 Aerobic Blood Culture - Preliminary Blood No growth in Aerobic bottle after 48 hours. Anaerobic Blood Culture - Preliminary No growth in Anaerobic bottle after 48 hours. 02/21/24 23:31 Aerobic Blood Culture - Preliminary Blood No growth in Aerobic bottle after 48 hours. Anaerobic Blood Culture - Preliminary No growth in Anaerobic bottle after 48 hours. 02/22/24 Unknown Gram Stain - Final Joint Fluid,Knee Aerobic and Anaerobic Culture - Preliminary Pin-point growth present, reincubating. 02/21/24 20:42 Urine Culture - Final Urine,Clean Catch Escherichia coli 02/22/24 Unknown Fungal Smear - Final Joint Fluid,Knee
[2024-02-24] MEDS ORDERED: HYDROmorphone INJ 1 MG/ML SYRINGE ONE (08:14)
[2024-02-24] MEDS: DAKIN'S SOLN 0.5% FULL STRENGTH 473ML BTL EXT ONE (08:35)
[2024-02-24] MEDS: BUPIVACAINE/EPINEPHRINE 0.25% 1:200,000 30 ML VIAL ONE (08:43)
[2024-02-24] MEDS: BUPIVACAINE/EPINEPHRINE 0.5% MPF 1:200,000 30 ML VIAL ONE (08:43)
[2024-02-24] MEDS: TRANEXAMIC ACID / 0.7% NACL 1000MG/100ML BAG IV ONE (09:29)
[2024-02-24] MEDS: VANCOMYCIN HCL 1000MG/20ML VIAL ONE (09:30)
[2024-02-24] MEDS ORDERED: SUGAMMADEX SODIUM 200 MG/2 ML VIAL IV ONE (09:40)
--- NOTE | 2024-02-24 10:16 | Operative Report ---
PG Post Operative Report Pre & Post Diagnosis Operation Date: 02/24/24 07:30 Pre-Op Diagnosis: (1) Left infected total knee arthroplasty Post-Op Diagnosis: (1) left infected total knee arthroplasty I identified the patient and participated in the time-out.: Yes Procedure Operation Date: 02/24/24 07:30 Actual Procedures p Irrigation and Debridement Left Total Knee, Poly Exchange(Left)/DAIR Procedure- Yimi Dexter MD Surgeon Yimi Dexter MD Assistant Plant Control Operator Shane Joyce MD Estimated Blood Loss 50 Findings Consistent with Post-Op Diagnosis Specimens Left knee joint fluid sent for culture. Left knee synovium sent for tissue culture Anesthesia Type General Complications none Disposition Accompanied Patient To Recovery: No Indications The patient is an 88-year-old female who had her left knee replaced about 12 years ago at [facility]. She had a pretty difficult recovery but is done well over the past 11 years or so. Approximately 4 to 5 days ago she did have a stumbling episode and banged her knee. Since then her knee is got more swollen more painful. She brought the emergency room where her knee was aspirated which showed inflammatory infiltrate with a positive Gram stain. That she is growing some organisms on the initial culture. She does have a urinary tract infection but no other problems. She has had no problems with the knee replacement after recovery. She now is indicated for irrigation debridement and polyethylene exchange. Description of Procedure Operative implants consists of: 1. [place] triathlon size 11 mm post stabilized polyethylene insert. The patient was taken the op room, identified, placed on the operating table in the supine position. All contractors were appropriately padded. IV antibiotics had been provided in the medical ashley. She was getting vancomycin along with ceftriaxone. A general anesthetic was implemented. A Albarado catheter was placed in sterile fashion. A left joint was then placed in the left lower extremity was then scrubbed with Hibiclens, prepped with ChloraPrep and draped in usual sterile fashion. The left leg was elevated exsanguinated with use of an Esmarch and turn was plac ed at 300 mmHg. Medial parapatellar arthrotomy was completed. Some subperiosteal dissection was carried out medially. I did a complete synovectomy of the suprapatellar pouch along with the medial and lateral gutters. I did send some of the synovium for tissue culture. There is clearly an inflammatory of fluid but was not excessively purulent. I then irrigated the wound extensively. We flexed the knee. We subluxated the knee and remove the polyethylene. I then irrigated the wound extensively. I then irrigated the wound with 500 cc of Dakin solution. While doing this I did take a toothbrush and scrub the implants at fairly rigorously. I then irrigated this out. We then irrigated with hydrogen peroxide. I again scrubbed the implant surfaces and edges with toothbrush for mechanical debridement. I then irrigated this out. I then irrigated 1 more time with a dilute Betadine solution. We also used a toothbrush again to a scrub implants. Once this was complete I irrigated the wound with 3 additional liters of pulsatile lavage solution. I injected locally with 30 cc of half percent Marcaine with epinephrine. The tourniquet was then let down for tourniquet time 41 minutes. I then packed the wound with a Betadine soaked lap sponge. I then closed the skin loosely with #1 Prolene suture. The drapes were then taken down. I then reprepped and redraped the entire leg. A whole new set up was open. Gowns and gloves were all changed. The leg was then prepped with ChloraPrep. The left leg was then draped in a sterile fashion. The sutures were then removed. The Betadine soaked lap sponge was removed. Irrigated the wound extensively again. We then did another Betadine soak. We then trialed the knee and the 11 insert fit most appropriately. The permanent 11 insert was placed. I irrigated the wound extensively. The knee was well-balanced. The tourniquet was then let down for a second tourniquet time of 14 minutes. Hemostasis to reduce electrocautery. I did placed a gram of vancomycin in the wound. The extensor Metros then closed with #1 PDS suture in a [id number] fashion. Extensor Meclomen checked found to be intact and subcutaneous tissue then closed with 2 Dexon suture in a buried knot fashion skin was then closed with skin darian. Leg was then cleaned and dried and sterile dressing with Xeroform, 4 fours, sterile cast padding and Ryan bandage were applied. The patient then brought out of general esthesia and transferred to the recovery room in stable condition. The patient tolerated the procedure well and there were no complications. Shane Joyce was an periodicals library assistant during the surgery. His assistance was required for proper patient positioning, prepping and draping, surgical exposure, retraction, perform the technical details of the operation, closure of the incision site. I attest to the content of the Intraoperative Record and any orders documented therein. Any exceptions are noted below.
[2024-02-24] MEDS ORDERED: METOCLOPRAMIDE HCL INJ 5 MG/ML 2 ML VIAL IV PRN (11:19)
[2024-02-24] MEDS ORDERED: bisacodyL 10 MG SUPP PR PRN (11:19)
[2024-02-24] MEDS ORDERED: traMADol HCL 50 MG TABLET PO PRN (11:19)
[2024-02-24] MEDS ORDERED: ALUMINUM/MAGNESIUM SUSP 30 ML UDC PO PRN (11:19)
[2024-02-24] MEDS ORDERED: MAGNESIUM HYDROXIDE SUSP 30 ML UDC PO PRN (11:19)
[2024-02-24] MEDS ORDERED: NALOXONE HCL 0.4 MG/1 ML VIAL/CARP IV PRN (11:19)
[2024-02-24] MEDS ORDERED: HYDROmorphone INJ 0.5 MG/0.5 ML SYR IV PRN (11:19)
[2024-02-24] MEDS: KETOROLAC TROMETHAMINE 15 MG/ML VIAL IV SCH (11:49)
[2024-02-24] MEDS: SODIUM CHLORIDE 0.9% 1,000 ML IV SCH (11:50)
--- NOTE | 2024-02-24 11:57 | Anesthesiology Progress Note ---
Date of Service February 24, 2024 Anesthesia Post Procedure Vital Signs Vital Signs: Temp Pulse Resp BP Pulse Ox O2 Del Method O2 Flow Rate 02/24/24 11:00 36.4 C L 80 20 196/86 H 97 Nasal Cannula 2 02/24/24 10:35 36.5 C 77 14 192/86 H 96 Nasal Cannula 2 02/24/24 10:25 76 14 190/90 H 94 Nasal Cannula 2 02/24/24 10:15 82 16 203/95 H 99 Oxymask 3 02/24/24 10:04 36.4 C L 85 14 187/95 H 99 Oxymask 6 02/24/24 03:19 37.1 C 97 H 22 172/82 H 92 Room Air 02/23/24 22:57 37.4 C 100 H 20 149/77 H 93 Room Air 02/23/24 19:33 37.3 C 120 H 18 186/73 H 94 Room Air 02/23/24 19:00 Room Air Pain Intensity Left Knee: Pain Intensity: 3 Transfer of Care Handoff Completed per policy Notes Mental Status: alert / awake / arousable and participated in evaluation Patient Amnestic to Procedure: Yes Nausea / Vomiting: adequately controlled Pain: adequately controlled Airway Patency, RR, SpO2: stable & adequate BP & HR: stable & adequate Hydration State: stable & adequate Anesthetic Complications: no major complications apparent and Pt Satisfied with anesthetic care
[2024-02-24] MEDS: ACETAMINOPHEN 500 MG TAB PO SCH (14:17)
--- NOTE | 2024-02-24 14:35 | Hospitalist Progress Note ---
Date of Service February 24, 2024 Assessment & Plan (1) Septic arthritis of knee, left: Plan: Met sepsis criteria on admission Multifactorial : Complicated UTI Left knee joint/LLE cellulitis- to rule out septic arthritis Blood cultures have been taken Has been on intravenous ceftriaxone and vancomycin for now Status post joint aspiration and the fluid showed a few gram-positive cocci and fluid WBC of 22,000 455 suggestive of septic arthritis Appreciate Ortho input and recommendation for proposed surgery of Left knee washout tomorrow 02/24/2024 Status post left total knee poly exchange with irrigation and debridement Remains a little drowsy and denies any significant symptoms Management will be as per Ortho Will get ID consult for duration and kind of antibiotic (2) Hypertensive crisis: Plan: Secondary to discomfort Blood pressure was noted to be very high on admission with systolic more than 199 Likely secondary to multiple factors including pain and anxiety Has been getting amlodipine, losartan and metoprolol to control the blood pressure Seems to be towards control now Blood pressure remains stable minimally high at 150/87 Will monitor in the hospital Blood pressure has been very high and will give him hydralazine intravenously as needed to control blood pressure Troponin elevation secondary to illness and uncontrolled blood pressure Doubt any ACS Chronic diastolic heart failure (EF 70%, TTE 2022), patient on the dry side Valvular heart disease (mild to moderate , TTE 2022) Cardiac assessment History of chronic diastolic heart failure with EF of 70% on TTE in 2022 and also mild to moderate AAS but no significant aortic stenosis She denies any symptoms of chest pain, palpitation or shortness of breath with usual exertion Her EKG remains unremarkable and mild troponin elevation is secondary to stress due to very high blood pressure at presentation She does not have any increased risk related to cardiac condition of proposed surgery given with stable cardiac condition No contraindication for proposed surgery tomorrow She will need to have her beta-mignon taken in the morning of surgery (3) Sepsis: (4) Urinary tract infection: Plan: Urine culture is positive for infection with E. coli which is pansensitive (5) Fall: Plan: Recent fall on Sunday without any loss of consciousness Since that time she has had multiple x-rays including hip, rib, shoulder, foot, knee, tibia and fibula, and lately lower extremity CT No evidence of fractures identified Will get PT and OT evaluation on improvement (6) Contusion of knee, left: Plan: History of left knee prosthesis Has been complaining of more pain following the fall and the knee joint Knee joint is acutely swelled with increasing local temperature and also increasing pain with movement CT of the left knee joint showed moderate-sized knee joint effusion measuring 1.7 cm AP by 5.7 cm transverse with slight rim enhancement. 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 SCDs Re: Possible procedure Recommend pharmacologic anticoagulation with Lovenox 40 mg subcutaneous daily once bleeding risk is deemed to be minimal and negligible pending Orthopedics evaluation. Full code Patient daughter requesting updates providers. Ms. Olya Ramirez, contact #[phone].- discussed with the daughter and other family member Admission and Anticipated Discharge Date Admission Date: February 21, 2024 Subjective 02/22/2024 The patient was seen and examined in emergency room in presence of the family members She has been complaining of pain in multiple areas following a fall on Sunday last Also noted to have very high blood pressure on admission She has been feeling little better since admission 02/23/2024 The patient was seen and examined in telemetry unit She is free from any pain at rest but any movement causes pain in the left knee mainly Denies any chest pain, shortness of breath or palpitation No fever and or chills and does not have any nausea and/or vomiting 02/24/2024 The patient was seen and examined in telemetry unit She is a status post left knee irrigation and debridement, left total knee poly exchange Remains free of any pain at this time Denies any other significant symptoms Review of Systems Review of Systems: all systems reviewed and are unremarkable except as noted below Physical Exam Physical Exam: lying in bed without any apparent distress Constitutional: + ill appearing and average body habitus Eyes: PERRL, conjunctivae normal, anicteric sclerae ENMT: external ear and nose normal, oropharynx normal Neck: trachea midline, no thyromegaly Respiratory: no respiratory distress Auscultation: lungs clear to auscultation bilaterally Cardiovascular: Rate/Rhythm: regular rate and regular rhythm; not tachycardic Heart Sounds: normal S1, normal S2 and + murmur Extremities: + edema ( trace edema bilaterally) Gastrointestinal (Abdomen): Inspection/Auscultation: normal bowel sounds; abdomen not distended Percussion/Palpation: abdomen soft; abdomen nontender Musculoskeletal: Knee: + knee abnormal to inspection (Left knee is swollen with effusion, redness and tenderness) Neurologic: normal touch/pain/proprioception and moves all extremities; no focal motor deficits Psychiatric: A+Ox3, euthymic affect Lymphatic: no cervical or axillary lymphadenopathy Results & Data Results & Data Vital Signs (Past 12 Hours) Vital Signs Temp Pulse Pulse Resp BP Pulse Ox O2 Del Method 02/24/24 12:14 87 02/24/24 12:14 Nasal Cannula 02/24/24 11:49 82 20 202/82 H 97 Nasal Cannula 02/24/24 11:00 36.4 C L 80 20 196/86 H 97 Nasal Cannula 02/24/24 10:35 36.5 C 77 14 192/86 H 96 Nasal Cannula 02/24/24 10:25 76 14 190/90 H 94 Nasal Cannula 02/24/24 10:15 82 16 203/95 H 99 Oxymask 02/24/24 10:04 36.4 C L 85 14 187/95 H 99 Oxymask 02/24/24 03:19 37.1 C 97 H 22 172/82 H 92 Room Air O2 Flow Rate 02/24/24 12:14 02/24/24 12:14 2 02/24/24 11:49 2 02/24/24 11:00 2 02/24/24 10:35 2 02/24/24 10:25 2 02/24/24 10:15 3 02/24/24 10:04 6 02/24/24 03:19 (4) Urinary tract infection Hematuria presence: with hematuria Urinary tract infection type: site unspecified Qualified Code(s): N39.0 - Urinary tract infection, site not specified; R31.9 - Hematuria, unspecified (5) Fall Encounter type: initial encounter Qualified Code(s): W19.XXXA - Unspecified fall, initial encounter (6) Contusion of knee, left Encounter type: initial encounter Qualified Code(s): S80.02XA - Contusion of left knee, initial encounter
[2024-02-24] MEDS: TRANEXAMIC ACID / 0.7% NACL 1,000 MG/100 ML BAG IV SCH (16:42)
[2024-02-24] MEDS: ASCORBIC ACID 500 MG TAB PO SCH (16:43)
[2024-02-24] MEDS: SENNA 8.6 MG TAB PO SCH (21:04)
[2024-02-24] MEDS: ASPIRIN 81 MG ECTAB PO SCH (21:05)
[2024-02-24] MEDS: MAGNESIUM OXIDE 400 MG TAB PO SCH (21:06)
[2024-02-24] MEDS: CALCIUM CARBONATE 1250MG TAB PO SCH (21:06)
[2024-02-24] MEDS: DOCUSATE SODIUM 100 MG CAP PO SCH (21:08)
[2024-02-25 06:00] LABS: Basophils # (auto) 0.01 K/uL (0.00-0.20); Basophils % (auto) 0.1 %; Eosinophils # (auto) 0.03 K/uL (0.00-0.50); Eosinophils % (auto) 0.2 %; Hematocrit (blood only) 28.1 % (37.0-47.0); Hemoglobin 9.1 g/dl (12.0-16.0); Immature Granulocytes # (auto) 0.22 K/uL (0.01-0.20); Immature Granulocytes % (auto) 1.4 %; Lymphocytes # (auto) 1.04 K/uL (1.20-3.40); Lymphocytes % (auto) 6.6 %; Mean Corpuscular Hemoglobin 31.1 pg (25.0-34.0); Mean Corpuscular Hgb Conc 32.4 g/dL (32.0-36.0); Mean Corpuscular Volume 95.9 fL (80.0-100.0); Monocytes # (auto) 1.08 K/uL (0.11-0.59); Monocytes % (auto) 6.8 %; Neutrophils # (auto) 13.43 K/uL (1.40-6.50); Neutrophils % (auto) 84.9 %; Platelet Count 387 K/uL (130-400); RDW Coefficient of Variation 11.4 % (11.5-14.5); RDW Standard Deviation 40.4 fL (36.4-46.3); Red Blood Count 2.93 M/uL (4.20-5.40); White Blood Count 15.81 K/ul (4.8-10.8)
[2024-02-25 06:16] LABS: BUN Creatinine Ratio 19.8 (10-20); Calcium 8.9 mg/dl (8.6-10.3); Creatinine Clr Calc Pharmacy 33.4 ml/min; Est GFR (African American) 52.1 ml/min; Est GFR (Non-African American) 44.9 ml/min; Potassium 4.1 mmol/L (3.5-5.1)
[2024-02-25] MEDS: dexAMETHasone 10 MG in SYRINGE 0 ML IV SCH (08:45)
[2024-02-25] MEDS: MULTIVITAMIN TAB PO SCH (08:46)
[2024-02-25] MEDS: CHOLECALCIFEROL 25 MCG (1000 UNITS) TAB PO SCH (08:48)
--- NOTE | 2024-02-25 09:04 | Orthopedic Progress Note ---
Date of Service February 25, 2024 Assessment & Plan (1) Septic arthritis of knee, left: Pain seems reasonably controlled today. ID consult pending Will need PICC line for 6 weeks IV antibiotics. PT/OT wbat Subjective . POD #1 from left knee I & D, poly exchange. Pain reasonably controlled. Had more pain overnight and difficulty sleeping. Review of Systems All systems reviewed & are unremarkable except as noted in HPI & below. Physical Exam .alert and oriented. NAD Left leg: dressing intact. Able to dorsiflex/plantarflex. NVI Aspiration lab results show methicillin sensitive staph Results & Data Results & Data Laboratory Results . Diagnostic Findings . PG Care Time/CCT Total # of Minutes Spent Total Time Spent with Patient: Total time spent is greater than 50% in coordination of care (as documented) at patient's floor/unit and/or counseling patient: Coding Level of Care Code 99869 Post Operative Follow-Up Diagnoses Septic arthritis of knee, left M00.9
--- NOTE | 2024-02-25 10:59 | Pharmacy Report ---
Pharmacy PK ABX Note - Date of Service February 25, 2024 - Assessment and Plan Assessment 02/24 * Vancomycin level drawn this morning was 17.3. It is predicted that the AUC will be 606 at the current dosing. The vancomycin is to remain at 1000mg iv q 24 hours for now to insure penetration of the infected joint. Will continue to monitor and reassess upon finalization of the knee cultures. * Also still + leukocytosis today and afebrile. 02/21 88 year old F receiving vancomycin for treatment of possible septic arthritis and ceftriaxone for a complicated UTI. Pertinent microbiologic data includes: gram(-) bacilli growing in preliminary urine culture and blood culture is pendi ng. * + leukocytosis and afebrile Day # 5 of antimicrobial therapy. Plan Vancomycin * Maintenance dose: Continue vancomycin 1000 mg IV every 24 hours * Regimen is predicted to achieve AUC/JOSELITO slightly over 600 around the ninth dose of vancomycin. * Another trough level will be ordered in the next 3 days if vancomycin is continued. Pharmacy will continue to follow and will adjust dose/frequency as necessary. Thank you. Pharmacy has transitioned to AUC monitoring for vancomycin. AUC/JOSELITO is the preferred PK/PD target and is associated with decreased risk of nephrotoxicity compared to traditional trough targets.
--- NOTE | 2024-02-25 15:01 | Hospitalist Progress Note ---
Date of Service February 25, 2024 Assessment & Plan (1) Septic arthritis of knee, left: Plan: Met sepsis criteria on admission Multifactorial : Complicated UTI Left knee joint/LLE cellulitis- to rule out septic arthritis Blood cultures have been taken Has been on intravenous ceftriaxone and vancomycin for now Status post joint aspiration and the fluid showed a few gram-positive cocci and fluid WBC of 22,000 455 suggestive of septic arthritis Appreciate Ortho input and recommendation for proposed surgery of Left knee washout tomorrow 02/24/2024 Status post left total knee poly exchange with irrigation and debridement Remains a little drowsy and denies any significant symptoms Management will be as per Ortho Will get ID consult for duration and kind of antibiotic PICC line consent was taken Culture grew staph aureus MSSA Awaiting ID recommendation and duration of antibiotic (2) Hypertensive crisis: Plan: Secondary to discomfort Blood pressure was noted to be very high on admission with systolic more than 199 Likely secondary to multiple factors including pain and anxiety Has been getting amlodipine, losartan and metoprolol to control the blood pressure Seems to be towards control now Blood pressure remains stable minimally high at 150/87 Will monitor in the hospital Blood pressure has been very high and will give him hydralazine intravenously as needed to control blood pressure Blood pressure remains normal Troponin elevation secondary to illness and uncontrolled blood pressure Doubt any ACS Chronic diastolic heart failure (EF 70%, TTE 2022), patient on the dry side Valvular heart disease (mild to moderate , TTE 2022) Cardiac assessment History of chronic diastolic heart failure with EF of 70% on TTE in 2022 and also mild to moderate AAS but no significant aortic stenosis She denies any symptoms of chest pain, palpitation or shortness of breath with usual exertion Her EKG remains unremarkable and mild troponin elevation is secondary to stress due to very high blood pressure at presentation She does not have any increased risk related to cardiac condition of proposed surgery given with stable cardiac condition No contraindication for proposed surgery tomorrow She will need to have her beta-mignon taken in the morning of surgery (3) Sepsis: (4) Urinary tract infection: Plan: Urine culture is positive for infection with E. coli which is pansensitive (5) Fall: Plan: Recent fall on Sunday without any loss of consciousness Since that time she has had multiple x-rays including hip, rib, shoulder, foot, knee, tibia and fibula, and lately lower extremity CT No evidence of fractures identified Will get PT and OT evaluation on improvement (6) Contusion of knee, left: Plan: History of left knee prosthesis Has been complaining of more pain following the fall and the knee joint Knee joint is acutely swelled with increasing local temperature and also increasing pain with movement CT of the left knee joint showed moderate-sized knee joint effusion measuring 1.7 cm AP by 5.7 cm transverse with slight rim enhancement. 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 SCDs Re: Possible procedure Recommend pharmacologic anticoagulation with Lovenox 40 mg subcutaneous daily once bleeding risk is deemed to be minimal and negligible pending Orthopedics evaluation. Full code Patient daughter requesting updates providers. Ms. Olya Ramirez, contact #[phone].- discussed with the daughter and other family member Admission and Anticipated Discharge Date Admission Date: February 21, 2024 Subjective 02/22/2024 The patient was seen and examined in emergency room in presence of the family members She has been complaining of pain in multiple areas following a fall on Sunday last Also noted to have very high blood pressure on admission She has been feeling little better since admission 02/23/2024 The patient was seen and examined in telemetry unit She is free from any pain at rest but any movement causes pain in the left knee mainly Denies any chest pain, shortness of breath or palpitation No fever and or chills and does not have any nausea and/or vomiting 02/24/2024 The patient was seen and examined in telemetry unit She is a status post left knee irrigation and debridement, left total knee poly exchange Remains free of any pain at this time Denies any other significant symptoms 02/25/2024 The patient was seen and examined in telemetry unit She is a status post left knee I&D and poly exchange yesterday Has been complaining of pain and was difficult to attend PT today Denies any other significant symptoms PICC line consent was taken Physical Exam Physical Exam: lying in bed without any apparent distress Constitutional: + ill appearing and average body habitus Eyes: PERRL, conjunctivae normal, anicteric sclerae ENMT: external ear and nose normal, oropharynx normal Neck: trachea midline, no thyromegaly Respiratory: no respiratory distress Auscultation: lungs clear to auscultation bilaterally Cardiovascular: Rate/Rhythm: regular rate and regular rhythm; not tachycardic Heart Sounds: normal S1, normal S2 and + murmur Extremities: + edema ( trace edema bilaterally) Gastrointestinal (Abdomen): Inspection/Auscultation: normal bowel sounds; abdomen not distended Percussion/Palpation: abdomen soft; abdomen nontender Musculoskeletal: Knee: + knee abnormal to inspection (Left knee is swollen with effusion, redness and tenderness) Neurologic: normal touch/pain/proprioception and moves all extremities; no focal motor deficits Psychiatric: A+Ox3, euthymic affect Lymphatic: no cervical or axillary lymphadenopathy Results & Data Results & Data Vital Signs (Past 12 Hours) Vital Signs Temp Pulse Resp BP Pulse Ox O2 Del Method 02/25/24 11:09 36.6 C 92 H 18 115/82 96 Room Air 02/25/24 07:42 36.8 C 70 18 191/88 H 94 Room Air 02/25/24 04:00 36.7 C 85 20 176/82 H 94 Room Air Laboratory Results Short CBC 02/25/24 Range/Units 05:21 WBC 15.81 H (4.8-10.8) K/ul Hgb 9.1 L (12.0-16.0) g/dl Hct 28.1 L (37.0-47.0) % Plt Count 387 (130-400) K/uL BMP 02/25/24 05:21 Sodium 130 L Potassium 4.1 Chloride 99 Carbon Dioxide 24 BUN 22 Creatinine 1.11 Glucose 121 H Calcium 8.9 Medications Administered Current Inpatient Medications Acetaminophen (Acetaminophen 500 Mg Tab) 1,000 mg PO Q8 TIM Stop: 03/25/24 13:59 Last Admin: 02/25/24 14:06 Dose: 1,000 mg Al Hydrox/Mg Hydrox/Simethicone (Aluminum/Magnesium Susp 30 Ml Udc) 15 ml PO Q4H PRN PRN Reason: Heartburn Stop: 03/25/24 11:18 Amlodipine Besylate (Amlodipine Besylate 5 Mg Tab) 2.5 mg PO DAILY TIM Stop: 03/23/24 08:59 Last Admin: 02/25/24 08:46 Dose: 2.5 mg Ascorbic Acid (Ascorbic Acid 500 Mg Tab) 500 mg PO BIDM TIM Stop: 03/25/24 16:59 Last Admin: 02/25/24 08:56 Dose: 500 mg Aspirin (Aspirin 81 Mg Ectab) 81 mg PO BID TIM Stop: 03/25/24 20:59 Last Admin: 02/25/24 08:46 Dose: 81 mg Atorvastatin Calcium (Atorvastatin 20 Mg Tab) 20 mg PO HS TIM Stop: 03/23/24 20:59 Last Admin: 02/24/24 21:06 Dose: 20 mg Bisacodyl (Bisacodyl 10 Mg Supp) [address] DAILY PRN PRN Reason: Constipation Stop: 03/25/24 11:18 Calcium Carbonate (Calcium Carbonate 1250mg Tab) 1 tab PO BID TIM Stop: 03/25/24 20:59 Last Admin: 02/25/24 08:47 Dose: 1 tab Docusate Sodium (Docusate Sodium 100 Mg Cap) 100 mg PO BID TIM Stop: 03/23/24 08:59 Last Admin: 02/25/24 08:52 Dose: 100 mg Docusate Sodium (Docusate Sodium 100 Mg Cap) 100 mg PO BID TIM Stop: 03/25/24 20:59 Last Admin: 02/25/24 08:52 Dose: Not Given Hydromorphone HCl (Hydromorphone Inj 0.5 Mg/0.5 Ml Syr) 0.5 mg IV Q4H PRN PRN Reason: Pain or Pre PT Stop: 03/09/24 11:18 Ceftriaxone Sodium (Rocephin) 2,000 mg in 50 mls @ 100 mls/hr IV Q24H TIM Stop: 03/03/24 21:59 Last Infusion: 02/24/24 22:57 Dose: Infused Promethazine HCl (Phenergan) 6.25 mg in 50.25 mls @ 201 mls/hr IV Q6H PRN PRN Reason: Nausea And Vomiting Stop: 03/22/24 23:04 Vancomycin HCl 1,000 mg/ (Sodium Chloride) 270 mls @ 200 mls/hr IV Q24H [facility] Stop: 04/04/24 13:59 Last Admin: 02/25/24 14:06 Dose: 270 mls/hr Ketorolac Tromethamine (Ketorolac Tromethamine 15 Mg/Ml Vial) 15 mg IV Q6H [facility] Stop: 02/26/24 05:31 Last Admin: 02/25/24 11:30 Dose: 15 mg Levothyroxine Sodium (Levothyroxine Sodium 50 Mcg Tablet) 50 mcg PO DAILYBB [facility] Stop: 03/23/24 06:29 Last Admin: 02/25/24 06:04 Dose: 50 mcg Losartan Potassium (Losartan Potassium 50 Mg Tab) 100 mg PO QAM [facility] Stop: 03/23/24 08:59 Last Admin: 02/25/24 08:49 Dose: 100 mg Magnesium Hydroxide (Magnesium Hydroxide Susp 30 Ml Udc) 30 ml PO Q6H PRN PRN Reason: Constipation Stop: 03/25/24 11:18 Magnesium Oxide (Magnesium Oxide 400 Mg Tab) 400 mg PO BID [facility] Stop: 03/25/24 20:59 Last Admin: 02/25/24 08:52 Dose: 400 mg Metoclopramide HCl (Metoclopramide Hcl Inj 5 Mg/Ml 2 Ml Vial) 10 mg IV Q6H PRN PRN Reason: Nausea And Vomiting Stop: 03/25/24 11:18 Metoprolol Succinate (Metoprolol Succ 50mg Ext Rel Tab) 100 mg PO DAILY [facility] Stop: 03/23/24 08:59 Last Admin: 02/25/24 08:45 Dose: 100 mg Miscellaneous Information (Vancomycin Consult Active) 1 each N/A UD PRN PRN Reason: Consult Stop: 03/23/24 01:20 Morphine Sulfate (Morphine Sulfate 2 Mg/Ml Carp) 2 mg IV Q3H PRN PRN Reason: Pain Stop: 03/06/24 23:04 Last Admin: 02/25/24 08:45 Dose: 2 mg Multivitamins (Multivitamin Tab) 1 tab PO QAM [facility] Stop: 03/26/24 08:59 Last Admin: 02/25/24 08:46 Dose: 1 tab Naloxone HCl (Naloxone Hcl 0.4 Mg/1 Ml Vial/Carp) 0.1 mg IV Q5M PRN PRN Reason: Oversedation/Resp Depression Stop: 03/25/24 11:18 Ondansetron HCl (Ondansetron Inj 2 Mg/Ml 2 Ml Vial) 4 mg IV Q6H PRN PRN Reason: Nausea And Vomiting Stop: 03/25/24 11:18 Oxycodone HCl (Oxycodone Hcl Ir 5 Mg Tab (Immediate Release)) 5 mg PO Q4H PRN PRN Reason: Pain Stop: 03/06/24 23:04 Last Admin: 02/24/24 21:04 Dose: 5 mg Polyethylene Glycol (Polyethylene (Miralax) 17 Gm Pack) 17 gm PO DAILY PRN PRN Reason: laxative effect Stop: 03/23/24 01:34 Sennosides (Senna 8.6 Mg Tab) 17.2 mg PO HS TIM Stop: 03/25/24 20:59 Last Admin: 02/24/24 21:04 Dose: 17.2 mg Tramadol HCl (Tramadol Hcl 50 Mg Tablet) 50 - 100 mg PO Q6H PRN PRN Reason: Pain & Pre PT Stop: 03/25/24 11:18 Vitamin D (Cholecalciferol 25 Mcg (1000 Units) Tab) 50 mcg PO DAILY TIM Stop: 03/26/24 08:59 Last Admin: 02/25/24 08:48 Dose: 50 mcg (4) Urinary tract infection Hematuria presence: with hematuria Urinary tract infection type: site unspecified Qualified Code(s): N39.0 - Urinary tract infection, site not specified; R31.9 - Hematuria, unspecified (5) Fall Encounter type: initial encounter Qualified Code(s): W19.XXXA - Unspecified fall, initial encounter (6) Contusion of knee, left Encounter type: initial encounter Qualified Code(s): S80.02XA - Contusion of left knee, initial encounter
--- NOTE | 2024-02-25 15:58 | Infectious Disease Consult ---
Date of Service February 25, 2024 Telehealth Information I performed this visit using a real-time telehealth connection between my location and the patients location ([facility]). After connecting through interactive tele-video, patient was identified by name and date of and/or wristband check.Patient (or authorized healthcare cash application representative) was informed that this was a telemedicine visit and it was being conducted confidentially over secure lines. My office door was closed and no one else was present in the room with me.Patient (or authorized healthcare cash application representative) provided consent to proceed with the visit, expressed an understanding of privacy and security of the telemedicine visit, and gave permission to have a hospital cash application representative in the room in order to assist with the visit and to conduct portions of the visit, as needed. I informed the patient (or authorized healthcare cash application representative) that I reviewed their record and presented the opportunity for them to ask any questions regarding the visit today. The patient agreed to participate. Assessment & Plan (1) Infection of prosthetic knee joint: (2) MSSA (methicillin susceptible Staphylococcus aureus) infection: (3) Status post incision and drainage: Plan I would recommend stopping all current antibiotics and starting on IV cefazolin. If no contraindications, I would recommend starting on oral rifampin 300 mg twice daily for synergy. She will require 6 weeks of IV cefazolin along with oral rifampin to be followed after that with anti staph antibiotic (cefadroxil 500 mg PO BID) along with rifampin for a total of 6 months, to be followed after that with Cefadroxil for life. FINAL IMPRESSION AND RECOMMENDATIONS: Syndrome Prosthetic joint infection Microbiology Staphylococcus aureus (MSSA) Antibiotic Cefazolin 2 g IV Q8 hours (adjust for renal function) End Date Apr 06, 2024 Syndrome Prosthetic joint infection Microbiology Staphylococcus aureus (MSSA) Antibiotic Rifampin 300 mg PO BID End Date Aug 24, 2024 This plan will become effective on Apr 07, 2024 Syndrome Prosthetic joint infection Microbiology Staphylococcus aureus (MSSA) Antibiotic Cefadroxil 500 mg PO BID (Adjust for renal function) End Date For life Vascular access: Remove intravascular access after completion of antibiotics Recommended followup imaging studies: Not applicable LABORATORY MONITORING: Lab Test Frequency End Date CBC CMP Q week Apr 06, 2024 PROVIDERS: Following ID Physician ID clinic follow-up date [place] 12 weeks History of Present Illness History of Present Illness Ms. Jack is a 88-year-old woman with medical history of chronic diastolic heart failure, HTN, hypothyroidism, SIADH, solitary kidney, breast cancer status post surgery/radiation, history of left knee arthroplasty and hyperlipidemia who was admitted to [facility] on 02/20 because of worsening pain right ribcage as well as left knee pain and swelling.. The patient mentioned that she fell at home on her right shoulder and had to come to the [facility] emergency department for evaluation with shoulder x-ray at that time showing right acromioclavicular joint osteoarthritis. She was then discharged home with supportive treatment and pain killers. Over the last few days prior to presentation, she started having pain right-sided ribcage on the back as well as progressive left knee pain and swelling and had to contact her primary care physician who directed her to the emergency department. On presentation, she was afebrile but hypertensive. Initial workup showed leukocytosis of 19 (ANC 17) with CT of the left lower extremity showing moderate-sized knee joint infusion with mild skin thickening and subcutaneous edema over the lower left leg and ankle suggesting cellulitis. Left knee aspiration was performed which showed around 22,000 WBCs (93% poly nuclear), and synovial fluid culture growing staph aureus. She was eventually taken for incision and drainage on 02/23 with poly exchange/DAIR procedure with intraop cultures started to show staph species. Id team was consulted for further recommendations and to help guide antibiotic treatment. Allergies Allergy/AdvReac Type Severity Reaction Status Date / Time celecoxib Allergy Intermediate shaking Unverified 02/21/24 21:17 sensations erythromycin base Allergy Intermediate ABDOMINAL Verified 02/21/24 21:17 PAIN latex Allergy Intermediate dermatitis Unverified 02/21/24 21:17 Penicillins Allergy Intermediate SWELLING Verified 02/21/24 21:17 Sulfa (Sulfonamide Allergy Intermediate SWELLING Verified 02/21/24 21:17 Antibiotics) NARCOTICS Allergy Intermediate PAIN, Uncoded 02/21/24 21:17 SHAKES, VOMITING Home Medications Medication Instructions Recorded Confirmed Type aspirin 81 mg chewable tablet 81 mg PO HS 12/17/22 02/22/24 History atorvastatin 20 mg tablet (Lipitor) 20 mg PO HS 12/17/22 02/22/24 History calcium-magnesium 750 mg-465 mg 1 tab PO BID 12/17/22 02/22/24 History tablet cholecalciferol (vitamin D3) 25 50 mcg PO DAILY 12/17/22 02/22/24 History mcg (1,000 unit) capsule levothyroxine 50 mcg tablet 50 mcg PO DAILY 12/17/22 02/22/24 History (Synthroid) metoprolol succinate 100 mg 100 mg PO DAILY 12/17/22 02/22/24 History tablet,extended release 24 hr (Toprol XL) docusate sodium 100 mg capsule 100 mg PO BID #30 caps 12/21/22 02/22/24 Rx losartan 50 mg tablet 100 mg (2 x 50 mg) PO QAM #60 tabs 12/21/22 02/22/24 Rx polyethylene glycol 3350 17 gram 17 g PO DAILY PRN laxative effect 12/21/22 02/22/24 Rx oral powder packet (Miralax) #30 ea amlodipine 2.5 mg tablet 0 mg PO DAILY 02/22/24 02/22/24 History clindamycin HCl 300 mg capsule 300 mg PO DIRECTED PRN Other 02/22/24 02/22/24 History Patient History Social History Smoking Status: Never smoker Hx Alcohol Use: Yes Alcohol type: wine Hx Substance Use: No Preferred Language: Nepali Communication Ability: Effective Private Pilot Required: No Beliefs That Will Affect Care: None Current Living Situation: Alone Current Living Situation Comment: Lives in home by herself Feels Safe at Home: Yes Assistive Devices: Cane and Walker Review of Systems Neg except for what was mentioned in H&P. Physical Exam Couldn't be performed as the visit was conducted via telemed. Results & Data Vital Signs (Past 12 Hours) Vital Signs Temp Pulse Resp BP Pulse Ox O2 Del Method 02/25/24 11:09 36.6 C 92 H 18 115/82 96 Room Air 02/25/24 07:42 36.8 C 70 18 191/88 H 94 Room Air 02/25/24 04:00 36.7 C 85 20 176/82 H 94 Room Air Laboratory Results Microbiology: 02/20: Urine culture growing E coli 02/20: 2 sets of blood culture negative to date 02/21: Synovial fluid culture growing MSSA 02/23: Intraoperative synovial fluid culture growing staph species 02/23: Intraoperative knee tissue culture with pinpoint growth Diagnostic Findings Lower extremity CT on 02/20: 1. There is metallic artifact from a left total knee arthroplasty. There is a moderate sized knee joint effusion measuring 1.4 cm AP by 5.7 cm transverse with slight rim enhancement. In the setting of infection, septic joint should be considered. 2. Mild skin thickening and subcutaneous edema over the lower left leg and ankle suggesting cellulitis. No subcutaneous emphysema, or abscess, or foreign body is seen.
[2024-02-25] MEDS: ceFAZolin 2000MG 2,000 MG/15 ML SYR IV SCH (17:52)
[2024-02-25] MEDS: hydrALAZINE HCL 20 MG/ML VIAL IV ONE (19:58)
[2024-02-25] MEDS: rifAMPin 300 MG CAPSULE PO SCH (20:03)
[2024-02-26 06:00] LABS: Basophils # (auto) 0.03 K/uL (0.00-0.20); Basophils % (auto) 0.2 %; Eosinophils # (auto) 0.07 K/uL (0.00-0.50); Eosinophils % (auto) 0.4 %; Hematocrit (blood only) 29.6 % (37.0-47.0); Hemoglobin 10.1 g/dl (12.0-16.0); Immature Granulocytes # (auto) 0.24 K/uL (0.01-0.20); Immature Granulocytes % (auto) 1.4 %; Lymphocytes % (auto) 9.8 %; Mean Corpuscular Hemoglobin 31.7 pg (25.0-34.0); Mean Corpuscular Hgb Conc 34.1 g/dL (32.0-36.0); Mean Corpuscular Volume 92.8 fL (80.0-100.0); Mean Platelet Volume 8.7 fL (9.4-12.4); Monocytes # (auto) 1.05 K/uL (0.11-0.59); Monocytes % (auto) 6.1 %; Neutrophils # (auto) 14.26 K/uL (1.40-6.50); Neutrophils % (auto) 82.1 %; Platelet Count 526 K/uL (130-400); RDW Coefficient of Variation 11.5 % (11.5-14.5); RDW Standard Deviation 39.2 fL (36.4-46.3); Red Blood Count 3.19 M/uL (4.20-5.40); White Blood Count 17.35 K/ul (4.8-10.8)
[2024-02-26 06:20] LABS: Albumin Globulin Ratio 0.7 (0.9-2); Albumin Level 2.7 gm/dl (3.4-5.0); BUN Creatinine Ratio 24.5 (10-20); Bilirubin,Total 0.6 mg/dl (0.2-1.0); Calcium 9.1 mg/dl (8.6-10.3); Creatinine Clr Calc Pharmacy 36.2 ml/min; Est GFR (African American) 57.7 ml/min; Est GFR (Non-African American) 49.8 ml/min; Globulin 3.8 gm/dl (2.5-4.0); Total Protein 6.5 gm/dl (6.0-8.3)
[2024-02-26 07:57] VITALS: RESP 18
[2024-02-26] MEDS: ONDANSETRON INJ 2 MG/ML 2 ML VIAL IV PRN (13:13)
--- NOTE | 2024-02-26 15:31 | Hospitalist Progress Note ---
Date of Service February 26, 2024 Assessment & Plan (1) Septic arthritis of knee, left: Plan: Met sepsis criteria on admission Multifactorial : Complicated UTI Left knee joint/LLE cellulitis- to rule out septic arthritis Blood cultures have been taken Has been on intravenous ceftriaxone and vancomycin for now Status post joint aspiration and the fluid showed a few gram-positive cocci and fluid WBC of 22,000 455 suggestive of septic arthritis Appreciate Ortho input and recommendation for proposed surgery of Left knee washout tomorrow 02/24/2024 Status post left total knee poly exchange with irrigation and debridement Remains a little drowsy and denies any significant symptoms Management will be as per Ortho Will get ID consult for duration and kind of antibiotic PICC line consent was taken Culture grew staph aureus MSSA Appreciate ID input and recommendation6 weeks of IV cefazolin and oral rifampin followed by cefadroxil 500 mg twice daily along with rifampin for a total of 6 months followed by cefadroxil for life Will need to have CBC and comprehensive metabolic panel and ESR every week or so as per recommendation by the ID specialist while on antibiotic PICC line will be placed today Has had physical therapy and recommended rehab Elevated liver enzymes Normal liver enzymes on admission Not sure if it is due to 1 or 2 doses of rifampicin Will repeat LFT tomorrow and if worsening then we will have to consider stopping rifampicin (2) Hypertensive crisis: Plan: Secondary to discomfort Blood pressure was noted to be very high on admission with systolic more than 199 Likely secondary to multiple factors including pain and anxiety Has been getting amlodipine, losartan and metoprolol to control the blood pressure Seems to be towards control now Blood pressure remains stable minimally high at 150/87 Will monitor in the hospital Blood pressure has been very high and will give him hydralazine intravenously as needed to control blood pressure Blood pressure remains normal Troponin elevation secondary to illness and uncontrolled blood pressure Doubt any ACS Chronic diastolic heart failure (EF 70%, TTE 2022), patient on the dry side Valvular heart disease (mild to moderate , TTE 2022) Cardiac assessment History of chronic diastolic heart failure with EF of 70% on TTE in 2022 and also mild to moderate AAS but no significant aortic stenosis She denies any symptoms of chest pain, palpitation or shortness of breath with usual exertion Her EKG remains unremarkable and mild troponin elevation is secondary to stress due to very high blood pressure at presentation She does not have any increased risk related to cardiac condition of proposed surgery given with stable cardiac condition No contraindication for proposed surgery tomorrow She will need to have her beta-mignon taken in the morning of surgery (3) Sepsis: (4) Urinary tract infection: Plan: Urine culture is positive for infection with E. coli which is pansensitive (5) Fall: Plan: Recent fall on Sunday without any loss of consciousness Since that time she has had multiple x-rays including hip, rib, shoulder, foot, knee, tibia and fibula, and lately lower extremity CT No evidence of fractures identified Will get PT and OT evaluation on improvement- recommended rehab (6) Contusion of knee, left: Plan: History of left knee prosthesis Has been complaining of more pain following the fall and the knee joint Knee joint is acutely swelled with increasing local temperature and also increasing pain with movement CT of the left knee joint showed moderate-sized knee joint effusion measuring 1.7 cm AP by 5.7 cm transverse with slight rim enhancement. 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 SCDs Re: Possible procedure Recommend pharmacologic anticoagulation with Lovenox 40 mg subcutaneous daily once bleeding risk is deemed to be minimal and negligible pending Orthopedics evaluation. Started on Lovenox 40 mg twice daily subcu in hospital and likely to go on aspirin 81 mg twice daily on discharge as prophylaxis for DVT Full code Patient daughter requesting updates providers. Jeff Olya Ramirez, contact #[phone].- discussed with the daughter and other family member Admission and Anticipated Discharge Date Admission Date: February 21, 2024 Subjective 02/22/2024 The patient was seen and examined in emergency room in presence of the family members She has been complaining of pain in multiple areas following a fall on Sunday last Also noted to have very high blood pressure on admission She has been feeling little better since admission 02/23/2024 The patient was seen and examined in telemetry unit She is free from any pain at rest but any movement causes pain in the left knee mainly Denies any chest pain, shortness of breath or palpitation No fever and or chills and does not have any nausea and/or vomiting 02/24/2024 The patient was seen and examined in telemetry unit She is a status post left knee irrigation and debridement, left total knee poly exchange Remains free of any pain at this time Denies any other significant symptoms 02/25/2024 The patient was seen and examined in telemetry unit She is a status post left knee I&D and poly exchange yesterday Has been complaining of pain and was difficult to attend PT today Denies any other significant symptoms PICC line consent was taken 02/26/2024 The patient was seen and examined in telemetry unit She complains to pain in the left knee worse with movement Denies any other significant symptoms Review of Systems Review of Systems: all systems reviewed and are unremarkable except as noted below Physical Exam Physical Exam: Sitting on a chair without any acute distress Constitutional: + ill appearing and average body habitus Eyes: PERRL, conjunctivae normal, anicteric sclerae ENMT: external ear and nose normal, oropharynx normal Neck: trachea midline, no thyromegaly Respiratory: no respiratory distress Auscultation: lungs clear to auscultation bilaterally Cardiovascular: Rate/Rhythm: regular rate and regular rhythm; not tachycardic Heart Sounds: normal S1, normal S2 and + murmur Extremities: + edema ( trace edema bilaterally) Gastrointestinal (Abdomen): Inspection/Auscultation: normal bowel sounds; abdo men not distended Percussion/Palpation: abdomen soft; abdomen nontender Musculoskeletal: Knee: + knee abnormal to inspection (Left knee is swollen with effusion, redness and tenderness) Neurologic: normal touch/pain/proprioception and moves all extremities; no focal motor deficits Psychiatric: A+Ox3, euthymic affect Lymphatic: no cervical or axillary lymphadenopathy Results & Data Results & Data Vital Signs (Past 12 Hours) Vital Signs Temp Pulse Resp BP Pulse Ox O2 Del Method 02/26/24 11:27 36.8 C 79 18 161/79 H 94 Room Air 02/26/24 07:56 36.7 C 75 18 179/87 H 95 Room Air 02/26/24 03:41 36.8 C 95 H 22 198/96 H 95 Room Air Laboratory Results Short CBC 02/26/24 Range/Units 05:45 WBC 17.35 H (4.8-10.8) K/ul Hgb 10.1 L (12.0-16.0) g/dl Hct 29.6 L (37.0-47.0) % Plt Count 526 H (130-400) K/uL BMP 02/26/24 05:45 Sodium 131 L Potassium 4.0 Chloride 98 Carbon Dioxide 25 BUN 25 H Creatinine 1.02 Glucose 115 H Calcium 9.1 Liver Function 02/26/24 Range/Units 05:45 Total Bilirubin 0.6 (0.2-1.0) mg/dl AST 100 H (13-39) U/L ALT 75 H (7-52) U/L Alkaline Phosphatase 183 H (34-104) U/L Albumin 2.7 L (3.4-5.0) gm/dl Medications Administered Current Inpatient Medications Acetaminophen (Acetaminophen 500 Mg Tab) 1,000 mg PO Q8 TIM Stop: 03/25/24 13:59 Last Admin: 02/26/24 13:15 Dose: 1,000 mg Al Hydrox/Mg Hydrox/Simethicone (Aluminum/Magnesium Susp 30 Ml Udc) 15 ml PO Q4H PRN PRN Reason: Heartburn Stop: 03/25/24 11:18 Amlodipine Besylate (Amlodipine Besylate 5 Mg Tab) 2.5 mg PO DAILY TIM Stop: 03/23/24 08:59 Last Admin: 02/26/24 07:51 Dose: 2.5 mg Ascorbic Acid (Ascorbic Acid 500 Mg Tab) 500 mg PO BIDM TIM Stop: 03/25/24 16:59 Last Admin: 02/26/24 07:51 Dose: 500 mg Aspirin (Aspirin 81 Mg Ectab) 81 mg PO BID TIM Stop: 03/25/24 20:59 Last Admin: 02/26/24 07:52 Dose: 81 mg Atorvastatin Calcium (Atorvastatin 20 Mg Tab) 20 mg PO HS TIM Stop: 03/23/24 20:59 Last Admin: 02/25/24 20:01 Dose: 20 mg Bisacodyl (Bisacodyl 10 Mg Supp) 10 mg WI DAILY PRN PRN Reason: Constipation Stop: 03/25/24 11:18 Calcium Carbonate (Calcium Carbonate 1250mg Tab) 1 tab PO BID [facility] Stop: 03/25/24 20:59 Last Admin: 02/26/24 07:51 Dose: 1 tab Docusate Sodium (Docusate Sodium 100 Mg Cap) 100 mg PO BID [facility] Stop: 03/23/24 08:59 Last Admin: 02/26/24 07:53 Dose: Not Given Heparin Sodium (Beef Lung) (Heparin 10 Unit/Ml 5 Ml Flush) 5 ml FLUSH PRN PRN PRN Reason: Flush Stop: 03/27/24 12:43 Promethazine HCl (Phenergan) 6.25 mg in 50.25 mls @ 201 mls/hr IV Q6H PRN PRN Reason: Nausea And Vomiting Stop: 03/22/24 23:04 Cefazolin Sodium (Ancef 2000mg) 2,000 mg in 15 mls @ 3.75 mls/min IV Q8H [facility] Stop: 04/07/24 16:59 Last Admin: 02/26/24 09:53 Dose: 3.75 mls/min Levothyroxine Sodium (Levothyroxine Sodium 50 Mcg Tablet) 50 mcg PO DAILYBB [facility] Stop: 03/23/24 06:29 Last Admin: 02/26/24 05:42 Dose: 50 mcg Losartan Potassium (Losartan Potassium 50 Mg Tab) 100 mg PO QAM [facility] Stop: 03/23/24 08:59 Last Admin: 02/26/24 07:51 Dose: 100 mg Magnesium Hydroxide (Magnesium Hydroxide Susp 30 Ml Udc) 30 ml PO Q6H PRN PRN Reason: Constipation Stop: 03/25/24 11:18 Magnesium Oxide (Magnesium Oxide 400 Mg Tab) 400 mg PO BID [facility] Stop: 03/25/24 20:59 Last Admin: 02/26/24 07:51 Dose: 400 mg Metoclopramide HCl (Metoclopramide Hcl Inj 5 Mg/Ml 2 Ml Vial) 10 mg IV Q6H PRN PRN Reason: Nausea And Vomiting Stop: 03/25/24 11:18 Metoprolol Succinate (Metoprolol Succ 50mg Ext Rel Tab) 100 mg PO DAILY [facility] Stop: 03/23/24 08:59 Last Admin: 02/26/24 07:52 Dose: 100 mg Morphine Sulfate (Morphine Sulfate 2 Mg/Ml Carp) 2 mg IV Q3H PRN PRN Reason: Pain Stop: 03/06/24 23:04 Last Admin: 02/26/24 05:42 Dose: 2 mg Multivitamins (Multivitamin Tab) 1 tab PO QAM TIM Stop: 03/26/24 08:59 Last Admin: 02/26/24 07:51 Dose: 1 tab Naloxone HCl (Naloxone Hcl 0.4 Mg/1 Ml Vial/Carp) 0.1 mg IV Q5M PRN PRN Reason: Oversedation/Resp Depression Stop: 03/25/24 11:18 Ondansetron HCl (Ondansetron Inj 2 Mg/Ml 2 Ml Vial) 4 mg IV Q6H PRN PRN Reason: Nausea And Vomiting Stop: 03/25/24 11:18 Last Admin: 02/26/24 13:13 Dose: 4 mg Oxycodone HCl (Oxycodone Hcl Ir 5 Mg Tab (Immediate Release)) 5 mg PO Q4H PRN PRN Reason: Pain Stop: 03/06/24 23:04 Last Admin: 02/26/24 03:50 Dose: 5 mg Polyethylene Glycol (Polyethylene (Miralax) 17 Gm Pack) 17 gm PO DAILY PRN PRN Reason: laxative effect Stop: 03/23/24 01:34 Rifampin (Rifampin 300 Mg Capsule) 300 mg PO BID TIM Stop: 03/26/24 20:59 Last Admin: 02/26/24 07:51 Dose: 300 mg Sennosides (Senna 8.6 Mg Tab) 17.2 mg PO HS TIM Stop: 03/25/24 20:59 Last Admin: 02/25/24 20:04 Dose: 17.2 mg Vitamin D (Cholecalciferol 25 Mcg (1000 Units) Tab) 50 mcg PO DAILY TIM Stop: 03/26/24 08:59 Last Admin: 02/26/24 07:50 Dose: 50 mcg (4) Urinary tract infection Hematuria presence: with hematuria Urinary tract infection type: site unspecified Qualified Code(s): N39.0 - Urinary tract infection, site not specified; R31.9 - Hematuria, unspecified (5) Fall Encounter type: initial encounter Qualified Code(s): W19.XXXA - Unspecified fall, initial encounter (6) Contusion of knee, left Encounter type: initial encounter Qualified Code(s): S80.02XA - Contusion of left knee, initial encounter
[2024-02-26] MEDS: ENOXAPARIN INJ 40 MG/0.4 ML SYR SQ SCH (17:03)
[2024-02-27 05:25] LABS: Creatinine Clr Calc Pharmacy 36.2 ml/min; Est GFR (African American) 57.7 ml/min; Est GFR (Non-African American) 49.8 ml/min
[2024-02-27 09:26] LABS: Basophils # (auto) 0.03 K/uL (0.00-0.20); Basophils % (auto) 0.2 %; Eosinophils # (auto) 0.08 K/uL (0.00-0.50); Eosinophils % (auto) 0.6 %; Hematocrit (blood only) 32.1 % (37.0-47.0); Hemoglobin 10.5 g/dl (12.0-16.0); Immature Granulocytes # (auto) 0.19 K/uL (0.01-0.20); Immature Granulocytes % (auto) 1.4 %; Lymphocytes # (auto) 1.36 K/uL (1.20-3.40); Lymphocytes % (auto) 9.8 %; Mean Corpuscular Hemoglobin 30.6 pg (25.0-34.0); Mean Corpuscular Hgb Conc 32.7 g/dL (32.0-36.0); Mean Corpuscular Volume 93.6 fL (80.0-100.0); Mean Platelet Volume 8.8 fL (9.4-12.4); Monocytes # (auto) 0.89 K/uL (0.11-0.59); Monocytes % (auto) 6.4 %; Neutrophils # (auto) 11.26 K/uL (1.40-6.50); Neutrophils % (auto) 81.6 %; Platelet Count 557 K/uL (130-400); RDW Coefficient of Variation 11.6 % (11.5-14.5); RDW Standard Deviation 39.7 fL (36.4-46.3); Red Blood Count 3.43 M/uL (4.20-5.40); White Blood Count 13.81 K/ul (4.8-10.8)
[2024-02-27 09:43] LABS: Albumin Globulin Ratio 0.7 (0.9-2); Albumin Level 2.7 gm/dl (3.4-5.0); BUN Creatinine Ratio 18.7 (10-20); Bilirubin,Total 0.7 mg/dl (0.2-1.0); Creatinine Clr Calc Pharmacy 34.2 ml/min; Est GFR (African American) 54.4 ml/min; Globulin 4.1 gm/dl (2.5-4.0); Potassium 3.4 mmol/L (3.5-5.1); Total Protein 6.8 gm/dl (6.0-8.3)
[2024-02-27 10:28] LABS: Hep B Surface Ag with confirm Negative (Negative)
[2024-02-27 10:31] LABS: Hep C Ab Rflx HepCQuant RNA Negative (Negative)
--- NOTE | 2024-02-27 11:25 | Discharge Summary ---
Discharge Summary Date of Service February 27, 2024 Principal Dx & Hospital Course #1 = Principal Diagnosis (1) Septic arthritis of knee, left: (2) Infection of prosthetic knee joint: (3) Status post incision and drainage: (4) MSSA (methicillin susceptible Staphylococcus aureus) infection: (5) Hypertensive crisis: Plan Patient presented to the emergency room after a fall and evidence of sepsis from a UTI and this knee cellulitis. Patient was admitted to the hospital. She was placed on broad-spectrum antibiotics. Orthopedic consultation was obtained. Left knee effusion was aspirated. This grew out methicillin sensitive Staph aureus. Patient went to the operating room for irrigation and debridement of the left total knee and replacement of the polyethylene. Postoperative course was uneventful. She did need some adjustments of her antihypertensive medications. Infectious disease consultation was obtained. Based on cultures and sensitivities recommendations for both IV and oral antibiotics were made. A PICC line was placed on blood cultures remain sterile. Due to her deconditioning and need for rehabilitation care was coordinated for ongoing rehabilitation antibiotics [facility] the [facility] facility. She will follow-up with orthopedics outpatient and continue antibiotics as recommended by infectious disease while undergoing her rehabilitation. Notes For Next Care Provider FINAL IMPRESSION AND RECOMMENDATIONS: SyndromeProsthetic joint infection MicrobiologyStaphylococcus aureus (MSSA) AntibioticCefazolin 2 g IV Q8 hours (adjust for renal function) End DateApr 06, 2024 SyndromeProsthetic joint infection MicrobiologyStaphylococcus aureus (MSSA) AntibioticRifampin 300 mg PO BID End DateAug 24, 2024 This plan will become effective on Apr 07, 2024 SyndromeProsthetic joint infection MicrobiologyStaphylococcus aureus (MSSA) AntibioticCefadroxil 500 mg PO BID (Adjust for renal function) End DateFor life Medication Changes From Visit Antibiotics as noted above [facility] for blood pressure control Admission HPI Per Admitting Provider History obtained from patient, family, and records. Medical history significant for chronic diastolic heart failure (EF 70%, TTE 2022 ), valvular heart disease (mild to moderate , TTE 2022), hypertension, hyperlipidemia, hypothyroidism, left breast cancer status post surgery/radiation, SIADH, chronic hyponatremia, solitary kidney, chronic anemia (baseline hemoglobin of 11), past tobacco abuse. Last confinement November 2022 for pelvic fracture, UTI and hyponatremia. Fluid restriction of 1.2 L/day as per nephrology recommendations. Patient fell at home subsequently hitting a garbage can 4 days ago. No head trauma or LOC. Achy right side pain. Patient evaluated at [facility] ER. Right shoulder x-ray showed moderate right AC joint osteoarthritis. Findings suggestive of calcific tendinitis of the right rotator cuff. Patient discharged home. Dysuria symptoms noted 3 days ago. Outpatient UA ordered by PCP. Patient noted worsening pain on right rib area and back. Achy left knee pain and swelling Some chills at home. Denies SOB or cough or headache symptoms. Leukocytosis on outpatient blood work today. Patient directed by PCP to ER for evaluation. Ceftriaxone administered at the ER. Medical History as above Surgical History : Knee surgery, breast biopsy, lymph node biopsy, cataract surgery, section, BTL, mastectomy left Family History : Colon cancer, leukemia, heart disease, stroke Personal/Social history : Past tobacco abuse, occasional EtOH intake, retired from insurance work Admission Exam Per Admitting Provider See H&P Discharge Exam Constitutional: Alert HEENT: Mucous membranes moist. Lungs: Clear to auscultation, decreased, no wheezes rales or rhonchi CV: S1-S2, regular Abdomen: Soft, nontender, nondistended Extremities: Left knee incision with darian, no significant redness, no significant tenderness or warmth, appropriate healing, no drainage Neuro: No focal deficits Psych: Cooperative, normal mood Updated Medication List Medication Instructions Recorded Confirmed Type calcium-magnesium 750 mg-465 mg 1 tab PO BID 12/17/22 02/22/24 History tablet losartan 50 mg tablet 100 mg (2 x 50 mg) PO QAM #60 tabs 12/21/22 02/22/24 Rx amlodipine 2.5 mg tablet 0 mg PO DAILY 02/22/24 02/22/24 History clindamycin HCl 300 mg capsule 300 mg PO DIRECTED PRN Other 02/22/24 02/22/24 History acetaminophen 500 mg tablet 1,000 mg (2 x 500 mg) PO Q8 PRN 02/27/24 Rx (Tylenol Extra Strength) fever or pain #90 tabs amlodipine 5 mg tablet (Norvasc) 10 mg (2 x 5 mg) PO DAILY #30 tabs 02/27/24 Rx ascorbic acid (vitamin C) 500 mg 500 mg PO BIDM #60 tabs 02/27/24 Rx tablet (Vitamin C) aspirin 81 mg chewable tablet 81 mg PO HS #30 tabs 02/27/24 Rx atorvastatin 20 mg tablet (Lipitor) 20 mg PO HS #30 tabs 02/27/24 Rx calcium carbonate 500 mg-vitamin 1 tab PO BID #60 tabs 02/27/24 Rx D3 2.5 mcg (100 unit) chewable tablet cholecalciferol (vitamin D3) 25 50 mcg (2 x 25 mcg (1,000 unit)) 02/27/24 Rx mcg (1,000 unit) capsule PO DAILY #30 caps docusate sodium 100 mg capsule 100 mg PO BID #30 caps 02/27/24 Rx enoxaparin 40 mg/0.4 mL 40 mg (0.4 mL) subcut QAM 30 days 02/27/24 Rx subcutaneous syringe (Lovenox) #12 mL levothyroxine 50 mcg tablet 50 mcg PO DAILY #30 tabs 02/27/24 Rx (Synthroid) losartan 50 mg tablet 100 mg (2 x 50 mg) PO QAM #30 tabs 02/27/24 Rx metoprolol succinate 100 mg 100 mg PO DAILY #30 tabs 02/27/24 Rx tablet,extended release 24 hr (Toprol XL) multivitamin (Daily Multi-Vitamin 1 tab PO DAILY #30 tabs 02/27/24 Rx tablet) oxycodone 5 mg tablet 5 mg PO Q4H PRN pain #10 tabs 02/27/24 Rx polyethylene glycol 3350 17 gram 17 g PO DAILY PRN laxative effect 02/27/24 Rx oral powder packet (Miralax) #30 ea rifampin 300 mg capsule 300 mg PO BID #60 caps 02/27/24 Rx sennosides 8.6 mg tablet (Senokot) 17.2 mg (2 x 8.6 mg) PO HS #30 tabs 02/27/24 Rx Hospital Stay Data Consultations 02/21/24 21:19 ED Decision to Admit Stat 02/22/24 01:22 Consult Orthopedic Surgery Routine 02/24/24 14:39 Consult Infectious Diseases Routine Procedures Performed Operation Date: 02/24/24 07:30 Actual Procedures p Poly Exchange(Left) - Yimi Dexter MD s Irrigation and Debridement Left Total Knee,(Left) - Yimi Dexter MD Diagnostic Imagining Performed 02/21/24 18:07 US venous doppler LE LT Stat 02/21/24 23:05 CT Abd and Pelvis [CT abd pelvis IV con only] Stat CT chest with contrast [CT chest diagnostic w con] Stat CT tib/fib LT w con Stat Reviewed imaging, laboratory and diagnostic studies. Pertinent findings as below. Left knee microbiology grew out methicillin sensitive Staph aureus WBCs 13.8, significantly improved Hemoglobin 10.5 Creatinine 1.07 AST 49, improved ALT 22, alk phos 156 improved hepatitis panel negative Pending Results Patient Have Any Pending Studies at Discharge: No Discharge Instructions Given to Patient (Per Discharging Provider) ACTIVITY RECOMMENDATIONS: Physical Therapy: * You will go to physical therapy three times each week for four to six weeks after your surgery in order to regain your knee range of motion and to retrain your knee to work properly. * It is just as important to make sure you are getting your knee perfectly straight as it is to regain your knee bend. * Taking a pain pill an hour before therapy can help you have a more productive and comfortable therapy session. Home Exercise: * You were shown a series of exercises (heel props, heel slides, etc.) in the hospital. Do these exercises three to four times each day including the exercises you were shown in physical therapy. Walking: * Get up and walk several times each day. For the first four weeks, try not to stand or walk for more than one hour at a time. If you do stand or walk for more than one hour, you will not hurt anything, but your knee and leg will likely swell. * As you feel comfortable, you may change from the walker or crutches to a cane and then to independent walking. MEDICATIONS: New Medicine: * You will likely be taking one or more of these medications: 1. Tramadol - A quick and shorter-acting pain medication. Take one to two tablets every six hours to lessen your pain. 2. Aspirin - Thins your blood to lessen the chance of forming a blood clot. * The most common side effects of pain medicine and iron are nausea and constipation. If nausea or constipation is too much of a problem or if you have any questions about your new medicines or doses, call [facility] at [phone]. We will try to help you manage these issues. "VERY IMPORTANT TO READ AND REVIEW" Pain: * The immediate post-operative period after knee replacement surgery is often quite painful. * You are given a prescription for pain medicine. You should take it, as directed, when you need it, especially before physical therapy and before going to bed. Pain that interferes with sleep is very common and can last several months. * You will likely need pain medicine for the first four to six weeks. It will not stop all of the pain. The pain will lessen and as you feel better, you may change to milder pain medicine such as Tylenol. * The most common side effects of pain medicine are nausea and constipation, so don't take more than you need. SPECIAL CARE INSTRUCTIONS: TEDs/Elastic Stockings: * The white elastic stockings help limit swelling and prevent blood clots from forming in your legs. The more you wear them, the more they work. * Wear them for six weeks after knee replacement surgery and four weeks after partial knee replacement. Incision Site Care: * Remove dressing postoperative day 2 and then shower. Keep direct shower pressure off the incision site. * After showering, cover darian with dry gauze and change daily or more frequently if the dressing is getting saturated with drainage. * Use the BRITTANI stockings to hold dressing in place. DO NOT apply tape on the skin. * May completely stop using bandage if wound is dry and no drainage * [place] are removed between 2 and 3 weeks post-op. If your follow-up appointment is made before 2 weeks, please have your appointment re- scheduled. It is too early to remove the darian. Prevention of Infection: * Take antibiotics one hour before any dental cleaning, dental work, urological procedure, gastrointestinal procedure or any invasive surgery in order to prevent your new joint from getting infected. * You may get the antibiotics from the doctor performing the procedure or you may call our office at [phone] before and we will call in a prescription to the pharmacy of your choice. Things to Watch For: * Drainage from the incision site that occurs more than one week after your surgery. * Severely increased knee/leg pain or swelling. * Increased redness at the incision site. * Fever above 102 degrees Fahrenheit. * Unusual chest pain or shortness of breath. * Unusual pain or burning with urination. Call [facility] at [phone] with any of the above problems or if you have any questions about your medicines or recovery. FOLLOW UP VISIT: Make an appointment to see your doctor for approximately two weeks after surgery for a progress check and staple removal by calling the office at [phone]. Total Time Total Time Spent Total Time Spent (In Minutes): 45
[2024-02-27] MEDS: POTASSIUM CHLORIDE CRTAB 20 MEQ TABCR PO STA ×2 (11:41→17:32)
[2024-02-27] MEDS: amLODIPine BESYLATE 5 MG TAB PO SCH (11:41)
--- NOTE | 2024-02-27 16:22 | Hospitalist Progress Note ---
Date of Service February 27, 2024 Assessment & Plan (1) Septic arthritis of knee, left: (2) Infection of prosthetic knee joint: (3) Status post incision and drainage: (4) MSSA (methicillin susceptible Staphylococcus aureus) infection: (5) Hypertensive crisis: (6) Reactive thrombocytosis: Plan Patient was prepared for discharge to halfway facility today for ongoing management of her septic arthritis and rehabilitation. Potassium was replaced Unfortunately, prior authorization was not obtained throughout the day today. Discharge will be held until authorization obtained. Will follow-up labs in a.m. Admission and Anticipated Discharge Date Admission Date: February 21, 2024 Subjective Patient overall doing well. Pain is controlled. Physical Exam Physical Exam: Constitutional: Alert HEENT: Mucous membranes moist. Lungs: Clear to auscultation, decreased, no wheezes rales or rhonchi CV: S1-S2, regular Abdomen: Soft, nontender, nondistended Extremities: Left knee incision with darian, no significant redness, no significant tenderness or warmth, appropriate healing, no drainage Neuro: No focal deficits Psych: Cooperative, normal mood Results & Data Results & Data Vital Signs (Past 12 Hours) Vital Signs Temp Pulse Resp BP Pulse Ox O2 Del Method 02/27/24 15:54 36.7 C 86 18 193/92 H 93 Room Air 02/27/24 13:42 170/84 H 02/27/24 10:57 36.6 C 82 18 204/104 H 94 Room Air 02/27/24 09:33 180/91 H 02/27/24 08:22 194/143 H 02/27/24 07:53 36.6 C 90 18 206/119 H 94 Room Air Diagnostic Findings Reviewed imaging, laboratory and diagnostic studies. Pertinent findings as below. LFTs reviewed and improved Potassium 3.4
[2024-02-27] MEDS: POTASSIUM CHLORIDE / WTR 10 MEQ/100 ML PLCT IV SCH (18:16)
[2024-02-27] MEDS: METOPROLOL SUCC 50MG EXT REL TAB PO SCH (20:35)
[2024-02-27] MEDS: METOPROLOL SUCC 50MG EXT REL TAB PO STA (21:11)
[2024-02-28 06:09] LABS: Hematocrit (blood only) 29.6 % (37.0-47.0); Hemoglobin 9.9 g/dl (12.0-16.0); Mean Corpuscular Hemoglobin 31.4 pg (25.0-34.0); Mean Corpuscular Hgb Conc 33.4 g/dL (32.0-36.0); Mean Platelet Volume 8.7 fL (9.4-12.4); Platelet Count 481 K/uL (130-400); RDW Coefficient of Variation 11.6 % (11.5-14.5); RDW Standard Deviation 39.2 fL (36.4-46.3); Red Blood Count 3.15 M/uL (4.20-5.40); White Blood Count 14.46 K/ul (4.8-10.8)
[2024-02-28 06:27] LABS: BUN Creatinine Ratio 18.5 (10-20); Calcium 8.9 mg/dl (8.6-10.3); Creatinine Clr Calc Pharmacy 39.7 ml/min; Potassium 4.1 mmol/L (3.5-5.1)
[2024-02-28 07:22] VITALS: PULSE 81; TEMP 98.6; O2SAT 95
--- NOTE | 2024-02-28 08:12 | Orthopedic Progress Note ---
Date of Service February 28, 2024 Assessment & Plan (1) Infection of prosthetic knee joint: Plan: 88-year-old female now postop day 4 from I&D and poly exchange for an acutely septic total knee replacement with methicillin sensitive staph. She seems to be doing okay. Wound looks to be good. Knee swelling is good. She is on the appropriate antibiotics. Plan: 1. DVT prophylaxis and would recommend thigh-high teds, SCDs, aspirin twice a day. She is on Lovenox but would recommend a baby aspirin twice a day for 6 weeks. 2. PT/OT. She can fully weight-bear as tolerated. 3. Pain control seems to be doing okay with current pain regimen. 4. Antibiotics. She set up with 2 g of IV Ancef every 8 hours along with rifampin for the next 6 weeks and then oral antibiotics likely after that. 5. Disposition she is orthopedically okay for discharge anytime medically stable. I did see her back 2 to 3 weeks out from surgery date. Any orthopedic questions can direct me [phone]. (2) MSSA (methicillin susceptible Staphylococcus aureus) infection: (3) Status post incision and drainage: Admission and Anticipated Discharge Date Admission Date: February 21, 2024 Subjective 88-year-old female now postop day 4 from I&D and poly exchange for a acutely septic total knee arthroplasty. She is doing okay this morning. Some moderate pain. No new complaints. Physical Exam Physical Exam: Physical exam shows a pleasant elderly female. Lying bed looks pretty comfortable. Examination of the left knee incision reveals to be well- approximated. Her knee is well aligned. Not a lot of swelling. She can dorsiflex and plantarflex her foot appropriately. She is neurologically intact. Results & Data Vital Signs (Past 12 Hours) Vital Signs Temp Pulse Resp BP Pulse Ox O2 Del Method 02/28/24 07:21 37 C 81 18 211/109 H 95 Room Air 02/28/24 06:39 189/98 H 02/27/24 23:28 185/98 H 02/27/24 20:20 36.6 C 80 18 201/108 H 96 Room Air Laboratory Results Culture results are all showing methicillin-sensitive staph. Diagnostic Findings Hemoglobin is 9.9. Hematocrit 29.6.
[2024-02-28] MEDS: hydrALAZINE HCL 25 MG TAB PO SCH (08:47)
[2024-02-28 10:12] LABS: Hepatitis A Antibody IgM NON-REACTIVE (NON-REACTIVE); Hepatitis B Core Antibody IgM NON-REACTIVE (NON-REACTIVE)
[2024-02-28 12:40] VITALS: BP 199/97
== END 2024-02-28 16:05 | DRG 485 ==
LOC: ED 14:39 → SUATTDRO 23:02 → EDINP 23:02 → 4W 02-22 15:32 → 3E 02-27 20:19

== ENCOUNTER 2025-03-18 15:27 | Inpatient (IN) ==
[2025-03-18 16:13] LABS: Hematocrit (blood only) 36.8 % (37.0-47.0); Hemoglobin 12.6 g/dl (12.0-16.0); Immature Granulocytes # (auto) 0.05 K/uL (0.01-0.20); Immature Granulocytes % (auto) 0.4 %; Mean Corpuscular Hemoglobin 31.8 pg (25.0-34.0); Mean Corpuscular Volume 92.9 fL (80.0-100.0); Platelet Count 262 K/uL (130-400); RDW Standard Deviation 42.4 fL (36.4-46.3); Red Blood Count 3.96 M/uL (4.20-5.40); White Blood Count 12.37 K/ul (4.8-10.8)
--- NOTE | 2025-03-18 16:25 | Emergency Department Note ---
Impression & Plan Hypotension, SOHAN (acute kidney injury), Hypomagnesemia, Chills, Leukocytosis ED Provider Note NAME: MARKEL GRANADOS AGE: 89 SEX: F : 1935 ARRIVES VIA: Walk-In INFORMANT: [Patient][family] ED PROVIDER(S): [Yobani Og MD] CHIEF COMPLAINT: Hypotension, flulike symptoms HISTORY OF PRESENT ILLNESS: Patient is an 89-year-old female who presents to the ER with about a week of a sore throat, cough and bilateral ear pain. She has some aches and chills and may have had a low-grade fever. The whole family was sick with something similar. The patient went to urgent care today. Her blood pressure was 99 systolic. She was felt to be suffering from rigors. Because of the lower BP, she was referred to the ER. She has been septic in the past. Patient is on antibiotics orally for life, rifampin. She had sepsis and, the infection spread to her prosthetic knee. PMHx/PSHx/Social Hx: See Below PHYSICAL EXAM: GENERAL: Patient is in no acute distress. HEENT: No acute trauma, normocephalic atraumatic, mucous membranes moist, no nasal congestion. NECK: No stridor, no adenopathy, no meningismus, trachea is midline. LUNGS: Clear to auscultation bilaterally, no wheeze, no rhonchi, breath sounds equal. HEART: Without murmurs gallops or rubs, regular rate and rhythm. ABDOMEN: Soft, nontender, no peritonitis. EXTREMITIES: No cyanosis, full range of motion of all the joints without pain or difficulty. No edema. NEUROLOGIC: Oriented x 3, no acute motor or sensory deficits, no focal weakness. SKIN: No jaundice, no diaphoresis. DIFFERENTIAL DIAGNOSIS: Bronchitis or pneumonia, bacteremia, sepsis, UTI, viral illness, among others. EMERGENCY DEPARTMENT PROCEDURES: MEDICAL DECISION MAKING: There is a mild leukocytosis, this of course could be consistent with infection. There was a normal hemoglobin and platelet count. No bandemia. There was some mild acute kidney injury with a creatinine of 1.56. Magnesium is low at 1.4. Lactic acid level was not elevated making severe sepsis less likely. No concerning liver enzyme elevation. The patient appeared to be in a euthyroid state. ECG shows a sinus rhythm, no ischemia. Cardiac enzyme testing x 1 is slightly elevated, the patient appears to run a mildly elevated troponin at baseline. Chest x-ray does not show pneumonia or concerning CHF. Urinalysis does not show findings of infection. COVID, influenza and RSV test were negative. On exam, the patient was resting comfortably, she was not toxic or febrile. The patient received IV saline, 1 L. She was given IV magnesium and IV ceftriaxone. The patient presents with chills, a lower blood pressure. She has a diagnosis of recent sepsis and, is on antibiotics lifelong for spread of the organism to her left knee. Given the findings, given her complaints, I do think a hospital stay would be warranted. I did speak with the patient and family. I spoke with case management. The on-call hospitalist was consulted. Prior/Outside records/notes reviewed: None ECG per my interpretation: Indication was weakness. The ECG shows a normal sinus rhythm with a rate of 85. There is LVH present. There is an old septal infarct. There is no obvious ST elevation, no PVCs. The QTc is 416. Continuous Cardiac Monitoring per my interpretation: An order was placed for continuous cardiac monitoring. The monitor shows a rate of 97 with normal sinus rhythm. Imaging/x-ray results per my interpretation: Chest x-ray does not show heart failure or pneumonia. There is some diffuse minimal parenchymal change which appears chronic. Chronic Medical/Social conditions affecting care: Advanced age, history of sepsis. Care/Management discussed with: Case management, the on-call hospitalist. Level of care consideration(s): After review of the information above and other included data: --I believe the patient requires escalation of care to admission DISPOSITION: Admission Past Med/Surg History Problem List Leukocytosis (Acute) Chills (Acute) Hypomagnesemia (Acute) SOHAN (acute kidney injury) (Acute) Hypotension (Acute) Right knee DJD Reactive thrombocytosis Status post incision and drainage MSSA (methicillin susceptible Staphylococcus aureus) infection 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, left Effusion, left knee Sepsis Hypertensive crisis Contusion of knee, left (Acute) Contusion of right chest wall (Acute) Fall (Acute) Hyponatremia (Acute) Pelvic fracture (Acute) Conjunctivitis (Acute) Upper respiratory infection (Acute) HTN (hypertension) (Chronic) HTN (hypertension) (Chronic) Heart disease (Chronic) Cancer (Chronic) Cellulitis (Acute) Wound infection (Acute) Medical History CKD (chronic kidney disease), stage III Social History Smoking Status: Never smoker Hx Alcohol Use: Yes Alcohol type: wine Hx Substance Use: No Preferred Language: Tanzanian Communication Ability: Effective 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 Beliefs That Will Affect Care: None Current Living Situation: Alone Current Living Situation Comment: Lives in home by herself Feels Safe at Home: Yes Assistive Devices: Cane and Walker Allergies Allergies Allergy/AdvReac Type Severity Reaction Status Date / Time latex Allergy Intermediate dermatitis Verified 03/18/25 18:17 Penicillins Allergy Intermediate Hives Verified 03/18/25 18:17 celecoxib AdvReac Intermediate shaking Verified 03/18/25 18:17 sensations erythromycin base AdvReac Intermediate ABDOMINAL Verified 03/18/25 18:17 PAIN hydromorphone [From Dilaudid] AdvReac Intermediate NAUSEA/VOMI Verified 03/18/25 18:17 TING oxycodone AdvReac Intermediate Abdominal Verified 03/18/25 18:17 Pain propoxyphene [From Darvon] AdvReac Intermediate Abdominal Verified 03/18/25 18:17 Pain silver sulfadiazine AdvReac Intermediate "BURNING Verified 03/18/25 18:17 SENSATION" Sulfa (Sulfonamide AdvReac Intermediate NAUSEA/VOMITING/SHAKING Verified 03/18/25 18:17 Antibiotics) SENSATION Home Meds Home Medications Medication Instructions Recorded Confirmed acetaminophen 325 mg tablet 650 mg PO DIRECTED PRN 03/18/25 03/18/25 (Tylenol) PAIN/FEVER amlodipine 5 mg tablet (Norvasc) 5 mg PO DAILY 03/18/25 03/18/25 ascorbic acid (vitamin C) 500 mg 500 mg PO QAM 03/18/25 03/18/25 tablet (Vitamin C) aspirin 81 mg chewable tablet 81 mg PO QAM 03/18/25 03/18/25 cefadroxil 500 mg capsule 500 mg PO DAILY 03/18/25 03/18/25 cholecalciferol (vitamin D3) 25 50 mcg PO QDD 03/18/25 03/18/25 mcg (1,000 unit) capsule clindamycin HCl 150 mg capsule 600 mg PO DIRECTED PRN PRIOR TO 03/18/25 03/18/25 DENTAL PROCEDURES gabapentin 100 mg capsule 100 mg PO HS 03/18/25 03/18/25 levothyroxine 50 mcg tablet 50 mcg PO DAILYBB 03/18/25 03/18/25 (Synthroid) losartan 100 mg tablet 100 mg PO QAM 03/18/25 03/18/25 melatonin 3 mg tablet 3 mg PO HS PRN Sleep 03/18/25 03/18/25 metoprolol succinate 50 mg 50 mg PO QAM 03/18/25 03/18/25 tablet,extended release 24 hr multivitamin (Daily Multi-Vitamin 2 tab PO QDL 03/18/25 03/18/25 tablet) nystatin 100,000 unit/gram topical 1 applic topical TID PRN SKIN 03/18/25 03/18/25 powder IRRITATIONS potassium chloride 20 mEq 20 meq PO BID 03/18/25 03/18/25 tablet,extended release(part/cryst) Previous Rx's Medication Instructions Recorded atorvastatin 20 mg tablet (Lipitor) 20 mg PO HS #30 tabs 02/27/24 Results & Data (ED) Vital Signs Vital Signs - 24 hr 03/18/25 15:35 03/18/25 16:39 03/18/25 16:49 Temperature 36.2 C L Temperature Source Temporal Artery Scan Pulse Rate 97 H 74 Pulse Rate from SpO2 Sensor Respiratory Rate 18 Blood Pressure 110/58 L Blood Pressure Mean 75 Pulse Oximetry 94 95 Oxygen Delivery Method Room Air Room Air Sepsis Recent Fever Within 48 Hours No Sepsis New/Unexplained Change in Mental Status N/A Sepsis Action Taken by Nursing No Action Required 03/18/25 16:51 03/18/25 17:00 03/18/25 17:00 Temperature Temperature Source Pulse Rate 72 74 Pulse Rate from SpO2 Sensor 72 74 Respiratory Rate 19 20 Blood Pressure 117/64 Blood Pressure Mean 88 Pulse Oximetry 96 97 Oxygen Delivery Method Sepsis Recent Fever Within 48 Hours Sepsis New/Unexplained Change in Mental Status Sepsis Action Taken by Nursing 03/18/25 17:21 03/18/25 17:21 03/18/25 17:30 Temperature Temperature Source Pulse Rate 74 75 Pulse Rate from SpO2 Sensor 73 76 Respiratory Rate 19 19 Blood Pressure 131/69 Blood Pressure Mean 96 Pulse Oximetry 99 97 Oxygen Delivery Method Sepsis Recent Fever Within 48 Hours Sepsis New/Unexplained Change in Mental Status Sepsis Action Taken by Nursing 03/18/25 18:00 03/18/25 18:00 03/18/25 18:21 Temperature Temperature Source Pulse Rate 79 72 Pulse Rate from SpO2 Sensor Respiratory Rate 14 16 Blood Pressure 138/74 Blood Pressure Mean 100 Pulse Oximetry Oxygen Delivery Method Sepsis Recent Fever Within 48 Hours Sepsis New/Unexplained Change in Mental Status Sepsis Action Taken by Nursing 03/18/25 18:30 03/18/25 20:00 Temperature Temperature Source Pulse Rate 82 Pulse Rate from SpO2 Sensor Respiratory Rate 16 Blood Pressure 128/75 160/80 H Blood Pressure Mean 102 101 Pulse Oximetry 99 Oxygen Delivery Method Room Air Sepsis Recent Fever Within 48 Hours Sepsis New/Unexplained Change in Mental Status Sepsis Action Taken by Intermediate Medications Current Medication List: was personally reviewed by me Laboratory Data Attestation: I reviewed the patient's lab results. 03/18/25 16:00 03/18/25 16:00 Lab Results 03/18/25 03/18/25 03/18/25 Range/Units 16:00 16:34 17:56 WBC 12.37 H (4.8-10.8) K/ul RBC 3.96 L (4.20-5.40) M/uL Hgb 12.6 (12.0-16.0) g/dl Hct 36.8 L (37.0-47.0) % MCV 92.9 (80.0-100.0) fL MCH 31.8 (25.0-34.0) pg MCHC 34.2 (32.0-36.0) g/dL RDW Std Deviation 42.4 (36.4-46.3) fL RDW Coeff of Gayle 12.3 (11.5-14.5) % Plt Count 262 (130-400) K/uL MPV 10.2 (9.4-12.4) fL Immature Gran % (Auto) 0.4 % Neut % (Auto) 80.1 % Lymph % (Auto) 9.9 % [place] % (Auto) 9.2 % Eos % (Auto) 0.2 % Baso % (Auto) 0.2 % Neut # (Auto) 9.92 H (1.40-6.50) K/uL Lymph # (Auto) 1.22 (1.20-3.40) K/uL [place] # (Auto) 1.14 H (0.11-0.59) K/uL Eos # (Auto) 0.02 (0.00-0.50) K/uL Baso # (Auto) 0.02 (0.00-0.20) K/uL Immature Gran # (Auto) 0.05 (0.01-0.20) K/uL ESR 70 H (0-30) mm/hr Sodium 136 (136-145) mmol/L Potassium 5.1 (3.5-5.1) mmol/L Chloride 108 H (98-107) mmol/L Carbon Dioxide 20 L (21-32) mmol/L Anion Gap 8 (3-11) BUN 26 H (6-23) mg/dl Creatinine 1.56 H (0.6-1.2) mg/dl Est Cr Clr Drug Dosing 21.9 ml/min eGFR 31.98 BUN/Creatinine Ratio 16.7 (10-20) Glucose 136 H (70-99(Fasting)) mg/dl Lactate 1.8 (0.4-2.0) mmol/L Calcium 9.3 (8.6-10.3) mg/dl Magnesium 1.4 L (1.7-2.4) mg/dl Total Bilirubin 0.8 (0.2-1.0) mg/dl AST 19 (13-39) U/L ALT 12 (7-52) U/L Alkaline Phosphatase 105 H (34-104) U/L Troponin I High Sens 17.0 H (0-14) pg/ml Total Protein 7.4 (6.0-8.3) gm/dl Albumin 3.6 (3.4-5.0) gm/dl Globulin 3.8 (2.5-4.0) gm/dl Albumin/Globulin Ratio 0.9 (0.9-2) TSH 1.431 (0.300-4.500) uIu/ml Urine Color Yellow Urine Appearance Clear (Clear) Urine pH 5.5 (4.5-7.5) Ur Specific [place] 1.011 (1.000-1.030) Urine Protein Negative (Negative) Urine Glucose (UA) Negative (Negative) Urine Ketones Negative (Negative) Urine Blood Negative (Negative) Urine Nitrite Negative (Negative) Urine Bilirubin Negative (Negative) Urine Urobilinogen Negative (Negative) Ur Leukocyte Esterase 1+ H (Negative) Urine WBC (Auto) 0-5 (0-5) /hpf Urine RBC (Auto) 0-2 (0-2) /hpf U Hyaline Cast (Auto) 11-20 H (0-2) /lpf U Epithel Cells (Auto) 0-2 (0-2) /hpf Urine Bacteria (Auto) None Seen (None Seen) Urine Comment Adenovirus (PCR) (NotDetected) B. pertussis DNA (PCR) (NotDetected) B.parapertussis DNA PCR (NotDetected) C. pneumoniae DNA (PCR) (NotDetected) Coronavirus OC43 (PCR) (NotDetected) Coronavirus HKU1 (PCR) (NotDetected) Coronavirus 229E (PCR) (NotDetected) SARS-CoV-2 (PCR) NEGATIVE (Negative) Coronavirus NL63 (PCR) (NotDetected) Human Metapneumovir PCR (NotDetected) Influenza Type A (PCR) Negative (Neg) Influenza Type B (PCR) Negative (Neg) M. pneumoniae (PCR) (NotDetected) Parainfluenza 1 (PCR) (NotDetected) Parainfluenza 2 (PCR) (NotDetected) Parainfluenza 3 (PCR) (NotDetected) Parainfluenza 4 (PCR) (NotDetected) RSV (RT-PCR) Negative (Neg) RSV (PCR) (NotDetected) Entero/Rhino (PCR) (NotDetected) 03/18/25 Range/Units 20:08 WBC (4.8-10.8) K/ul RBC (4.20-5.40) M/uL Hgb (12.0-16.0) g/dl Hct (37.0-47.0) % MCV (80.0-100.0) fL MCH (25.0-34.0) pg MCHC (32.0-36.0) g/dL RDW Std Deviation (36.4-46.3) fL RDW Coeff of Gayle (11.5-14.5) % Plt Count (130-400) K/uL MPV (9.4-12.4) fL Immature Gran % (Auto) % Neut % (Auto) % Lymph % (Auto) % [place] % (Auto) % Eos % (Auto) % Baso % (Auto) % Neut # (Auto) (1.40-6.50) K/uL Lymph # (Auto) (1.20-3.40) K/uL [place] # (Auto) (0.11-0.59) K/uL Eos # (Auto) (0.00-0.50) K/uL Baso # (Auto) (0.00-0.20) K/uL Immature Gran # (Auto) (0.01-0.20) K/uL ESR (0-30) mm/hr Sodium (136-145) mmol/L Potassium (3.5-5.1) mmol/L Chloride (98-107) mmol/L Carbon Dioxide (21-32) mmol/L Anion Gap (3-11) BUN (6-23) mg/dl Creatinine (0.6-1.2) mg/dl Est Cr Clr Drug Dosing ml/min eGFR BUN/Creatinine Ratio (10-20) Glucose (70-99(Fasting)) mg/dl Lactate (0.4-2.0) mmol/L Calcium (8.6-10.3) mg/dl Magnesium (1.7-2.4) mg/dl Total Bilirubin (0.2-1.0) mg/dl AST (13-39) U/L ALT (7-52) U/L Alkaline Phosphatase (34-104) U/L Troponin I High Sens (0-14) pg/ml Total Protein (6.0-8.3) gm/dl Albumin (3.4-5.0) gm/dl Globulin (2.5-4.0) gm/dl Albumin/Globulin Ratio (0.9-2) TSH (0.300-4.500) uIu/ml Urine Color Urine Appearance (Clear) Urine pH (4.5-7.5) Ur Specific [place] (1.000-1.030) Urine Protein (Negative) Urine Glucose (UA) (Negative) Urine Ketones (Negative) Urine Blood (Negative) Urine Nitrite (Negative) Urine Bilirubin (Negative) Urine Urobilinogen (Negative) Ur Leukocyte Esterase (Negative) Urine WBC (Auto) (0-5) /hpf Urine RBC (Auto) (0-2) /hpf U Hyaline Cast (Auto) (0-2) /lpf U Epithel Cells (Auto) (0-2) /hpf Urine Bacteria (Auto) (None Seen) Urine Comment Adenovirus (PCR) Not Detected (NotDetected) B. pertussis DNA (PCR) Not Detected (NotDetected) B.parapertussis DNA PCR Not Detected (NotDetected) C. pneumoniae DNA (PCR) Not Detected (NotDetected) Coronavirus OC43 (PCR) Not Detected (NotDetected) Coronavirus HKU1 (PCR) Not Detected (NotDetected) Coronavirus 229E (PCR) Not Detected (NotDetected) SARS-CoV-2 (PCR) Not Detected (Negative) Coronavirus NL63 (PCR) Not Detected (NotDetected) Human Metapneumovir PCR Not Detected (NotDetected) Influenza Type A (PCR) Not Detected (Neg) Influenza Type B (PCR) Not Detected (Neg) M. pneumoniae (PCR) Not Detected (NotDetected) Parainfluenza 1 (PCR) Not Detected (NotDetected) Parainfluenza 2 (PCR) Not Detected (NotDetected) Parainfluenza 3 (PCR) Not Detected (NotDetected) Parainfluenza 4 (PCR) Not Detected (NotDetected) RSV (RT-PCR) (Neg) RSV (PCR) Not Detected (NotDetected) Entero/Rhino (PCR) Not Detected (NotDetected) Administered Medications Discontinued Medications Doxycycline Hyclate (Doxycycline Hyclate 100 Mg Cap) 100 mg PO NOW STA Stop: 03/18/25 19:52 Last Admin: 03/18/25 21:03 Dose: 100 mg Documented By: EJ Sodium Chloride (Nss) 500 mls @ 999 mls/hr IV .Q31M ONE Stop: 03/18/25 16:49 Last Infusion: 03/18/25 17:32 Dose: Infused Documented By: Admin: 03/18/25 16:36 Dose: 999 mls/hr Documented By: VIVIANA Magnesium Sulfate/Dextrose (Magnesium Sulfate / D5w) 1 gm in 100 mls @ 100 mls/hr IV Q1H TIM Stop: 03/18/25 18:34 Last Infusion: 03/18/25 18:38 Dose: Infused Documented By: Admin: 03/18/25 17:30 Dose: 100 mls/hr Documented By: Infusion: 03/18/25 17:30 Dose: Infused Documented By: Admin: 03/18/25 16:56 Dose: 100 mls/hr Documented By: LUISA Sodium Chloride (Nss) 500 mls @ 999 mls/hr IV .Q31M ONE Stop: 03/18/25 17:05 Last Infusion: 03/18/25 17:32 Dose: Infused Documented By: Admin: 03/18/25 16:56 Dose: 999 mls/hr Documented By: LUISA Ceftriaxone Sodium (Rocephin) 2,000 mg in 50 mls @ 100 mls/hr IV NOW STA Stop: 03/18/25 19:02 Last Infusion: 03/18/25 20:01 Dose: Infused Documented By: Admin: 03/18/25 18:41 Dose: 100 mls/hr Documented By: LUISA Imaging Data Radiologist's Impression: Chest X-Ray 03/18/25 15:40 Chest radiograph, one view History: Congestion Comparison: None Findings: Single AP view of the chest performed. No focal consolidation or pleural effusion. No pneumothorax. The cardiomediastinal silhouette is within normal limits. Indistinct pulmonary vascularity. No evidence for lymphadenopathy. No visualized bony or soft tissue abnormality. Impression: Indistinct pulmonary vasculature and mild perihilar opacity, suggests pulmonary venous hypertension and possible early pulmonary edema Electronically signed by Ryan Leal 03-18-2025 4:35 PM Discharge Plan Visit Data Chief Complaint: Hypotension Stated Complaint: LOW BP, URGENT CARE REFERRED ED Provider: Yobani Og Discharge Problem: Hypotension, SOHAN (acute kidney injury), Hypomagnesemia, Chills, Leukocytosis Patient Disposition: Admitted As Inpatient Condition: Fair Forms Stand Alone Forms: My [facility], Important Visit Information Prescriptions Prescriptions: No Action atorvastatin [Lipitor] 20 mg Tablet 20 mg PO HS Qty: 30 0RF acetaminophen [Tylenol] 325 mg Tablet 650 mg PO DIRECTED PRN (Reason: PAIN/FEVER) clindamycin HCl 150 mg Capsule 600 mg PO DIRECTED PRN (Reason: PRIOR TO DENTAL PROCEDURES) melatonin 3 mg Tablet 3 mg PO HS PRN (Reason: Sleep) cefadroxil 500 mg capsule 500 mg PO DAILY potassium chloride 20 mEq tablet,ER particles/crystals 20 meq PO BID gabapentin 100 mg capsule 100 mg PO HS nystatin 100,000 unit/gram powder 1 applic TOPICAL TID PRN (Reason: SKIN IRRITATIONS) losartan 100 mg tablet 100 mg PO QAM multivitamin [Daily Multi-Vitamin] Tablet 2 tab PO QDL metoprolol succinate 50 mg tablet extended release 24 hr 50 mg PO QAM amlodipine [Norvasc] 5 mg tablet 5 mg PO DAILY ascorbic acid (vitamin C) [Vitamin C] 500 mg tablet 500 mg PO QAM levothyroxine [Synthroid] 50 mcg tablet 50 mcg PO DAILYBB aspirin 81 mg tablet,chewable 81 mg PO QAM cholecalciferol (vitamin D3) 25 mcg (1,000 unit) capsule 50 mcg PO QDD Referrals Referrals: Franco Leal DO [Primary Care Provider] - Discharge Problem: Hypotension Qualifiers: Hypotension type: unspecified hypotension type Qualified Code(s): I95.9 - Hypotension, unspecified Leukocytosis Qualifiers: Leukocytosis type: unspecified Qualified Code(s): D72.829 - Elevated white blood cell count, unspecified
[2025-03-18 16:31] LABS: Alanine Aminotransferase 12.0 U/L (7-52); Albumin Globulin Ratio 0.9 (0.9-2); Albumin Level 3.6 gm/dl (3.4-5.0); Alkaline Phosphatase 105.0 U/L (34-104); Anion Gap 8.0 (3-11); Bilirubin,Total 0.8 mg/dl (0.2-1.0); Blood Urea Nitrogen 26.0 mg/dl (6-23); Calcium 9.3 mg/dl (8.6-10.3); Carbon Dioxide 20.0 mmol/L (21-32); Chloride 108.0 mmol/L (98-107); Creatinine Clr Calc Pharmacy 21.9 ml/min; Globulin 3.8 gm/dl (2.5-4.0); Glucose 136.0 mg/dl (70-99(Fasting)); Magnesium 1.4 mg/dl (1.7-2.4); Potassium 5.1 mmol/L (3.5-5.1); Sodium 136.0 mmol/L (136-145); Total Protein 7.4 gm/dl (6.0-8.3)
--- NOTE | 2025-03-18 16:35 | XRay Report ---
Chest radiograph, one view History: Congestion Comparison: None Findings: Single AP view of the chest performed. No focal consolidation or pleural effusion. No pneumothorax. The cardiomediastinal silhouette is within normal limits. Indistinct pulmonary vascularity. No evidence for lymphadenopathy. No visualized bony or soft tissue abnormality. Impression: Indistinct pulmonary vasculature and mild perihilar opacity, suggests pulmonary venous hypertension and possible early pulmonary edema Electronically signed by Ryan Leal 03-18-2025 4:35 PM
[2025-03-18] MEDS: SODIUM CHLORIDE 0.9% 500 ML IV ONE ×2 (16:36→16:56)
[2025-03-18 16:46] LABS: Influenza A virus by PCR Negative (Neg); Influenza B virus by PCR Negative (Neg); SARS CoV2 RNA(COVID-19) Ceph NEGATIVE (Negative)
[2025-03-18 16:47] LABS: Thyroid Stimulating Hormone 1.431 uIu/ml (0.300-4.500)
[2025-03-18] MEDS: MAGNESIUM SULFATE / D5W 1 GM/100 ML BAG IV SCH (16:56)
[2025-03-18 18:23] LABS: Appearance Urine Clear (Clear); Bacteria Urine Automated None Seen (None Seen); Epithelial Cell Urine Auto 0-2 /hpf (0-2); Glucose Urine UA Negative (Negative); RBC Urine Automated 0-2 /hpf (0-2); WBC Urine Automated 0-5 /hpf (0-5)
[2025-03-18] MEDS: cefTRIAXone SODIUM 2,000 MG/50 ML BAG IV STA (18:41)
--- NOTE | 2025-03-18 19:16 | History & Physical Report ---
Date of Service March 18, 2025 Assessment & Plan (1) Leukocytosis: (2) Chills: (3) Upper respiratory infection: Plan: Patient is 89 year old female with PMH HTN, HLD, hypothyroidism, CKD III, history sepsis and periprosthetic knee infection presented to ER with c/o flu like symptoms x 3-4 days with cough, nasal congestion Urgent care today with concern of SBP: 99 and P: 100 and thought to have rigors Presented to ER afebrile, P: 97, R: 18, BP 110/58, 94% on room air In ER given Rocephin 2 g IV, total 1 L NSS In ER WBC: 12, negative lactate, negative influenza, RSV and SARS-CoV-2 PCR. UA unremarkable CXR: Indistinct pulmonary vasculature and mild perihilar opacity, suggests pulmonary venous hypertension and possible early pulmonary edema Will continue Rocephin and add doxycycline for now Add CRP and ESR Obtain full Bio[employer] respiratory panel Suspect likely URI, rule out bacteremia with patient's history Blood cultures pending No knee pain or edema or erythema Mucinex, Flonase CBC. BMP in am (4) Hypomagnesemia: Plan: Magnesium: 1.4 In ER given 1 gram magnesium sulfate IV Replace and monitor Hold home potassium supplement as K: 5.1 today (5) SOHAN (acute kidney injury): (6) CKD (chronic kidney disease), stage III: Plan: Cr: 1.5. 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 Dexter orthopedic note on 02/05/2025 and cefadroxil was decreased to once a day from previous twice a day dosing. #HTN Had noted SBP 99 at urgent care today Here in ER BP stable Hold home losartan and amlodipine and monitor Continue metoprolol succinate #HLD Continue atorvastatin #Hypothyroidism Continue levothyroxine DVT Prophylaxis Heparin SQ Admit med tele Full Code as per discussion with pt Follows with Dr Leal for routine care Pt was seen and care coordinated with Dr Lancaster. See addendum I spent a total of 68 minutes reviewing notes, outpatient records, labs, medication, coordinating, documenting and providing care for this patient excluding time spent in the performance of separately billed services and excluding time spent by another provider/QHP. History of Present Illness Chief Complaint: flu like symptoms Primary Care Provider: Franco Leal DO Patient is 89 year old female with PMH HTN, HLD, hypothyroidism, CKD III, history sepsis and periprosthetic knee infection presented to ER with c/o flu like symptoms. Patient reports 3-4 days ago started with cough initially nonproductive, nasal congestion. Today cough was productive yellow. Also reports hoarseness. She is unaware of any fever. Reports family had similar symptoms with fever, congestion and cough prior to her onset of symptoms. Today went to urgent care was noted to be shaking at urgent care and was concern for rigors and had noted BP 99/59 with a pulse of 100 and was afebrile. Allergies Allergy/AdvReac Type Severity Reaction Status Date / Time latex Allergy Intermediate dermatitis Verified 03/18/25 18:17 Penicillins Allergy Intermediate Hives Verified 03/18/25 18:17 celecoxib AdvReac Intermediate shaking Verified 03/18/25 18:17 sensations erythromycin base AdvReac Intermediate ABDOMINAL Verified 03/18/25 18:17 PAIN hydromorphone [From Dilaudid] AdvReac Intermediate NAUSEA/VOMI Verified 03/18/25 18:17 TING oxycodone AdvReac Intermediate Abdominal Verified 03/18/25 18:17 Pain propoxyphene [From Darvon] AdvReac Intermediate Abdominal Verified 03/18/25 18:17 Pain silver sulfadiazine AdvReac Intermediate "BURNING Verified 03/18/25 18:17 SENSATION" Sulfa (Sulfonamide AdvReac Intermediate NAUSEA/VOMITING/SHAKING Verified 03/18/25 18:17 Antibiotics) SENSATION Home Medications Medication Instructions Recorded Confirmed Type atorvastatin 20 mg tablet (Lipitor) 20 mg PO HS #30 tabs 02/27/24 03/18/25 Rx acetaminophen 325 mg tablet 650 mg PO DIRECTED PRN 03/18/25 03/18/25 History (Tylenol) PAIN/FEVER amlodipine 5 mg tablet (Norvasc) 5 mg PO DAILY 03/18/25 03/18/25 History ascorbic acid (vitamin C) 500 mg 500 mg PO QAM 03/18/25 03/18/25 History tablet (Vitamin C) aspirin 81 mg chewable tablet 81 mg PO QAM 03/18/25 03/18/25 History cefadroxil 500 mg capsule 500 mg PO DAILY 03/18/25 03/18/25 History cholecalciferol (vitamin D3) 25 50 mcg PO QDD 03/18/25 03/18/25 History mcg (1,000 unit) capsule clindamycin HCl 150 mg capsule 600 mg PO DIRECTED PRN PRIOR TO 03/18/25 03/18/25 History DENTAL PROCEDURES gabapentin 100 mg capsule 100 mg PO HS 03/18/25 03/18/25 History levothyroxine 50 mcg tablet 50 mcg PO DAILYBB 03/18/25 03/18/25 History (Synthroid) losartan 100 mg tablet 100 mg PO QAM 03/18/25 03/18/25 History melatonin 3 mg tablet 3 mg PO HS PRN Sleep 03/18/25 03/18/25 History metoprolol succinate 50 mg 50 mg PO QAM 03/18/25 03/18/25 History tablet,extended release 24 hr multivitamin (Daily Multi-Vitamin 2 tab PO QDL 03/18/25 03/18/25 History tablet) nystatin 100,000 unit/gram topical 1 applic topical TID PRN SKIN 03/18/25 03/18/25 History powder IRRITATIONS potassium chloride 20 mEq 20 meq PO BID 03/18/25 03/18/25 History tablet,extended release(part/cryst) Past Med/Surg History Problem List (Updated 03/18/25 @ 20:04 by Theresa Stanley PA-C) Leukocytosis (Acute) Chills (Acute) Hypomagnesemia (Acute) SOHAN (acute kidney injury) (Acute) Hypotension (Acute) Right knee DJD Reactive thrombocytosis Status post incision and drainage MSSA (methicillin susceptible Staphylococcus aureus) infection 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, left Effusion, left knee Sepsis Hypertensive crisis Contusion of knee, left (Acute) Contusion of right chest wall (Acute) Fall (Acute) Hyponatremia (Acute) Pelvic fracture (Acute) Conjunctivitis (Acute) Upper respiratory infection (Acute) HTN (hypertension) (Chronic) HTN (hypertension) (Chronic) Heart disease (Chronic) Cancer (Chronic) Cellulitis (Acute) Wound infection (Acute) Medical History (Updated 03/18/25 @ 20:04 by Theresa Stanley PA-C) CKD (chronic kidney disease), stage III Social History Smoking Status: Never smoker Hx Alcohol Use: Yes Alcohol type: wine Hx Substance Use: No Preferred Language: Afghan Communication Ability: Effective 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 Beliefs That Will Affect Care: None Current Living Situation: Alone Current Living Situation Comment: Lives in home by herself Feels Safe at Home: Yes Assistive Devices: Cane and Walker Review of Systems Review of Systems: All systems reviewed & are unremarkable except as noted in HPI & below Results & Data Results & Data Vital Signs (Past 12 Hours) Vital Signs Temp Pulse Resp BP Pulse Ox O2 Del Method 03/18/25 18:30 128/75 03/18/25 18:21 72 16 03/18/25 18:00 79 14 03/18/25 18:00 138/74 03/18/25 17:30 75 19 97 03/18/25 17:21 131/69 03/18/25 17:21 74 19 99 03/18/25 17:00 74 20 97 03/18/25 17:00 117/64 03/18/25 16:51 72 19 96 03/18/25 16:49 74 03/18/25 16:39 95 Room Air 03/18/25 15:35 36.2 C L 97 H 18 110/58 L 94 Room Air Laboratory Results Short CBC 03/18/25 Range/Units 16:00 WBC 12.37 H (4.8-10.8) K/ul Hgb 12.6 (12.0-16.0) g/dl Hct 36.8 L (37.0-47.0) % Plt Count 262 (130-400) K/uL BMP 03/18/25 16:00 Sodium 136 Potassium 5.1 Chloride 108 H Carbon Dioxide 20 L BUN 26 H Creatinine 1.56 H Glucose 136 H Calcium 9.3 Liver Function 03/18/25 Range/Units 16:00 Total Bilirubin 0.8 (0.2-1.0) mg/dl AST 19 (13-39) U/L ALT 12 (7-52) U/L Alkaline Phosphatase 105 H (34-104) U/L Albumin 3.6 (3.4-5.0) gm/dl Urine 03/18/25 Range/Units 17:56 Urine Color Yellow Urine Appearance Clear (Clear) Urine pH 5.5 (4.5-7.5) Ur Specific Hallam 1.011 (1.000-1.030) Urine Protein Negative (Negative) Urine Glucose (UA) Negative (Negative) Diagnostic Findings Chest X-Ray 03/18/25 15:40 Chest radiograph, one view History: Congestion Comparison: None Findings: Single AP view of the chest performed. No focal consolidation or pleural effusion. No pneumothorax. The cardiomediastinal silhouette is within normal limits. Indistinct pulmonary vascularity. No evidence for lymphadenopathy. No visualized bony or soft tissue abnormality. Impression: Indistinct pulmonary vasculature and mild perihilar opacity, suggests pulmonary venous hypertension and possible early pulmonary edema Electronically signed by Ryan Leal 03-18-2025 4:35 PM Supervising Physician Co-Signing Physician Notes Pt seen and examined by me, care coordinated w/ JJeff Stanley PA-C, pls refer to her note above for further detail. Pt is 89 year old F with HTN, HLD, hypothyroidism, CKD III, history of sepsis and periprosthetic knee infection presented to ER with c/o flu like symptoms. Patient reports 3-4 days ago started with cough initially nonproductive, nasal congestion. Today cough was productive yellow. Also reports hoarseness. She is unaware of any fever. Reports family had similar symptoms with fever, congestion and cough prior to her onset of symptoms. Today went to urgent care was noted to be shaking at urgent care and was concern for rigors and had noted BP 99/59 with a pulse of 100 and was afebrile. Currently pt is lying in bed in NAD, she is awake, alert, oriented, able to answer appropriately. + cough, oropharynx w/ mild erythema noted. Lungs clear to auscultation, no wheezing. + rhinorrhea. Heart sounds regular. Abdomen soft, nontender. No LE edema. Well scar healed over left knee, no erythema, or tenderness or edema, pt is moving left knee w/o any difficulty. Pt was seen by orthop. surgeon, Dr. Dexter on 02/05/2025 and was instructed to take cefadroxil one tab a day instead of 2. In ER, blood cultx obtained. will obtain ESR, CRP. Resp. biofire pending. Started on Rocephin in ED, will add doxy for now, nasal spray, mucinex. Cont. to closely monitor. MD Tonny (1) Leukocytosis Leukocytosis type: unspecified Qualified Code(s): D72.829 - Elevated white blood cell count, unspecified
[2025-03-18 21:02] LABS: Chlamydia pneumoniae PCR Not Detected (NotDetected); Coronavirus 229E PCR Not Detected (NotDetected); Coronavirus CoV-2 (COVID19)PCR Not Detected (NotDetected); Coronavirus HKU1 PCR Not Detected (NotDetected); Coronavirus NL63 PCR Not Detected (NotDetected); Coronavirus OC43PCR Not Detected (NotDetected); Human Metapneumovirus PCR Not Detected (NotDetected); Parainfluenza Virus 1 PCR Not Detected (NotDetected); Parainfluenza Virus 2 PCR Not Detected (NotDetected); Parainfluenza Virus 3 PCR Not Detected (NotDetected); Parainfluenza Virus 4 PCR Not Detected (NotDetected); Respiratory Syncytial VirusPCR Not Detected (NotDetected); Rhinovirus/Enterovirus PCR Not Detected (NotDetected)
[2025-03-18] MEDS: DOXYCYCLINE HYCLATE 100 MG CAP PO STA (21:03)
[2025-03-18] MEDS ORDERED: MELATONIN 3 MG TAB PO PRN (22:13)
[2025-03-18] MEDS ORDERED: POLYETHYLENE (MIRALAX) 17 GM PACK PO PRN (22:13)
[2025-03-18] MEDS ORDERED: ACETAMINOPHEN 325 MG TAB PO PRN (22:13)
[2025-03-18] MEDS ORDERED: ONDANSETRON INJ 2 MG/ML 2 ML VIAL IV PRN (22:13)
[2025-03-18] MEDS: HEPARIN SOD 5,000 UNIT/0.5 ML VIAL SQ SCH (22:55)
[2025-03-18] MEDS: MAGNESIUM SULFATE / D5W 1 GM/100 ML BAG IV ONE (22:57)
[2025-03-18] MEDS: ATORVASTATIN 20 MG TAB PO SCH (23:28)
[2025-03-18] MEDS: FLUTICASONE PROPIONATE NA SPR 16 GM BTL SCH (23:28)
[2025-03-18] MEDS: GABAPENTIN 100 MG CAP PO SCH (23:28)
[2025-03-18] MEDS: guaiFENesin 600 MG TABCR PO SCH (23:28)
[2025-03-19] MEDS: LEVOTHYROXINE SODIUM 50 MCG TABLET PO SCH (06:28)
[2025-03-19 08:24] LABS: Hematocrit (blood only) 32.9 % (37.0-47.0); Hemoglobin 11.0 g/dl (12.0-16.0); Immature Granulocytes # (auto) 0.04 K/uL (0.01-0.20); Immature Granulocytes % (auto) 0.4 %; Mean Corpuscular Hemoglobin 31.2 pg (25.0-34.0); Mean Corpuscular Volume 93.2 fL (80.0-100.0); Platelet Count 210 K/uL (130-400); RDW Standard Deviation 42.4 fL (36.4-46.3); Red Blood Count 3.53 M/uL (4.20-5.40); White Blood Count 10.31 K/ul (4.8-10.8)
[2025-03-19] MEDS: ASCORBIC ACID 500 MG TAB PO SCH (08:38)
[2025-03-19] MEDS: ASPIRIN 81 MG CHEW PO SCH (08:38)
[2025-03-19] MEDS: DOXYCYCLINE HYCLATE 100 MG CAP PO SCH (08:38)
[2025-03-19] MEDS: METOPROLOL SUCC 50MG EXT REL TAB PO SCH (08:38)
[2025-03-19 08:41] LABS: Anion Gap 7.0 (3-11); Blood Urea Nitrogen 23.0 mg/dl (6-23); Calcium 9.2 mg/dl (8.6-10.3); Carbon Dioxide 21.0 mmol/L (21-32); Chloride 109.0 mmol/L (98-107); Creatinine Clr Calc Pharmacy 31.0 ml/min; Glucose 106.0 mg/dl (70-99(Fasting)); Magnesium 2.0 mg/dl (1.7-2.4); Potassium 4.8 mmol/L (3.5-5.1); Sodium 137.0 mmol/L (136-145)
[2025-03-19] MEDS: cefTRIAXone SODIUM 2,000 MG/50 ML BAG IV SCH (10:11)
--- NOTE | 2025-03-19 10:56 | Hospitalist Progress Note ---
Date of Service March 19, 2025 Assessment & Plan (1) Leukocytosis: (2) Chills: (3) Upper respiratory infection: Plan: Acute Bronchitis SOHAN Patient is 89 year old female with PMH HTN, HLD, hypothyroidism, CKD III, history sepsis and periprosthetic knee infection presented to ER with c/o flu like symptoms x 3-4 days with cough, nasal congestion Presented to ER afebrile, P: 97, R: 18, BP 110/58, 94% on room air CXR: Indistinct pulmonary vasculature and mild perihilar opacity, suggests pulmonary venous hypertension and possible early pulmonary edema Continue on ceftriaxone and doxycycline Obtain tickborne panel Will follow-up on BMP Creatinine improved with IV fluids; avoid nephrotoxic agent. Continue to hold losartan. (4) Hypomagnesemia: Plan: repleted (5) SOHAN (acute kidney injury): (6) CKD (chronic kidney disease), stage III: Plan: Cr: 1.5. 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 Dexter orthopedic note on 02/05/2025 and cefadroxil was decreased to once a day from previous twice a day dosing. #HTN Had noted SBP 99 at urgent care piror to admission Hold home losartan and amlodipine and monitor Continue metoprolol succinate #HLD Continue atorvastatin #Hypothyroidism Continue levothyroxine DVT Prophylaxis Heparin SQ Full code Time spent evaluating patient, direct bedside care, chart review, placing orders, interpretation of diagnostic studies, discussion with consultants, patient, and family members, as well as other required patient management activities is 50 minutes Please note the above document was generated using voice recognition software. It may contain grammatical, syntax or spelling errors. Any formal questions or concerns about the content, text or information contained within the body of this dictation should be directly addressed to the provider for clarification Admission and Anticipated Discharge Date Admission Date: March 18, 2025 Subjective Patient seen and examined at bedside. She reports that she is feeling little better compared to previous days. She still continues to have cough with mucoid production. She is saturating well on room air as she has been afebrile. Review of Systems Review of Systems: All systems reviewed & are unremarkable except as noted in Subjective Physical Exam Physical Exam: Constitutional: WD/WN, vitals as above, NAD, sitting up in bed, pleasant, conversing easily Respiratory: normal respiratory effort, lungs clear to auscultation, no wheeze, rales, rhonchi. Normal insp/exp effort, no accessory muscle use Cardiovascular: RRR, no murmur, no edema Vessels: no JVD or carotid bruit Chest: normal inspection of chest Abdomen: normal bowel sounds, soft, nontender, no hepatosplenomegaly Musculoskeletal: no cyanosis or clubbing, extremities motor strength 5/5 Skin: no rashes, warm and dry normal turgor Neurologic: PERRL, EOMI, accommodation nl, no face palsy, no dysarthria CN's II- XI intact bilaterally and moves all extremities Psychiatric: A+Ox3, euthymic affect Results & Data Results & Data Vital Signs (Past 12 Hours) Vital Signs Temp Pulse Pulse Resp BP Pulse Ox O2 Del Method 03/19/25 08:00 37.1 C 94 H 20 163/69 H 91 Room Air 03/19/25 07:22 86 03/19/25 02:23 37.0 C 90 18 164/77 H 96 Room Air (1) Leukocytosis Leukocytosis type: unspecified Qualified Code(s): D72.829 - Elevated white blood cell count, unspecified
[2025-03-19] MEDS: MULTIVITAMIN TAB PO SCH (11:06)
[2025-03-19] MEDS: CHOLECALCIFEROL 25 MCG (1000 UNITS) TAB PO SCH (17:03)
--- NOTE | 2025-03-20 06:46 | Electrocardiogram Report ---
Test Reason : Blood Pressure : */* mmHG Vent. Rate : 85 BPM Atrial Rate : 85 BPM P-R Int : 204 ms QRS Dur : 90 ms QT Int : 350 ms P-R-T Axes : 76 -40 62 degrees QTcB Int : 416 ms Normal sinus rhythm Left axis deviation Moderate voltage criteria for LVH, may be normal variant ( R in aVL , [place] product ) Anteroseptal infarct , age undetermined Abnormal ECG When compared with ECG of 22-Feb-2024 18:24, Premature atrial complexes are no longer Present Anteroseptal infarct is now Present Confirmed by Casey Ivan ([id number]) on 03/20/2025 6:45:23 AM Referred By: Confirmed By: Casey Ivan
--- NOTE | 2025-03-20 10:03 | Discharge Summary ---
Date of Service March 20, 2025 Admission HPI Per Admitting Provider Patient is 89 year old female with PMH HTN, HLD, hypothyroidism, CKD III, history sepsis and periprosthetic knee infection presented to ER with c/o flu like symptoms. Patient reports 3-4 days ago started with cough initially nonproductive, nasal congestion. Today cough was productive yellow. Also reports hoarseness. She is unaware of any fever. Reports family had similar symptoms with fever, congestion and cough prior to her onset of symptoms. Today went to urgent care was noted to be shaking at urgent care and was concern for rigors and had noted BP 99/59 with a pulse of 100 and was afebrile. Admission Exam Per Admitting Provider GENERAL: Patient is in no acute distress. HEENT: No acute trauma, normocephalic atraumatic, mucous membranes moist, no nasal congestion. NECK: No stridor, no adenopathy, no meningismus, trachea is midline. LUNGS: Clear to auscultation bilaterally, no wheeze, no rhonchi, breath sounds equal. HEART: Without murmurs gallops or rubs, regular rate and rhythm. ABDOMEN: Soft, nontender, no peritonitis. EXTREMITIES: No cyanosis, full range of motion of all the joints without pain or difficulty. No edema. NEUROLOGIC: Oriented x 3, no acute motor or sensory deficits, no focal weakness. SKIN: No jaundice, no diaphoresis. Principal Diagnosis Acute Bronchitis SOHAN Mild Pneumonia Discharge Exam Constitutional: WD/WN, vitals as above, NAD, sitting up in bed, pleasant, conversing easily Respiratory: normal respiratory effort, lungs clear to auscultation, no wheeze, rales, rhonchi. Normal insp/exp effort, no accessory muscle use Cardiovascular: RRR, no murmur, no edema Vessels: no JVD or carotid bruit Chest: normal inspection of chest Abdomen: normal bowel sounds, soft, nontender, no hepatosplenomegaly Musculoskeletal: no cyanosis or clubbing, extremities motor strength 5/5 Skin: no rashes, warm and dry normal turgor Neurologic: PERRL, EOMI, accommodation nl, no face palsy, no dysarthria CN's II- XI intact bilaterally and moves all extremities Psychiatric: A+Ox3, euthymic affect Discharge Data Allergies Allergy/AdvReac Type Severity Reaction Status Date / Time latex Allergy Intermediate dermatitis Verified 03/18/25 18:17 Penicillins Allergy Intermediate Hives Verified 03/18/25 18:17 celecoxib AdvReac Intermediate shaking Verified 03/18/25 18:17 sensations erythromycin base AdvReac Intermediate ABDOMINAL Verified 03/18/25 18:17 PAIN hydromorphone [From Dilaudid] AdvReac Intermediate NAUSEA/VOMI Verified 03/18/25 18:17 TING oxycodone AdvReac Intermediate Abdominal Verified 03/18/25 18:17 Pain propoxyphene [From Darvon] AdvReac Intermediate Abdominal Verified 03/18/25 18:17 Pain silver sulfadiazine AdvReac Intermediate "BURNING Verified 03/18/25 18:17 SENSATION" Sulfa (Sulfonamide AdvReac Intermediate NAUSEA/VOMITING/SHAKING Verified 03/18/25 18:17 Antibiotics) SENSATION Hospital Course (1) Leukocytosis: (2) Chills: (3) Upper respiratory infection: (4) Hypomagnesemia: (5) SOHAN (acute kidney injury): (6) CKD (chronic kidney disease), stage III: Acute Bronchitis SOHAN Mild Pneumonia Patient is 89 year old female with PMH HTN, HLD, hypothyroidism, CKD III, history sepsis and periprosthetic knee infection presented to ER with c/o flu like symptoms x 3-4 days with cough, nasal congestion Presented to ER afebrile, P: 97, R: 18, BP 110/58, 94% on room air CXR: Indistinct pulmonary vasculature and mild perihilar opacity, suggests pulmonary venous hypertension and possible early pulmonary edema Patient was admitted to medical floor; was started on antibiotic, IV fluids. She reported improvement in her symptoms gradually over the course of the hospitalization. Her blood culture remained negative for 24 hours. Creatinine down trended to baseline. Patient was saturating well on room air. Patient was discharged home with instructions to follow-up with her PCP. Please note the above document was generated using voice recognition software. It may contain grammatical, syntax or spelling errors. Any formal questions or concerns about the content, text or information contained within the body of this dictation should be directly addressed to the provider for clarification Total Time Total Time Spent Total Time Spent (In Minutes): 45 Total Time Includes: Examination of the Patient, Discharge Planning, Medication Reconciliation, Communication With Other Providers and Other Discharge Plan Discharge Items Patient Disposition: Home - Self-Care Reason For Visit: ILLNESS Discharge Diagnosis: Acute Bronchitis SOHAN Condition on Discharge: Fair Activity: Resume your previous activity Non-emergency contact: Primary Care Provider Call non-emergency contact if: you have any medication questions and your symptoms worsen Follow-up/Referrals: Franco Leal DO [Primary Care Provider] - (Date & Time 03/26/2025 1:40 PM Provider: Lara Price DO [facility] ) Diet: Regular Addtl Attending Provider Instructions: You were admitted to the hospital due to acute bronchitis and mild pneumonia. You are prescribed following antibiotic for 3 days Take cefdinir 300 mg twice a day for 3 days Take doxycycline 100 mg twice a day for 3 days After completion of the antibiotic course; continue to take cefadroxil once a day. Keep yourself hydrated. Drink hot water with Lemon juice/honey to help with hoarness of voice. Pending Studies at Discharge: No Stand-Alone Forms: My [facility] [employer], Smoking Cessation Medications and DC Order Prescriptions: New doxycycline hyclate 100 mg Capsule 100 mg PO BID 3 Days Qty: 6 0RF guaifenesin [Mucinex] 600 mg Tablet Extended Release 12hr 600 mg PO Q12 5 Days Qty: 10 0RF cefdinir 300 mg capsule 300 mg PO BID 3 Days Qty: 6 0RF Continued atorvastatin [Lipitor] 20 mg Tablet 20 mg PO HS Qty: 30 0RF acetaminophen [Tylenol] 325 mg Tablet 650 mg PO DIRECTED PRN (Reason: PAIN/FEVER) clindamycin HCl 150 mg Capsule 600 mg PO DIRECTED PRN (Reason: PRIOR TO DENTAL PROCEDURES) melatonin 3 mg Tablet 3 mg PO HS PRN (Reason: Sleep) potassium chloride 20 mEq tablet,ER particles/crystals 20 meq PO BID gabapentin 100 mg capsule 100 mg PO HS nystatin 100,000 unit/gram powder 1 applic TOPICAL TID PRN (Reason: SKIN IRRITATIONS) losartan 100 mg tablet 100 mg PO QAM multivitamin [Daily Multi-Vitamin] Tablet 2 tab PO QDL metoprolol succinate 50 mg tablet extended release 24 hr 50 mg PO QAM amlodipine [Norvasc] 5 mg tablet 5 mg PO DAILY ascorbic acid (vitamin C) [Vitamin C] 500 mg tablet 500 mg PO QAM levothyroxine [Synthroid] 50 mcg tablet 50 mcg PO DAILYBB aspirin 81 mg tablet,chewable 81 mg PO QAM cholecalciferol (vitamin D3) 25 mcg (1,000 unit) capsule 50 mcg PO QDD Held cefadroxil 500 mg capsule 500 mg PO DAILY Hold Instructions: Resume on 03/23/25. Resume after completion of antiboitics Discharge Orders: Discharge Order (Routine); Ordered 03/20/25 Ordered By: Chi eBnavidez Admission Data Admit Date/Time: 03/18/25 19:30 Attending Provider: Chi Benavidez Admit Provider: Clif Lancaster Primary Care Provider: Franco Leal Other Interventions: Discharge Summary Assessment (RN) Last Done: 03/20/25 08:44
[2025-03-20 11:14] VITALS: BP 134/68; PULSE 69; RESP 18; TEMP 98.2; O2SAT 94
== END 2025-03-20 13:23 | disposition home or self-care (01) | DRG 202 ==
LOC: ED 15:27 → SUATTDRO 19:30 → 2N 19:30